=== PATIENT | female | born 1990 | race African-American/Black ===

== ENCOUNTER 2019-12-21 11:58 | Emergency (ER) | payer OTHER, SELFPAY ==
--- NOTE | 2019-12-21 12:14 | ED.GENADULT ---
HPI - General Adult General Chief complaint: Skin/Abscess/Foreign Body Stated complaint: insect bite Time Seen by Provider: 12/21/19 12:25 Source: patient Mode of arrival: ambulatory Limitations: no limitations History of Present Illness HPI narrative: 29-year-old female patient presents the [facility] care with complaints of swelling to the right wrist area for the past 2 days. Patient states that she was outside on december and felt a sting to her left wrist. Patient states that is now warm, swollen and red. Patient does have history of type 1 diabetes. Denies any fevers. Denies any chest pain or shortness of breath. Denies any nausea, vomiting or diarrhea. Related Data Home Medications Medication Instructions Recorded Confirmed furosemide 20 mg PO DAILY 12/21/19 12/21/19 insulin lispro 100 sliding scale dose SUBCUT 12/21/19 12/21/19 DIRECTED losartan 25 mg PO DAILY 12/21/19 12/21/19 potassium chloride 10 meq PO DAILY 12/21/19 12/21/19 pravastatin 80 mg PO DAILY 12/21/19 12/21/19 Allergies Allergy/AdvReac Type Severity Reaction Status Date / Time No Known Allergies Allergy Unverified 05/21/18 12:06 Review of Systems Review of Systems: Narrative: CONSTITUTIONAL: Denies fever, chills, or sweats. EYES: Denies visual changes, redness, or discharge. ENT: Denies rhinorrhea, congestion, sore throat, or otalgia. CARDIOVASCULAR: Denies chest pain, palpitations, or edema. RESPIRATORY: Denies cough or dyspnea. GASTROINTESTINAL: Denies abdominal pain, nausea, vomiting, or diarrhea. GENITOURINARY: Denies dysuria or hematuria. SKIN: Denies rash or itching. Positive swelling, redness to right wrist MUSCULOSKELETAL: Denies back pain, joint pain, or myalgia. NEUROLOGIC: Denies headache, numbness, or weakness. PSYCHIATRIC: Denies anxiety or depression. PMFSH Past Medical History Medical History (Updated 12/21/19 @ 12:37 by YIN Gardner) Hypercholesterolemia Type 1 diabetes Comments At the time of my signature I agree with nursing past medical history, surgical, social, and family history. There is no relevant family history pertinent to the presenting complaint. Exam Narrative: Exam Narrative: GENERAL: Well-appearing, well-nourished, and in no acute distress. HEAD: Normocephalic, atraumatic. EYES: PERRLA and EOMI. ENT: Nares clear, no rhinorrhea or epistaxis. Mucous membranes moist. NECK: Supple. No lymphadenopathy CHEST: Clear to auscultation. No respiratory distress. HEART: Regular rate and rhythm. No murmur heard. Normal peripheral pulses. ABDOMEN: Soft, nontender, nondistended, normal active bowel sounds. EXTREMITIES: Normal range of motion. No edema. SKIN: Warm, dry, no rash. Patient has swelling, redness and warmth noted to the right wrist area that extends about custodial up the forearm and has little bit of the base of the thumb involved. Patient has good range of motion. Pulses intact. There is also a small little sting noted in the middle of the swelling which patient states that that is where most of the pain is at. NEURO: No focal deficits. Alert and oriented x3. Course Vital Signs Vital signs: Vital Signs Temperature 36.1 C L 12/21/19 12:19 Pulse Rate 98 12/21/19 12:19 Respiratory Rate 16 12/21/19 12:19 Blood Pressure 118/73 12/21/19 12:19 Pulse Oximetry 99 12/21/19 12:19 Temperature 36.1 C L 12/21/19 12:19 Pulse Rate 98 12/21/19 12:19 Respiratory Rate 16 12/21/19 12:19 Blood Pressure 118/73 12/21/19 12:19 Pulse Oximetry 99 12/21/19 12:19 Vital signs reviewed. Medical Decision Making Differential Diagnosis Differential Diagnosis: Differential diagnosis: Abscess, cellulitis, hidradenitis, laceration, puncture wound. Cussed with patient it does appear that she most likely has developed a cellulitis from the sting and due to the fact that she is a type I diabetic we will discharge her home with antibiotics. Patient verbalized understanding of this d
[2019-12-21 12:19] VITALS: BP 118/73; PULSE 98; RESP 16; TEMP 36.1; O2SAT 99
== END 2019-12-21 12:45 | disposition home or self-care (01) ==
PROVIDERS: Emergency Provider Nurse Practitioner Family; PCP Internal Medicine
DX: L03.113 Cellulitis of right upper limb (principal); E10.9 Type 1 diabetes mellitus without complications; E78.00 Pure hypercholesterolemia, unspecified
CPT/HCPCS: 99213; G0463

== ENCOUNTER 2020-02-14 14:55 | Emergency (ER) | payer OTHER, SELFPAY ==
[2020-02-14 15:05] VITALS: BP 121/74; PULSE 105; RESP 16; TEMP 35.9; O2SAT 99
--- NOTE | 2020-02-14 15:12 | ED.EAR ---
HPI - Ear Problem General Chief complaint: Ear Stated complaint: ear/facial pain Time Seen by Provider: 02/14/20 15:13 Source: patient and RN notes reviewed Mode of arrival: ambulatory Limitations: no limitations History of Present Illness HPI Narrative: 29-year-old female with history of diabetes presents with concern for bilateral ear pain, nasal congestion, rhinorrhea, postnasal drainage. She denies fever, cough, shortness of breath, body aches. Reports she tried [id number] cold medicine with no relief. MD Complaint: ear pain Related Data Home Medications Medication Instructions Recorded Confirmed furosemide 20 mg PO DAILY 12/21/19 02/14/20 insulin lispro 2 unit CONTINUOUS SUBCUTANEOUS 12/21/19 02/14/20 INFUSION DIRECTED losartan 25 mg PO DAILY 12/21/19 02/14/20 potassium chloride 10 meq PO DAILY 12/21/19 02/14/20 pravastatin 80 mg PO DAILY 12/21/19 02/14/20 Allergies Allergy/AdvReac Type Severity Reaction Status Date / Time No Known Allergies Allergy Verified 02/14/20 15:00 Review of Systems Review of Systems: Narrative: CONSTITUTIONAL: Denies malaise, chills, sweats, or fever. EYES: Denies visual changes, redness, or discharge. ENT: Reports rhinorrhea, congestion, otalgia. Denies sinus pain, and sore throat. CARDIOVASCULAR: Denies chest pain, palpitations, or edema. RESPIRATORY: Reports occasional cough. Denies dyspnea. GASTROINTESTINAL: Denies abdominal pain, nausea, vomiting, diarrhea SKIN: Denies rash or itching. MUSCULOSKELETAL: Denies myalgia. NEUROLOGIC: Denies headache. All systems reviewed & are unremarkable except as noted in HPI and below PMFSH Past Medical History Medical History (Updated 02/14/20 @ 15:21 by Jania Bryan NP) Hypercholesterolemia Type 1 diabetes Social History Social History Gender identity (if verbalized by the patient): Female Comments At time of signature, agree with nursing past medical, surgical, social and family history. There is no relevant family history pertinent to the presenting complaint Exam Narrative: Exam Narrative: GENERAL: Well-appearing, well-nourished, and in no acute distress. HEAD: Normocephalic EYES: PERRLA, conjunctivae clear ENT: Nares clear, turbinates edematous and erythematous, clear discharge. Mucous membranes moist. TM pearly de la rosa with dull light reflex bilaterally; no tragal tenderness. Oropharynx not erythematous without lesions. Tonsils not enlarged and without exudate, no drooling, no hoarseness, no trismus, uvula midline. NECK: Supple. No lymphadenopathy CHEST: Clear to auscultation, breath sounds equal. No wheezing, rhonchi, rales, or stridor. No respiratory distress, speaks in full sentences. HEART: Regular rate and rhythm. No murmur heard. SKIN: Warm, dry, no rash. NEURO: Alert and oriented x3. PSYCH: Normal mood and affect Course Course Emergency Course: Patient is aware of diagnosis, understands and agrees to treatment plan. Anticipatory guidance given. Patient agrees to follow-up as directed and is aware of reasons to seek care at the emergency department. Portions of this record may have been created with voice recognition software Vital Signs Vital signs: Vital Signs Temperature 96.7 F L 02/14/20 15:05 Pulse Rate 105 H 02/14/20 15:05 Respiratory Rate 16 02/14/20 15:05 Blood Pressure 121/74 02/14/20 15:05 Pulse Oximetry 99 02/14/20 15:05 Temperature 96.7 F L 02/14/20 15:05 Pulse Rate 105 H 02/14/20 15:05 Respiratory Rate 16 02/14/20 15:05 Blood Pressure 121/74 02/14/20 15:05 Pulse Oximetry 99 02/14/20 15:05 Reviewed. Medical Decision Making MDM Narrative Medical decision making narrative: Differential diagnosis considered: Olivo virus, strep pharyngitis, allergic rhinitis, upper respiratory tract infection, sinusitis, rhinosinusitis, nasopharyngitis. viral pharyngitis, otitis media, otitis externa, pneumonia, bronch
== END 2020-02-14 15:30 | disposition home or self-care (01) ==
PROVIDERS: Emergency Provider Nurse Practitioner; PCP Internal Medicine
DX: H92.03 Otalgia, bilateral (principal); J06.9 Acute upper respiratory infection, unspecified; Z20.828 Contact with and (suspected) exposure to other viral communicable diseases; E78.00 Pure hypercholesterolemia, unspecified; E10.9 Type 1 diabetes mellitus without complications
CPT/HCPCS: 99213; G0463

== ENCOUNTER 2020-04-04 08:32 | Emergency (ER) | payer OTHER, SELFPAY ==
--- NOTE | ~2020-04-04 | CT_ITS ---
EXAMINATION: CT abdomen pelvis w con DATE: 04/04/2020 12:25 INDICATION: Dysuria. Abdominal pain. TECHNIQUE: Computed tomography (CT) of the abdomen and pelvis was performed with 100 mL Omnipaque 350 intravenous contrast. Automated exposure control and iterative reconstruction technique were employe d. The dose-length product was 683.82 mGy-cm. COMPARISON: None. FINDINGS: The visualized portions of the lung bases are clear without pneumonia or pleural effusion. The heart size is normal. No pericardial effusion. The liver, gallbladder, spleen, pancreas, and adre nal glands are normal. There are bilateral striated nephrograms, consistent with pyelonephritis. Ther e are no dilated loops of bowel. The appendix is normal. There are no pathologically enlarged lymph n odes. There is no free intraperitoneal fluid. The bones are unremarkable. IMPRESSION: 1. Bilateral pyelonephritis. Reviewed, dictated and finalized at location A.
[2020-04-04 08:40] VITALS: BP 133/87; PULSE 100; RESP 20; TEMP 36.2; O2SAT 100
[2020-04-04 08:58] LABS: Add Urine Microscopic? YES; Appearance Urine Clear (Clear); Bilirubin Urine Negative (Negative); Blood Urine Negative (Negative); Color Urine Colorless (Yellow); Glucose Urine UA 3+ mg/dL (Negative); Ketones Urine Negative (Negative); Leukocyte Esterase Ur Negative LEU/UL (Negative); Mucus Urine Rare /lpf; Nitrate Urine Negative (Negative); Protein Urine 1+ mg/dL (Negative); RBC Urine 0-2 /hpf (0-2); Specific Grav Ur 1.028 (1.001-1.035); Squamous Epithelial Cell Urine Occasional /hpf (Few); Urobilinogen Urine Negative mg/dL (<2.0); WBC Urine 0-3 /hpf
--- NOTE | 2020-04-04 09:10 | ED.GENADULT ---
HPI - General Adult General Chief complaint: Urogenital-Female Stated complaint: UTI sx Time Seen by Provider: 04/04/20 08:59 Source: patient History of Present Illness HPI narrative: Patient is a 29 y/o female complaining of lower abdominal pain since yesterday. She describes her pain as burning and knocking and rates it as 7/10. Her pain radiates to her pain. There is no alleviating or exacerbating factor. She has some dysuria and one episode of vomiting. She has no diarrhea. Related Data Home Medications Medication Instructions Recorded Confirmed furosemide 20 mg PO DAILY 12/21/19 02/14/20 insulin lispro 2 unit CONTINUOUS SUBCUTANEOUS 12/21/19 02/14/20 INFUSION DIRECTED losartan 25 mg PO DAILY 12/21/19 02/14/20 potassium chloride 10 meq PO DAILY 12/21/19 02/14/20 pravastatin 80 mg PO DAILY 12/21/19 02/14/20 Allergies Allergy/AdvReac Type Severity Reaction Status Date / Time No Known Allergies Allergy Verified 02/14/20 15:00 Review of Systems Constitutional: Constitutional: Denies chills, Denies fever(s), Denies headache(s) and Denies weakness Eyes: Eyes: Denies blurry vision ENT: Denies headache(s) and Denies neck pain Cardiovascular: Cardiovascular: Denies chest pain and Denies dyspnea Respiratory: Respiratory: Denies cough and Denies dyspnea Gastrointestinal: Gastrointestinal: Reports abdominal pain, Denies diarrhea, Reports nausea and Reports vomiting Genitourinary: Genitourinary: Denies hematuria and Reports dysuria Musculoskeletal: Musculoskeletal: Denies back pain and Denies neck pain Neurologic: Denies headache(s) and Denies weakness [facility] Past Medical History Medical History Hypercholesterolemia Type 1 diabetes Social History Social History Gender identity (if verbalized by the patient): Female Exam Const: General: no acute distress and well developed Orientation/consciousness: oriented to person, oriented to place, oriented to time and patient oriented x3 HENMT: Head: normocephalic Ears: external ears normal General nose exam: Normal external nose present Eyes: General: appearance normal, both eyes and all related structures Conjunctivae: conjunctivae normal Neck: Neck: normal visual inspection and full ROM Chest: Chest palpation & inspection: normal inspection of the chest and no tenderness Resp: Effort & Inspection: normal respiratory effort Auscultation: clear to auscultation bilaterally Cardio: Rate: regular rate Rhythm: regular rhythm GI: GI Palp: No abdominal tenderness and Yes Soft to palpation Skin: General skin exam: normal color and turgor normal Neuro: General: oriented to person, oriented to place, oriented to time and patient oriented x3 Cognition (Neuro): normal cognition Extrem: General: normal to inspection, full ROM and no pedal edema Psych: Appearance: grossly normal Mental Status: mental status grossly normal Affect: normal affect Course Vital Signs Vital signs: Vital Signs Temperature 36.2 C L 04/04/20 08:40 Pulse Rate 100 04/04/20 08:40 Respiratory Rate 20 04/04/20 08:40 Blood Pressure 133/87 04/04/20 08:40 Pulse Oximetry 100 04/04/20 08:40 Temperature 36.2 C L 04/04/20 08:40 Pulse Rate 100 04/04/20 08:40 Respiratory Rate 20 04/04/20 08:40 Blood Pressure 133/87 04/04/20 08:40 Pulse Oximetry 100 04/04/20 08:40 Medical Decision Making Vital Signs Vital Signs: Vital Signs Temperature 36.2 C L 04/04/20 08:40 Pulse Rate 100 04/04/20 08:40 Respiratory Rate 20 04/04/20 08:40 Blood Pressure 133/87 04/04/20 08:40 Pulse Oximetry 100 04/04/20 08:40 Temperature 36.2 C L 04/04/20 08:40 Pulse Rate 100 04/04/20 08:40 Respiratory Rate 20 04/04/20 08:40 Blood Pressure 133/87 04/04/20 08:40 Pulse Oximetry 100 04/04/20 08:40 Lab Data Labs: Lab Results 10
[2020-04-04 09:18] LABS: Basophils Absolute Auto 0.1 K/mm3 (0.0-0.1); Basophils Percent Auto 0.6 % (0.2-1.2); Eosinophils Absolute Auto 0.4 K/mm3 (0-0.3); Hematocrit 40.4 % (37.0-47.0); Hemoglobin 13.5 g/dL (12.0-15.0); Immature Granulocyte Absolute 0.05 K/mm3 (0.00-0.031); Immature Granulocyte Percent A 0.4 % (0-0.5); Lymphocytes Absolute Auto 4.66 K/mm3 (0.9-3.2); Lymphocytes Percent Auto 33.6 % (18.3-44.2); Mean Corpuscular HGB Conc 33.4 g/dl (32-36); Mean Corpuscular Hemoglobin 29.1 pg (26-34); Mean Corpuscular Volume 87.1 fl (80-100); Mean Platelet Volume 11.2 fl (7.4-10.4); Monocytes Absolute Auto 0.7 K/mm3 (0.1-0.6); Monocytes Percent Auto 5.3 % (2.6-8.5); Neutrophils Absolute Auto 7.9 K/mm3 (1.3-6.7); Neutrophils Percent Auto 57.1 % (45.5-73.1); Platelet Count Result 391 k/mm3 (150-375); Red Blood Count 4.64 M/mm3 (4.2-5.4); Red Cell Distribution Width 12.1 % (11.5-14.5); White Blood Count 13.9 K/mm3 (4.5-10.0)
--- NOTE | 2020-04-04 09:29 | ED.GENADULT ---
HPI - General Adult General Chief complaint: Urogenital-Female Stated complaint: UTI sx Time Seen by Provider: 04/04/20 08:59 Source: patient History of Present Illness HPI narrative: Patient is a 29 y/o female complaining of lower abdominal pain since yesterday. She describes her pain as burning and knocking. She rates her pain as 7/10. Her pain radiates to her back. There is no alleviating or exacerbating factor. She had one episode of vomiting. She also has some dysuria. Related Data Home Medications Medication Instructions Recorded Confirmed furosemide 20 mg PO DAILY 12/21/19 02/14/20 insulin lispro 2 unit CONTINUOUS SUBCUTANEOUS 12/21/19 02/14/20 INFUSION DIRECTED losartan 25 mg PO DAILY 12/21/19 02/14/20 potassium chloride 10 meq PO DAILY 12/21/19 02/14/20 pravastatin 80 mg PO DAILY 12/21/19 02/14/20 Allergies Allergy/AdvReac Type Severity Reaction Status Date / Time No Known Allergies Allergy Verified 02/14/20 15:00 Review of Systems Constitutional: Constitutional: Denies chills, Denies fever(s), Denies headache(s) and Denies weakness Eyes: Eyes: Denies blurry vision ENT: Denies headache(s) and Denies neck pain Cardiovascular: Cardiovascular: Denies chest pain and Denies dyspnea Respiratory: Respiratory: Denies cough and Denies dyspnea Gastrointestinal: Gastrointestinal: Reports abdominal pain, Denies diarrhea, Reports nausea and Reports vomiting Genitourinary: Genitourinary: Denies hematuria and Reports dysuria Musculoskeletal: Musculoskeletal: Denies back pain and Denies neck pain Neurologic: Denies headache(s) and Denies weakness [facility] Past Medical History Medical History Hypercholesterolemia Type 1 diabetes Social History Social History Gender identity (if verbalized by the patient): Female Exam Const: General: no acute distress and well developed Orientation/consciousness: oriented to person, oriented to place, oriented to time and patient oriented x3 HENMT: Head: normocephalic Ears: external ears normal General nose exam: Normal external nose present Eyes: General: appearance normal, both eyes and all related structures Conjunctivae: conjunctivae normal Neck: Neck: normal visual inspection and full ROM Chest: Chest palpation & inspection: normal inspection of the chest and no tenderness Resp: Effort & Inspection: normal respiratory effort Auscultation: clear to auscultation bilaterally Cardio: Rate: regular rate Rhythm: regular rhythm GI: GI Palp: No abdominal tenderness and Yes Soft to palpation Skin: General skin exam: normal color and turgor normal Neuro: General: oriented to person, oriented to place, oriented to time and patient oriented x3 Cognition (Neuro): normal cognition Extrem: General: normal to inspection, full ROM and no pedal edema Psych: Appearance: grossly normal Mental Status: mental status grossly normal Affect: normal affect Course Reevaluation(s) Reevaluation #1: Rechecked. Discussed with patient about lab and CT results. Informed patient about high BS. She has insulin pump. She states that she adjust her pump accordingly. Date: 04/04/20 Time: 13:20 Vital Signs Vital signs: Vital Signs Temperature 36.2 C L 04/04/20 08:40 Pulse Rate 100 04/04/20 08:40 Respiratory Rate 20 04/04/20 08:40 Blood Pressure 133/87 04/04/20 08:40 Pulse Oximetry 100 04/04/20 08:40 Temperature 36.2 C L 04/04/20 08:40 Pulse Rate 76 04/04/20 13:41 Respiratory Rate 18 04/04/20 13:41 Blood Pressure 128/97 H 04/04/20 13:41 Pulse Oximetry 94 04/04/20 13:41 Medical Decision Making Vital Signs Vital Signs: Vital Signs Temperature 36.2 C L 04/04/20 08:40 Pulse Rate 100 04/04/20 08:40 Respiratory Rate 20 04/04/20 08:40 Blood Pressure 133/87 04/04/20 08:40 Pulse Oximetry 100 04/04/20 08:40 Temperatu
[2020-04-04 10:26] LABS: Alanine Aminotransferase 21 U/L (4-35); Albumin Level 3.8 g/dL (3.5-5.1); Alkaline Phosphatase 86 U/L (38-126); Anion Gap 6 mmol/L (8-16); Aspartate Amino Transferase 20 U/L (14-36); Bilirubin,Total 0.3 mg/dL (0.2-1.3); Blood Urea Nitrogen 21 mg/dL (7-17); Calcium 10.4 mg/dL (8.4-10.2); Carbon Dioxide 29 mmol/L (22-30); Chloride 99 mmol/L (98-107); Estimated CRCL calculation 74 ml/min; Estimated Glomerular Filt Rate > 60; Glucose 423 mg/dL (65-105); Lipase 36 U/L (23-300); Potassium 4.3 mmol/L (3.4-5.0); Sodium 134 mmol/L (137-145)
--- NOTE | 2020-04-04 11:11 | PC.NURSE ---
rn report from delilah
[2020-04-04 13:41] VITALS: BP 128/97; PULSE 76; RESP 18; O2SAT 94
== END 2020-04-04 13:43 | disposition home or self-care (01) ==
PROVIDERS: Emergency Provider Emergency Medicine; PCP Internal Medicine
DX: E10.65 Type 1 diabetes mellitus with hyperglycemia (principal); E78.00 Pure hypercholesterolemia, unspecified; Z79.4 Long term (current) use of insulin; N12 Tubulo-interstitial nephritis, not specified as acute or chronic
CPT/HCPCS: 36415; 74177; 80053; 81001; 81025; 83690; 85025; 99284; Q9967

== ENCOUNTER 2020-07-27 16:05 | Emergency (ER) | payer OTHER, SELFPAY ==
--- NOTE | 2020-07-27 16:10 | ED.URI ---
HPI - URI/Sore Throat General Chief Complaint: Upper Respiratory Infection Stated Complaint: body chills/cough/sore throat/runny nose Time Seen by Provider: 07/27/20 16:45 Source: patient and RN notes reviewed Mode of arrival: ambulatory Limitations: no limitations History of Present Illness HPI Narrative: 30-year-old female with history of diabetes presents with concern for body aches, chills, cough, runny nose, ears ringing, loss of taste. Reports symptoms started yesterday. She denies fever, dyspnea, nausea, vomiting, diarrhea MD elicited complaint: cough Related Data Home Medications Medication Instructions Recorded Confirmed insulin lispro 2 unit CONTINUOUS SUBCUTANEOUS 12/21/19 02/14/20 INFUSION DIRECTED losartan 25 mg PO DAILY 12/21/19 02/14/20 pravastatin 80 mg PO DAILY 12/21/19 02/14/20 omega-3 fatty acids-fish oil [Fish cap 07/27/20 Oil] Allergies Allergy/AdvReac Type Severity Reaction Status Date / Time No Known Allergies Allergy Verified 02/14/20 15:00 Review of Systems Review of Systems: Narrative: CONSTITUTIONAL: Reports malaise, chills. Denies sweats, or fever. EYES: Denies visual changes, redness, or discharge. ENT: Reports rhinorrhea, congestion, otalgia. Denies sore throat. CARDIOVASCULAR: Denies chest pain, palpitations, or edema. RESPIRATORY: Reports occasional cough. Denies dyspnea. GASTROINTESTINAL: Denies abdominal pain, nausea, vomiting, diarrhea SKIN: Denies rash or itching. MUSCULOSKELETAL: Reports myalgia. NEUROLOGIC: Denies headache. All systems reviewed & are unremarkable except as noted in HPI and below PMFSH Past Medical History Medical History Hypercholesterolemia Type 1 diabetes Social History Social History Gender identity (if verbalized by the patient): Female Comments At time of signature, agree with nursing past medical, surgical, social and family history. There is no relevant family history pertinent to the presenting complaint Exam Narrative: Exam Narrative: GENERAL: Well-appearing, well-nourished, and in no acute distress. HEAD: Normocephalic EYES: PERRLA, conjunctivae clear ENT: Nares clear, turbinates erythematous, clear discharge. Mucous membranes moist. TM pearly de la rosa with dull light reflex bilaterally; no tragal tenderness. Oropharynx not erythematous without lesions. Tonsils not enlarged and without exudate, no drooling, no hoarseness, no trismus, uvula midline. NECK: Supple. No lymphadenopathy CHEST: Clear to auscultation, breath sounds equal. No wheezing, rhonchi, rales, or stridor. No respiratory distress, speaks in full sentences. HEART: Regular rate and rhythm. No murmur heard. SKIN: Warm, dry, no rash. NEURO: Alert and oriented x3. PSYCH: Normal mood and affect Course Course Emergency Course: Patient is aware of diagnosis, understands and agrees to treatment plan. Anticipatory guidance given. Patient agrees to follow-up as directed and is aware of reasons to seek care at the emergency department. Portions of this record may have been created with voice recognition software Vital Signs Vital signs: Vital Signs Temperature 98.5 F 07/27/20 16:22 Pulse Rate 100 07/27/20 16:22 Respiratory Rate 16 07/27/20 16:22 Blood Pressure 114/80 07/27/20 16:22 Pulse Oximetry 98 07/27/20 16:22 Temperature 98.5 F 07/27/20 16:22 Pulse Rate 100 07/27/20 16:22 Respiratory Rate 16 07/27/20 16:22 Blood Pressure 114/80 07/27/20 16:22 Pulse Oximetry 98 07/27/20 16:22 Reviewed. MDM - URI/Sore Throat MDM Narrative Medical decision making narrative: Differential diagnosis considered: Olivo virus, strep pharyngitis, allergic rhinitis, upper respiratory tract infection, sinusitis, rhinosinusitis, nasopharyngitis. viral pharyngitis, otitis media, otitis externa, pneumonia, bronchitis, viral cough syndrome, viral syndrome, and
[2020-07-27 16:22] VITALS: BP 114/80; PULSE 100; RESP 16; TEMP 36.9; O2SAT 98
== END 2020-07-27 16:50 | disposition home or self-care (01) ==
PROVIDERS: Emergency Provider Nurse Practitioner; PCP Internal Medicine
DX: U07.1 COVID-19 (principal); E78.00 Pure hypercholesterolemia, unspecified; E10.9 Type 1 diabetes mellitus without complications
CPT/HCPCS: 87426; 99213; C9803; G0463

== ENCOUNTER 2020-10-29 17:37 | Emergency (ER) | payer OTHER, SELFPAY ==
[2020-10-29 17:45] VITALS: BP 140/94; PULSE 107; RESP 17; TEMP 36.5; O2SAT 99
--- NOTE | 2020-10-29 19:33 | ED.DENTAL ---
HPI - Dental/Oral General Chief complaint: Dental/Oral Stated complaint: bad toothache Time Seen by Provider: 10/29/20 19:01 Source: patient Mode of arrival: ambulatory Limitations: no limitations History of Present Illness HPI Narrative: This is a 30-year-old female that presents the emergency department for toothache since yesterday. Reports she has been taking Tylenol with little relief. Denies fever. Complaint: tooth pain Location: Tooth # (29) Related Data Home Medications Medication Instructions Recorded Confirmed insulin lispro 2 unit CONTINUOUS SUBCUTANEOUS 12/21/19 02/14/20 INFUSION DIRECTED losartan 25 mg PO DAILY 12/21/19 02/14/20 pravastatin 80 mg PO DAILY 12/21/19 02/14/20 omega-3 fatty acids-fish oil [Fish cap 07/27/20 Oil] Allergies Allergy/AdvReac Type Severity Reaction Status Date / Time No Known Allergies Allergy Verified 10/29/20 17:54 Review of Systems Review of Systems: Narrative: CONSTITUTIONAL: Denies fever ENT: Reports dentalgia All systems reviewed & are unremarkable except as noted in HPI and below PMFSH Past Medical History Medical History Hypercholesterolemia Type 1 diabetes Social History Social History Gender identity (if verbalized by the patient): Female Exam Narrative: Exam Narrative: GENERAL: Well-appearing, well-nourished, and in no acute distress. HEAD: Normocephalic, atraumatic. EYES: EOMI. ENT: Tooth #29 tender to palpation, without surrounding erythema or edema to suggest abscess. No trismus. Floor of mouth is soft NECK: Supple. No adenopathy or masses. CHEST: Clear to auscultation. No respiratory distress. No wheezes rales or rhonchi HEART: Regular rate and rhythm. No murmur heard. Normal peripheral pulses. EXTREMITIES: Normal range of motion. No edema. SKIN: Warm, dry, no rash. NEURO: No focal deficits. Alert and oriented x3. PSYCH: Normal mood and affect Course Vital Signs Vital signs: Vital Signs Temperature 97.7 F 10/29/20 17:45 Pulse Rate 107 H 10/29/20 17:45 Respiratory Rate 17 05/15/21 17:45 Blood Pressure 140/94 H 10/29/20 17:45 Pulse Oximetry 99 10/29/20 17:45 Temperature 97.7 F 10/29/20 17:45 Pulse Rate 107 H 10/29/20 17:45 Respiratory Rate 17 10/29/20 17:45 Blood Pressure 140/94 H 10/29/20 17:45 Pulse Oximetry 99 10/29/20 17:45 MDM - Dental/Oral MDM Narrative Medical decision making narrative: Patient presents to the emergency department for toothache. She is afebrile and nontoxic-appearing. No erythema or fluctuance surrounding tooth to suggest abscess. Patient will be started on oral antibiotics. She is to follow-up with a dentist. She was given warnings to return to the ER Critical Care Time Critical Care Time Critical Care Time: No Discharge Plan Discharge Clinical Impression: Toothache Patient Disposition: Home, Self-Care Condition: Stable Instructions: Antibiotic Form, Toothache (ED) Additional Instructions: Return to the Emergency Department if you experience fever >101, increasing swelling and redness of your tooth, or any other symptoms that are concerning to you Take antibiotic as prescribed. Tylenol or Ibuprofen as needed for pain. You can apply a dab of clove oil to a Qtip and apply to the tooth to help numb the area Follow up with your dentist Prescriptions: New amoxicillin-pot clavulanate 875-125 mg tablet 1 tablet PO Q12H 7 Days Qty: 14 RF: 0 No Action cetirizine-pseudoephedrine [Zyrtec-D] 5-120 mg tablet extended release 12 hr 1 tablet PO Q12H PRN (Reason: nasal congestion) Qty: 12 RF: 0 fluticasone propionate [Flonase Allergy Relief] 50 mcg/actuation spray,suspension 2 spray NASAL DAILY 14 Days Qty: 15.8 RF: 0 pravastatin 80 mg tablet 80 mg PO DAILY RF: 0 losartan 25 mg tablet 25 mg PO DAILY RF: 0 insulin l
[2020-10-29] MEDS: KETOROLAC (*BKC) 60 MG/2 ML VIAL IM (19:49)
[2020-10-29 20:07] VITALS: BP 120/76; PULSE 86; RESP 18; O2SAT 100
== END 2020-10-29 20:09 | disposition home or self-care (01) ==
PROVIDERS: Emergency Provider Emergency Medicine; PCP Internal Medicine
DX: K08.89 Other specified disorders of teeth and supporting structures (principal); E78.00 Pure hypercholesterolemia, unspecified; E10.9 Type 1 diabetes mellitus without complications
CPT/HCPCS: 96372; 99283; J1885

== ENCOUNTER 2021-01-26 13:12 | Emergency (ER) | payer OTHER, SELFPAY ==
[2021-01-26 13:20] VITALS: BP 114/75; PULSE 104; RESP 18; TEMP 36.6; O2SAT 99
--- NOTE | 2021-01-26 14:08 | ED.URI ---
HPI - URI/Sore Throat General Chief Complaint: Upper Respiratory Infection Stated Complaint: Sore Throat Time Seen by Provider: 01/26/21 14:08 Source: patient and RN notes reviewed Mode of arrival: ambulatory Limitations: no limitations History of Present Illness HPI Narrative: 30-year-old female presents with concern for sore throat, ear pain. Reports symptoms started several days ago. She denies fever, body aches, chills, sweats. Denies known sick contacts. Reports she has been taking Tylenol and ibuprofen for pain relief. MD elicited complaint: sore throat Related Data Home Medications Medication Instructions Recorded Confirmed insulin lispro 2 unit CONTINUOUS SUBCUTANEOUS 12/21/19 01/26/21 INFUSION DIRECTED pravastatin 80 mg PO DAILY 12/21/19 01/26/21 Allergies Allergy/AdvReac Type Severity Reaction Status Date / Time No Known Allergies Allergy Verified 01/26/21 13:23 Review of Systems Review of Systems: CONSTITUTIONAL: Denies malaise, chills, sweats, or fever. EYES: Denies visual changes, redness, or discharge. ENT: Denies rhinorrhea, congestion, sinus pain. Reports otalgia and sore throat. CARDIOVASCULAR: Denies chest pain, palpitations, or edema. RESPIRATORY: Denies cough or dyspnea. GASTROINTESTINAL: Denies abdominal pain, nausea, vomiting, diarrhea SKIN: Denies rash or itching. MUSCULOSKELETAL: Denies myalgia. NEUROLOGIC: Denies headache. All systems reviewed & are unremarkable except as noted in HPI and below PMFSH Past Medical History Medical History Hypercholesterolemia Type 1 diabetes Social History Social History Gender identity (if verbalized by the patient): Female Comments At time of signature, agree with nursing past medical, surgical, social and family history. There is no relevant family history pertinent to the presenting complaint Exam Narrative: GENERAL: Well-appearing, well-nourished, and in no acute distress. HEAD: Normocephalic EYES: PERRLA, conjunctivae clear ENT: Nares clear, turbinates erythematous, clear discharge. Mucous membranes moist. TM pearly [place] with dull light reflex bilaterally; no tragal tenderness. Oropharynx erythematous without lesions. Tonsils enlarged and without exudate, no drooling, no hoarseness, no trismus, uvula midline. NECK: Supple. No lymphadenopathy CHEST: Clear to auscultation, breath sounds equal. No wheezing, rhonchi, rales, or stridor. No respiratory distress, speaks in full sentences. HEART: Regular rate and rhythm. No murmur heard. SKIN: Warm, dry, no rash. NEURO: Alert and oriented x3. PSYCH: Normal mood and affect Course Course Emergency Course: Patient is aware of diagnosis, understands and agrees to treatment plan. Anticipatory guidance given. Patient agrees to follow-up as directed and is aware of reasons to seek care at the emergency department. Portions of this record may have been created with voice recognition software Vital Signs Vital signs: Vital Signs Temperature 97.8 F 01/26/21 13:20 Pulse Rate 104 H 01/26/21 13:20 Respiratory Rate 18 01/26/21 13:20 Blood Pressure 114/75 01/26/21 13:20 Pulse Oximetry 99 01/26/21 13:20 Temperature 97.8 F 01/26/21 13:20 Pulse Rate 104 H 01/26/21 13:20 Respiratory Rate 18 01/26/21 13:20 Blood Pressure 114/75 01/26/21 13:20 Pulse Oximetry 99 01/26/21 13:20 Reviewed. MDM - URI/Sore Throat MDM Narrative Medical decision making narrative: Differential diagnosis considered: Olivo virus, strep pharyngitis, allergic rhinitis, upper respiratory tract infection, sinusitis, rhinosinusitis, nasopharyngitis. viral pharyngitis, otitis media, otitis externa, pneumonia, bronchitis, viral cough syndrome, viral syndrome, and influenza. Exam findings show no acute concerns or changes; patient is non-toxic appearing and is in no distress. Patient is appropriate for
== END 2021-01-26 14:31 | disposition home or self-care (01) ==
PROVIDERS: Emergency Provider Nurse Practitioner; PCP Internal Medicine
DX: J06.9 Acute upper respiratory infection, unspecified (principal); Z86.19 Personal history of other infectious and parasitic diseases; Z20.822 Contact with and (suspected) exposure to COVID-19; E78.00 Pure hypercholesterolemia, unspecified; E10.9 Type 1 diabetes mellitus without complications
CPT/HCPCS: 87081; 87426; 87880; 99213; C9803; G0463

== ENCOUNTER 2021-01-27 20:45 | Emergency (ER) | payer OTHER, SELFPAY ==
[2021-01-27 21:28] VITALS: BP 113/67; PULSE 100; RESP 18; TEMP 36.3; O2SAT 100
== END 2021-01-27 22:33 | disposition left against medical advice (07) ==
LOC: ANHED 23:43
PROVIDERS: Emergency Provider Emergency Medicine; PCP Internal Medicine
DX: J02.9 Acute pharyngitis, unspecified (principal); Z53.21 Procedure and treatment not carried out due to patient leaving prior to being seen by health care provider
CPT/HCPCS: 87081; 87880; 99199

== ENCOUNTER 2021-01-28 07:10 | Emergency (ER) | payer OTHER, SELFPAY ==
[2021-01-28 07:13] VITALS: BP 125/86; PULSE 110; RESP 20; TEMP 35.9; O2SAT 100
--- NOTE | 2021-01-28 08:05 | ED.GENADULT ---
HPI - General Adult General Chief complaint: Ear Stated complaint: sore throat Time Seen by Provider: 01/28/21 08:02 Source: patient Mode of arrival: ambulatory Limitations: no limitations History of Present Illness HPI narrative: Patient is 30 years old -[place] female presents with sore throat, ear pain started 1 week ago, was seen at urgent care was negative rapid strep and Covid. Patient still hurting. Patient denies any fever, chills, nausea, vomiting, chest pain, shortness of breath, history of diabetes. Patient also complaining of green discharge for the last few days with pain, denies any blisters.. Patient is not vaccinated for COVID-19, denies exposure to anybody known having COVID-19 Related Data Home Medications Medication Instructions Recorded Confirmed insulin lispro 2 unit CONTINUOUS SUBCUTANEOUS 12/21/19 01/28/21 INFUSION DIRECTED pravastatin 80 mg PO DAILY 12/21/19 01/28/21 Allergies Allergy/AdvReac Type Severity Reaction Status Date / Time No Known Allergies Allergy Verified 01/28/21 07:14 Review of Systems Review of Systems: CONSTITUTIONAL: Denies fever, chills, or sweats. EYES: Denies visual changes, redness, or discharge. ENT: Denies rhinorrhea, congestion, sore throat, or otalgia. CARDIOVASCULAR: Denies chest pain, palpitations, or edema. RESPIRATORY: Denies cough or dyspnea. GASTROINTESTINAL: Denies abdominal pain, nausea, vomiting, or diarrhea. GENITOURINARY: Denies dysuria or hematuria. SKIN: Denies rash or itching. MUSCULOSKELETAL: Denies back pain, joint pain, or myalgia. NEUROLOGIC: Denies headache, numbness, or weakness. PSYCHIATRIC: Denies anxiety or depression. PMFSH Past Medical History Medical History Hypercholesterolemia Type 1 diabetes Social History Social History Gender identity (if verbalized by the patient): Female Exam Narrative: General appearance: Well-developed, well-nourished Skin: Normal color Head: Normocephalic, nontraumatic Eyes: Clear conjunctiva ENT: Oropharyngeal erythema Neck: Supple, nontender Chest and respiratory: Airway patent, no respiratory distress, no accessory muscle use Heart: Regular rate/rhythm Abdomen: Soft, nontender, no organomegaly, quiet bowel sounds Vascular: Normal peripheral pulses, normal capillary refill. Musculoskeletal: Normal range of motion, nontender back Neurologic: Alert and oriented ?3, [employer] is normal as tested, no gross motor deficit Course Course Emergency Course: Stable Vital Signs Vital signs: Vital Signs Temperature 35.9 C L 01/28/21 07:13 Pulse Rate 110 H 01/28/21 07:13 Respiratory Rate 20 01/28/21 07:13 Blood Pressure 125/86 01/28/21 07:13 Pulse Oximetry 100 01/28/21 07:13 Temperature 35.9 C L 01/28/21 07:13 Pulse Rate 110 H 01/28/21 07:13 Respiratory Rate 01/28/21 07:13 Blood Pressure 125/86 01/28/21 07:13 Pulse Oximetry 100 01/28/21 07:13 Medical Decision Making MDM Narrative Medical decision making narrative: Upper respiratory infection is my concern. Differential Diagnosis Differential Diagnosis: Strep throat, upper respiratory viral infection Vital Signs Vital Signs: Vital Signs Temperature 35.9 C L 01/28/21 07:13 Pulse Rate 110 H 01/28/21 07:13 Respiratory Rate 01/28/21 07:13 Blood Pressure 125/86 01/28/21 07:13 Pulse Oximetry 100 01/28/21 07:13 Temperature 35.9 C L 01/28/21 07:13 Pulse Rate 110 H 01/28/21 07:13 Respiratory Rate 01/28/21 07:13 Blood Pressure 125/86 01/28/21 07:13 Pulse Oximetry 100 01/28/21 07:13 Lab
[2021-01-28 09:51] VITALS: BP 128/82; PULSE 66; RESP 20; O2SAT 100
[2021-01-28 09:53] LABS: Monoscreen Negative (Negative); Negative Monotest Control Negative (Negative); Positive Monotest Control Positive (Positive)
[2021-01-28 17:52] LABS: SARS-CoV-2 RNA PCR Negative
== END 2021-01-28 09:52 | disposition home or self-care (01) ==
PROVIDERS: Emergency Provider Emergency Medicine; PCP Internal Medicine
DX: J06.9 Acute upper respiratory infection, unspecified (principal); H92.09 Otalgia, unspecified ear; Z20.822 Contact with and (suspected) exposure to COVID-19; E10.9 Type 1 diabetes mellitus without complications; E78.00 Pure hypercholesterolemia, unspecified; Z79.4 Long term (current) use of insulin
CPT/HCPCS: 86308; 87081; 99283; C9803; U0003; U0005

== ENCOUNTER 2021-11-23 20:19 | Emergency (ER) | payer OTHER, SELFPAY ==
[2021-11-23 20:49] VITALS: BP 126/88; PULSE 99; RESP 18; TEMP 36.7; O2SAT 100
[2021-11-23 21:17] LABS: Appearance Urine Clear (Clear); Bilirubin Urine Negative (Negative); Blood Urine 1+ (Negative); Color Urine Yellow (Yellow); Glucose Urine UA 3+ mg/dL (Negative); Ketones Urine Negative (Negative); Leukocyte Esterase Ur Negative LEU/UL (Negative); Nitrate Urine Negative (Negative); Protein Urine 3+ mg/dL (Negative); Urobilinogen Urine 0.2 mg/dL (<2.0)
[2021-11-23 21:21] LABS: Mucus Urine Rare /lpf; RBC Urine 0-2 /hpf (0-2); Squamous Epithelial Cell Urine Moderate /hpf (Few); WBC Urine 0-3 /hpf
[2021-11-23 21:38] LABS: Add Urine Microscopic? YES
--- NOTE | 2021-11-23 22:25 | PC.NURSE ---
Pt aox3 states I will come back in the am .
== END 2021-11-23 22:33 | disposition left against medical advice (07) ==
LOC: ANHED 22:32
PROVIDERS: Emergency Provider Emergency Medicine; PCP Internal Medicine
DX: Z53.21 Procedure and treatment not carried out due to patient leaving prior to being seen by health care provider (principal)
CPT/HCPCS: 81001; 99199

== ENCOUNTER 2021-12-22 23:40 | Emergency (ER) | payer OTHER, SELFPAY ==
[2021-12-22 23:48] VITALS: BP 151/97; PULSE 103; RESP 16; TEMP 36.7; O2SAT 100
[2021-12-23 00:03] LABS: Appearance Urine Clear (Clear); Bilirubin Urine Negative (Negative); Blood Urine 1+ (Negative); Color Urine Yellow (Yellow); Glucose Urine UA 3+ mg/dL (Negative); Ketones Urine Negative (Negative); Leukocyte Esterase Ur 1+ LEU/UL (Negative); Nitrate Urine Negative (Negative); Protein Urine 3+ mg/dL (Negative); Urobilinogen Urine 0.2 mg/dL (<2.0)
[2021-12-23 00:06] LABS: Mucus Urine Rare /lpf; Squamous Epithelial Cell Urine Many /hpf (Few)
[2021-12-23 00:18] LABS: Add Urine Microscopic? YES
[2021-12-23 00:47] LABS: Glucose Point of Care 143 mg/dl (65-105)
--- NOTE | 2021-12-23 00:52 | ED.GENADULT ---
HPI - General Adult General Chief complaint: Urogenital-Female Stated complaint: uti symptoms Time Seen by Provider: 12/22/21 23:43 Source: RN notes reviewed History of Present Illness HPI narrative: Patient presents emergency room from home for possible urinary tract infection. Patient states symptoms began yesterday. States has been having urinary frequency as well as some burning with urination. She denies any fevers or chills abdominal pain nausea vomiting diarrhea back pain or any other symptoms. States she has had previous UTIs and feels similar in the past Related Data Home Medications Medication Instructions Recorded Confirmed insulin lispro 100 unit/mL 2 unit continuous subcutaneous 12/21/19 01/28/21 subcutaneous solution infusion DIRECTED pravastatin 80 mg tablet 80 mg PO DAILY 12/21/19 01/28/21 Allergies Allergy/AdvReac Type Severity Reaction Status Date / Time Penicillins Allergy Itching Verified 12/22/21 23:53 Review of Systems Review of Systems: Gen.: Denies fevers or chills ENT: Denies congestion Respiratory: Denies shortness of breath or cough CV: Denies chest pain GI: Denies abdominal pain nausea, emesis or diarrhea see HPI Musculoskeletal: Denies back pain or muscle pain Neuro: Denies headache or weakness Skin: Denies rash Except as documented, all other systems reviewed and negative [facility] Past Medical History Medical History Hypercholesterolemia Type 1 diabetes Social History Social History (Updated 12/23/21 @ 00:53 by Dung Reynolds DO) Smoking status: Never smoker Gender identity (if verbalized by the patient): Female Exam Narrative: APPEARANCE: No acute distress, nontoxic, resting in bed EYES: EOMI HEENT: Normocephalic, atraumatic, OMM RESPIRATORY: No respiratory distress Clear to auscultation bilaterally with no rhonchi wheezing or rales. CARDIOVASCULAR: Regular rate and rhythm without murmurs rubs or gallops. ABDOMINAL: Soft, nontender, nondistended, no rebound or guarding no flank tenderness MUSCULOSKELETAl: Moves all extremities. No clubbing, cyanosis or edema. NEURO: Awake and alert. Following commands, speech normal, no focal deficits SKIN:: Warm, dry. No rashes lesions or abrasions PSYCHIATRIC: Normal affect/mood, Course Course Emergency Course: Discussed with patient results of workup and diagnosis. Discussed need for follow-up with primary care, proper use of medication, and reasons to return to the emergency department. Patient understands and agrees to current treatment plan Vital Signs Vital signs: Vital Signs Temperature 98.1 F 12/22/21 23:48 Pulse Rate 103 H 12/22/21 23:48 Respiratory Rate 16 12/22/21 23:48 Blood Pressure 151/97 H 12/22/21 23:48 Pulse Oximetry 100 12/22/21 23:48 Oxygen Delivery Room Air 12/22/21 23:48 Temperature 98.1 F 12/22/21 23:48 Pulse Rate 103 H 12/22/21 23:48 Respiratory Rate 16 12/22/21 23:48 Blood Pressure 151/97 H 12/22/21 23:48 Pulse Oximetry 100 12/22/21 23:48 Oxygen Delivery Room Air 12/22/21 23:48 Medical Decision Making Vital Signs Vital Signs: Vital Signs Temperature 98.1 F 12/22/21 23:48 Pulse Rate 103 H 12/22/21 23:48 Respiratory Rate 16 12/22/21 23:48 Blood Pressure 151/97 H 12/22/21 23:48 Pulse Oximetry 100 12/22/21 23:48 Oxygen Delivery Room Air 12/22/21 23:48 Temperature 98.1 F 12/22/21 23:48 Pulse Rate 103 H 12/22/21 23:48 Respiratory Rate 16 12/22/21 23:48 Blood Pressure 151/97 H 12/22/21 23:48 Pulse Oximetry 100 12/22/21 23:48 Oxygen Delivery Room Air 12/22/21 23:48 Lab Data Labs: Lab Results 12/22/21 12/23/21 Range/Units 23:54 00:45 POC Capillary Glucose 143 H (65-105) mg/dl Urine Color Yellow (Yellow) Urine Appearance Clear (Clear) Urine pH 6.0 (5.0-9.0) Ur Specific [place] 1.020 (1.001-1.035) Urine Protein
[2021-12-23] MEDS: NITROFURANTOIN MONOHYD MACROCR 100 MG CAP PO (01:01)
[2021-12-23 01:04] VITALS: BP 124/86; PULSE 95; RESP 18; O2SAT 100
== END 2021-12-23 01:05 | disposition home or self-care (01) ==
PROVIDERS: Emergency Provider Emergency Medicine; PCP Internal Medicine
DX: N39.0 Urinary tract infection, site not specified (principal); E10.9 Type 1 diabetes mellitus without complications; E78.00 Pure hypercholesterolemia, unspecified; Z79.4 Long term (current) use of insulin
CPT/HCPCS: 81001; 81025; 82948; 99283; A9270

== ENCOUNTER 2022-03-31 07:00 | Emergency (ER) | payer OTHER, SELFPAY ==
[2022-03-31 07:07] VITALS: BP 124/83; PULSE 102; RESP 18; TEMP 36.3; O2SAT 100
--- NOTE | 2022-03-31 07:40 | ED.GENADULT ---
HPI - General Adult General Chief complaint: Urogenital-Female Stated complaint: decreased urination Time Seen by Provider: 03/31/22 07:03 History of Present Illness HPI narrative: 31-year-old female with history of insulin-dependent diabetes presented to the emergency department for evaluation of dehydration. Patient states she has been traveling and noticed that she had decreased urine production. Patient stopped at a prompt care while traveling and was told that she was dehydrated and needed to present to the hospital for rehydration. Patient denies any nausea vomiting diarrhea. Patient denies any chest pain or shortness of breath. States states that she has been drinking water but perhaps not as much as she usually does. Patient states her blood sugars have been running about 180. Patient does have a Dexcom and her current blood sugar is 216. Related Data Home Medications Medication Instructions Recorded Confirmed insulin lispro 100 unit/mL 2 unit continuous subcutaneous 12/21/19 01/28/21 subcutaneous solution infusion DIRECTED pravastatin 80 mg tablet 80 mg PO DAILY 12/21/19 01/28/21 Allergies Allergy/AdvReac Type Severity Reaction Status Date / Time Penicillins Allergy Itching Verified 03/31/22 07:20 Review of Systems Review of Systems: CONSTITUTIONAL: Denies fever, chills, or sweats. EYES: Denies visual changes, redness, or discharge. ENT: Denies rhinorrhea, congestion, sore throat, or otalgia. CARDIOVASCULAR: Denies chest pain, palpitations, or edema. RESPIRATORY: Denies cough or dyspnea. GASTROINTESTINAL: Denies abdominal pain, nausea, vomiting, or diarrhea. GENITOURINARY: Denies dysuria or hematuria. Decreased urine production. SKIN: Denies rash or itching. MUSCULOSKELETAL: Denies back pain, joint pain, or myalgia. NEUROLOGIC: Denies headache, numbness, or weakness. PMFSH Past Medical History Medical History Hypercholesterolemia Type 1 diabetes Social History Social History (Updated 12/23/21 @ 00:53 by Dung Reynolds DO) Smoking status: Never smoker Gender identity (if verbalized by the patient): Female Exam Narrative: APPEARANCE: Well appearing, no pain, no distress, well-nourished. HEAD: normocephalic, atraumatic. EYES: PERRLA/EOMI, conjunctivae clear. NOSE: Normal no drainage NECK: Supple. No adenopathy, no masses. RESPIRATORY: Airway patent, respirations nonlabored. Clear to auscultation bilaterally, no rales, rhonchi, wheezing. CARDIOVASCULAR: Regular rate and rhythm without murmurs rubs or gallops. ABDOMINAL: Soft, nontender, nondistended, normal bowel sounds MUSCULOSKELETAL: Moves all extremities. Strength/ROM intact, No edema, No calf tenderness. NEURO: Alert. Cranial nerves II through XII intact. Grossly intact SKIN: Warm, dry. Normal Color Course Course Emergency Course: Patient does have mild VARGAS. She was treated with 2 L of normal saline. Patient denies any symptoms of dysuria. Urine culture was ordered. Patient was encouraged of close follow-up with her primary care physician. All questions concerns were addressed patient was well-appearing at time of discharge. Vital Signs Vital signs: Vital Signs Temperature 97.3 F L 03/31/22 07:07 Pulse Rate 102 H 03/31/22 07:07 Respiratory Rate 18 03/31/22 07:07 Blood Pressure 124/83 03/31/22 07:07 Pulse Oximetry 100 03/31/22 07:07 Oxygen Delivery Room Air 03/31/22 07:07 Temperature 97.3 F L 03/31/22 07:07 Pulse Rate 96 03/31/22 08:46 Respiratory Rate 18 03/31/22 08:46 Blood Pressure 152/95 H 03/31/22 08:46 Pulse Oximetry 100 03/31/22 08:46 Oxygen Delivery Room Air 03/31/22 07:07 Medical Decision Making Vital Signs Vital Signs: Vital Signs Temperature 97.3 F L 03/31/22 07:07 Pulse Rate 102 H 03/31/22 07:07 Respiratory Rate 18 03/31/22 07:07 Blood Pressure 124/83 03/31/22 07:07 Pulse Oximetry 100 10
[2022-03-31 07:59] LABS: Basophils Absolute Auto 0.1 K/mm3 (0.0-0.1); Basophils Percent Auto 0.5 % (0.2-1.2); Eosinophils Absolute Auto 0.2 K/mm3 (0-0.3); Hematocrit 34.7 % (37.0-47.0); Hemoglobin 11.7 g/dL (12.0-15.0); Immature Granulocyte Absolute 0.03 K/mm3 (0.00-0.031); Immature Granulocyte Percent A 0.3 % (0-0.5); Lymphocytes Absolute Auto 5.42 K/mm3 (0.9-3.2); Mean Corpuscular HGB Conc 33.7 g/dl (32-36); Mean Corpuscular Volume 85.9 fl (80-100); Mean Platelet Volume 10.5 fl (7.4-10.4); Monocytes Percent Auto 9.3 % (2.6-8.5); Neutrophils Absolute Auto 4.3 K/mm3 (1.3-6.7); Neutrophils Percent Auto 38.9 % (45.5-73.1); Platelet Count Result 333 k/mm3 (150-375); Red Blood Count 4.04 M/mm3 (4.2-5.4); Red Cell Distribution Width 12.1 % (11.5-14.5); White Blood Count 11.1 K/mm3 (4.5-10.0)
[2022-03-31 08:02] LABS: Add Urine Microscopic? YES; Appearance Urine Cloudy (Clear); Bilirubin Urine Negative (Negative); Blood Urine 1+ (Negative); Color Urine Yellow (Yellow); Glucose Urine UA 2+ mg/dL (Negative); Ketones Urine Negative (Negative); Leukocyte Esterase Ur Trace LEU/UL (Negative); Nitrate Urine Negative (Negative); Protein Urine 3+ mg/dL (Negative); Specific Grav Ur 1.015 (1.001-1.035); Squamous Epithelial Cell Urine Few /hpf (Few); Urobilinogen Urine Negative mg/dL (<2.0)
[2022-03-31 08:16] LABS: Alanine Aminotransferase 14 U/L (6-35); Albumin Level 3.8 g/dL (3.5-5.1); Alkaline Phosphatase 97 U/L (38-126); Anion Gap 12 mmol/L (8-16); Aspartate Amino Transferase 18 U/L (14-36); Bilirubin,Total 0.2 mg/dL (0.2-1.3); Blood Urea Nitrogen 26 mg/dL (7-17); Calcium 8.9 mg/dL (8.4-10.2); Carbon Dioxide 27 mmol/L (22-30); Chloride 103 mmol/L (98-107); Estimated CRCL calculation 54 ml/min; Estimated Glomerular Filt Rate 54; Glucose 216 mg/dL (65-110); Potassium 3.9 mmol/L (3.4-5.0); Sodium 142 mmol/L (137-145)
[2022-03-31] MEDS: SODIUM CHLORIDE 0.9% IV 1,000 ML 999 ML IV CONT ×2 (08:45→08:50)
[2022-03-31 08:46] VITALS: BP 152/95; PULSE 96; RESP 18; O2SAT 100
[2022-03-31 10:59] VITALS: BP 146/76; PULSE 90; RESP 18; O2SAT 100
== END 2022-03-31 11:02 | disposition home or self-care (01) ==
PROVIDERS: Emergency Provider Emergency Medicine; PCP Internal Medicine
DX: E86.0 Dehydration (principal); E10.9 Type 1 diabetes mellitus without complications; E78.00 Pure hypercholesterolemia, unspecified; Z79.4 Long term (current) use of insulin
CPT/HCPCS: 36415; 80053; 81001; 81025; 85025; 96360; 99283; J7030

== ENCOUNTER 2022-07-20 14:15 | Emergency (ER) | payer BC, SELFPAY ==
--- NOTE | 2022-07-20 14:23 | ED.FEMALEGU ---
HPI - Female Genitourinary General Chief complaint: Urogenital-Female Stated complaint: uti Time Seen by Provider: 07/20/22 14:44 Source: patient and RN notes reviewed Mode of arrival: ambulatory Limitations: no limitations History of Present Illness HPI Narrative: 32-year-old female presents with concern for urine frequency, cloudy urine, left flank pain for 2 weeks. Reports slight burning when she urinates but nothing too painful. She denies abdominal pain, nausea, vaginal itching. Reports slightly cloudy vaginal discharge. She denies fever, aches. Reports chills and sweats. Patient reports she usually gets a yeast infection which she takes antibiotic MD elicited complaint: UTI Related Data Home Medications Medication Instructions Recorded Confirmed insulin lispro 100 unit/mL 2 unit continuous subcutaneous 12/21/19 01/28/21 subcutaneous solution infusion DIRECTED dapagliflozin 10 mg tablet 10 mg PO DAILY 07/20/22 07/20/22 ([facility]) metformin 500 mg tablet,extended 500 mg PO DAILY 07/20/22 07/20/22 release 24hr Allergies Allergy/AdvReac Type Severity Reaction Status Date / Time Penicillins Allergy Itching Verified 07/20/22 14:35 Review of Systems Review of Systems: CONSTITUTIONAL: Denies malaise, fever. Reports chills, sweats CARDIOVASCULAR: Denies chest pain, palpitations, or edema. RESPIRATORY: Denies cough or dyspnea. GASTROINTESTINAL: Denies abdominal pain, nausea, vomiting, diarrhea GENITOURINARY: Reports frequency, cloudy urine, mild dysuria. Denies Urgency, suprapubic pressure. Reports left flank pain. Denies hematuria. SKIN: Denies rash or itching. MUSCULOSKELETAL: Denies back pain or myalgia. All systems reviewed & are unremarkable except as noted in HPI and below PMFSH Past Medical History Medical History Hypercholesterolemia Type 1 diabetes Social History Social History (Updated 12/23/21 @ 00:53 by Dung Reynolds DO) Smoking status: Never smoker Gender identity (if verbalized by the patient): Female Comments At time of signature, agree with nursing past medical, surgical, social and family history. There is no relevant family history pertinent to the presenting complaint Exam Narrative: GENERAL: Well-appearing, well-nourished, and in no acute distress. HEAD: Normocephalic. EYES: PERRLA, conjunctivae clear. NECK: Supple. No lymphadenopathy CHEST: Clear to auscultation. No respiratory distress. HEART: Regular rate and rhythm. ABDOMEN: Soft, nontender upon palpation, nondistended, normal active bowel sounds, no palpable or pulsatile masses, no guarding. No CVA tenderness SKIN: Warm, dry, no rash. NEURO: Alert and oriented x3. PSYCH: Normal mood and affect Course Course Emergency Course: Patient is aware of diagnosis, understands and agrees to treatment plan. Anticipatory guidance given. Patient agrees to follow-up as directed and is aware of reasons to seek care at the emergency department. Portions of this record may have been created with voice recognition software Level of Care: Express Care Visit Vital Signs Vital signs: Reviewed. MDM - Female Genitourinary MDM Narrative Medical decision making narrative: Exam findings and UA show no acute concerns or changes; patient is non-toxic appearing and is in no distress. Patient is appropriate for outpatient treatment and follow-up. Differential Diagnosis Differential diagnosis: Likely urinary tract infection and cystitis Critical Care Time Critical Care Time Critical Care Time: No Discharge Plan Discharge Clinical Impression: Symptoms of urinary tract infection Patient Disposition: Home, Self-Care Condition: Stable Instructions: Antibiotic Form, Urinary Tract Infection in Women (ED) Additional Instructions: We will send a urine culture to the lab; if the culture identifies an organism that the prescribed antibiotic will not treat,
[2022-07-20 14:32] VITALS: BP 158/96; PULSE 96; RESP 16; TEMP 34.8; O2SAT 100
[2022-07-20 14:53] VITALS: TEMP 35.7
== END 2022-07-20 14:57 | disposition home or self-care (01) ==
PROVIDERS: Emergency Provider Nurse Practitioner; PCP Internal Medicine
DX: R35.0 Frequency of micturition (principal); R10.9 Unspecified abdominal pain; R30.0 Dysuria; E78.00 Pure hypercholesterolemia, unspecified; E11.9 Type 2 diabetes mellitus without complications
CPT/HCPCS: 81003; 87086; 87088; 99213; G0463

== ENCOUNTER 2023-05-27 07:03 | Emergency (ER) | payer BC, SELFPAY ==
[2023-05-27] VITALS (23 sets, daily range): BP systolic 125–151; BP diastolic 80–94; PULSE 100; RESP 18; O2SAT 100
--- NOTE | 2023-05-27 07:51 | ED.NAVMDI ---
HPI - Nausea/Vomiting/Diarrhea General Chief complaint: Nausea/Vomiting/Diarrhea Stated complaint: N/V/D, chills Time Seen by Provider: 05/27/23 13:01 History of Present Illness HPI Narrative: patient is a 33-year-old female who presents ER with nausea vomiting and diarrhea. It began yesterday afternoon. No known sick contacts. No blood in stool or emesis. No alleviating factors. Associated body aches and shaking chills. Patient is diabetic. She has been taking her insulin. Patient reports the diarrea and vomiting will occur at the same time and approximately 10 times a day. Related Data Home Medications Medication Instructions Recorded Confirmed insulin lispro 100 unit/mL 2 unit continuous subcutaneous 12/21/19 01/28/21 subcutaneous solution infusion DIRECTED dapagliflozin propanediol 10 mg 10 mg PO DAILY 07/20/22 07/20/22 tablet (Farxiga) metformin 500 mg tablet,extended 500 mg PO DAILY 07/20/22 07/20/22 release 24hr (osmotic) Allergies Allergy/AdvReac Type Severity Reaction Status Date / Time Penicillins Allergy Itching Verified 05/27/23 08:00 Review of Systems Review of Systems: All systems reviewed & are unremarkable except as noted in HPI and below Constitutional: Constitutional: Reports chills, Reports fatigue and Denies fever(s) ENT: Reports system reviewed and no additional complaints, except as documented Cardiovascular: Cardiovascular: Reports no additional cardiovascular complaints Respiratory: Respiratory: Reports no additional respiratory complaints Gastrointestinal: Gastrointestinal: Denies abdominal pain, Reports diarrhea, Reports nausea and Reports vomiting Genitourinary: Genitourinary: Reports no additional female genitourinary complaints Musculoskeletal: Musculoskeletal: Reports myalgias, Denies arthralgias and Denies joint swelling PMFSH Past Medical History Medical History (Updated 05/27/23 @ 12:39 by Paulo Guevara MD) Hypercholesterolemia Type 1 diabetes Surgical History Surgical History (Updated 05/27/23 @ 07:53 by Paulo Guevara MD) No pertinent past surgical history Social History Social History (Updated 12/23/21 @ 00:53 by Dung Reynolds DO) Smoking status: Never smoker Gender identity (if verbalized by the patient): Female Exam Narrative: GENERAL: Uncomfortable appearing and shaking, well-nourished, and in no acute distress. HEAD: Normocephalic, atraumatic. EYES: PERRL and EOMI. ENT: Mucous membranes moist. CHEST: Clear to auscultation. No respiratory distress. HEART: Regular rate and rhythm. Normal peripheral pulses. ABDOMEN: Soft, nontender, nondistended. EXTREMITIES: Normal range of motion. No edema. NEURO: Alert and oriented x3. PSYCH: Normal mood and affect. Course Course Emergency Course: Patient resting comfortably. Tolerating oral fluids. Discussed elevated kidney function and desire to repeat labs after 2 L of IV fluid. Patient declines. Her blood sugar has normalized. There is no dka. Urinalysis with many white blood cells but no bacteria. will place on 3 days of antibiotic. Vital Signs Vital signs: Vital Signs Pulse Rate 100 05/27/23 08:14 Respiratory Rate 18 05/27/23 08:14 Blood Pressure 127/86 05/27/23 08:14 Pulse Oximetry 100 05/27/23 08:14 Pulse Rate 100 05/27/23 08:14 Respiratory Rate 18 05/27/23 08:14 Blood Pressure 125/80 05/27/23 12:16 Pulse Oximetry 100 05/27/23 11:16 MDM - Nausea/Vomiting/Diarrhea Lab Data 05/27/23 08:28 05/27/23 08:28 Labs: Lab Results 05/27/23 05/27/23 05/27/23 Range/Units 08:28 09:27 09:33 WBC 9.9 (4.5-10.0) K/mm3 RBC 4.01 L (4.2-5.4) M/mm3 Hgb 11.2 L (12.0-15.0) g/dL Hct 35.3 L (37.0-47.0) % MCV 88.0 (80-100) fl MCH 27.9 (26-34) pg MCHC 31.7 L (32-36) g/dl RDW 12.4 (11.5-14.5) % Plt Count 455 H (150-375) k/mm3 MPV 10.5 H (7.4-
[2023-05-27] MEDS: SODIUM CHLORIDE 0.9% IV 1,000 ML 999 ML IV CONT ×2 (08:03→09:06)
[2023-05-27] MEDS: ONDANSETRON INJ 4 MG/2 ML VIAL IV PUSH (08:04)
[2023-05-27 08:34] LABS: Basophils Absolute Auto 0.1 K/mm3 (0.0-0.1); Basophils Percent Auto 0.5 % (0.2-1.2); Eosinophils Percent Auto 0.1 % (0-4.4); Hematocrit 35.3 % (37.0-47.0); Hemoglobin 11.2 g/dL (12.0-15.0); Immature Granulocyte Absolute 0.02 K/mm3 (0.00-0.031); Immature Granulocyte Percent A 0.2 % (0-0.5); Lymphocytes Absolute Auto 2.01 K/mm3 (0.9-3.2); Lymphocytes Percent Auto 20.3 % (18.3-44.2); Mean Corpuscular HGB Conc 31.7 g/dl (32-36); Mean Corpuscular Hemoglobin 27.9 pg (26-34); Mean Platelet Volume 10.5 fl (7.4-10.4); Monocytes Absolute Auto 0.6 K/mm3 (0.1-0.6); Monocytes Percent Auto 5.8 % (2.6-8.5); Neutrophils Absolute Auto 7.3 K/mm3 (1.3-6.7); Neutrophils Percent Auto 73.1 % (45.5-73.1); Platelet Count Result 455 k/mm3 (150-375); Red Blood Count 4.01 M/mm3 (4.2-5.4); Red Cell Distribution Width 12.4 % (11.5-14.5); White Blood Count 9.9 K/mm3 (4.5-10.0)
[2023-05-27 08:45] LABS: Alanine Aminotransferase 39 U/L (6-35); Albumin Level 4.3 g/dL (3.5-5.1); Alkaline Phosphatase 100 U/L (38-126); Anion Gap 7 mmol/L (8-16); Aspartate Amino Transferase 18 U/L (14-36); Bilirubin,Total 0.5 mg/dL (0.2-1.3); Blood Urea Nitrogen 27 mg/dL (7-17); Calcium 10.3 mg/dL (8.4-10.2); Carbon Dioxide 33 mmol/L (22-30); Chloride 106 mmol/L (98-107); Estimated CRCL calculation 38 ml/min; Estimated Glomerular Filt Rate 40; Glucose 355 mg/dL (65-110); Lipase 46 U/L (23-300); Sodium 146 mmol/L (137-145)
[2023-05-27 09:11] LABS: Influenza A QL RT-PCR Negative (Negative); Influenza B QL RT-PCR Negative (Negative); SARS-CoV-2 RNA PCR Negative (Negative)
[2023-05-27 09:42] LABS: Appearance Urine Clear (Clear); Bacteria Urine None Seen /hpf; Bilirubin Urine Negative (Negative); Blood Urine 1+ (Negative); Color Urine Yellow (Yellow); Glucose Urine UA 3+ mg/dL (Negative); Ketones Urine Negative (Negative); Leukocyte Esterase Ur Negative LEU/UL (Negative); Need Manual Microscopic Reviewed; Nitrate Urine Negative (Negative); Non Pathogenic Casts 0-2; Protein Urine 4+ mg/dL (Negative); Specific Grav Ur 1.028 (1.001-1.035); Squamous Epithelial Cell Urine None seen /hpf (Few); Urobilinogen Urine 0.2 mg/dL (<2.0); WBC Urine 21-50 /hpf; pH Urine 6.5 (5.0-9.0)
[2023-05-27 09:45] LABS: Base Excess ABG 1.6 mEq/l (+/-2.0); Carboxyhemoglobin 0.5 % THb (0-2.0); Fractional Inspired Oxygen 21 %; HCO3 ABG 26.4 mEq/l (22.0-26.0); Methemoglobin ABG 0.2 %THb (0-1.5); Oxygen Content ABG 16.2 %vol (16.0-22.0); Oxygen Saturation ABG 97.1 % (95.0-100.0); Oxyhemoglobin 95.6 % THb (90.0-100.0); PCO2 ABG 42.1 mmHg (35.0-45.0); PO2 ABG 91.3 mmHg (80.0-100.0); PO2 FiO2 Ratio Arterial Blood 4.35 %; Reduced Hemoglobin 3.7 %THb (0-5.0); pH ABG 7.415 (7.350-7.450)
[2023-05-27 09:46] LABS: Modified Allen's Test Pass; Site Drawn RIGHT RADIAL
[2023-05-27 10:03] LABS: Add Urine Microscopic? YES
== END 2023-05-27 13:18 | disposition home or self-care (01) ==
PROVIDERS: Emergency Provider Emergency Medicine; PCP Internal Medicine
DX: E86.0 Dehydration (principal); R11.2 Nausea with vomiting, unspecified; N39.0 Urinary tract infection, site not specified; E10.9 Type 1 diabetes mellitus without complications; Z20.822 Contact with and (suspected) exposure to COVID-19
CPT/HCPCS: 36415; 36600; 80053; 81001; 81025; 82375; 82805; 83050; 83690; 85025; 87086; 87636; 96361; 96374; 99284; J2405; J7030

== ENCOUNTER 2024-05-18 10:29 | Emergency (ER) | payer MEDICAID, SELFPAY ==
[2024-05-18] VITALS (22 sets, daily range): BP systolic 71–133; BP diastolic 52–96; PULSE 99–125; RESP 9–31; TEMP 36.6; O2SAT 98–100
--- NOTE | ~2024-05-18 | XR_ITS ---
EXAMINATION: XR chest 2V DATE: 05/18/2024 13:08 INDICATION: Vomiting, dizziness and weakness TECHNIQUE: AP view of the chest was obtained COMPARISON: None FINDINGS: The lungs are clear with no focal airspace opacities, pulmonary edema, pleural effusion or pneumothor ax. The cardiomediastinal silhouette is normal. Visualized bones and soft tissues are unremarkable. IMPRESSION: 1. Normal chest radiograph. Reviewed, dictated and finalized at location [facility] [employer] IMPRESSION: 1. Normal chest radiograph.
[2024-05-18 10:39] LABS: Glucose Point of Care 190 mg/dl (65-105)
[2024-05-18 11:05] LABS: Basophils Absolute Auto 0.1 K/mm3 (0.0-0.1); Basophils Percent Auto 0.8 % (0.2-1.2); Eosinophils Absolute Auto 0.1 K/mm3 (0-0.3); Eosinophils Percent Auto 1.2 % (0-4.4); Hematocrit 44.1 % (37.0-47.0); Immature Granulocyte Absolute 0.18 K/mm3 (0.00-0.031); Immature Granulocyte Percent A 1.8 % (0-0.5); Lymphocytes Absolute Auto 5.67 K/mm3 (0.9-3.2); Lymphocytes Percent Auto 56.6 % (18.3-44.2); Mean Corpuscular Hemoglobin 29.5 pg (26-34); Mean Corpuscular Volume 86.6 fl (80-100); Mean Platelet Volume 10.6 fl (7.4-10.4); Monocytes Absolute Auto 0.6 K/mm3 (0.1-0.6); Monocytes Percent Auto 5.5 % (2.6-8.5); Neutrophils Absolute Auto 3.4 K/mm3 (1.3-6.7); Neutrophils Percent Auto 34.1 % (45.5-73.1); Platelet Count Result 639 k/mm3 (150-375); Red Blood Count 5.09 M/mm3 (4.2-5.4)
[2024-05-18 11:16] LABS: Alanine Aminotransferase 14 U/L (6-35); Albumin Level 4.8 g/dL (3.5-5.1); Alkaline Phosphatase 71 U/L (38-126); Anion Gap 12 mmol/L (4-12); Aspartate Amino Transferase 22 U/L (14-36); Bilirubin,Total 0.6 mg/dL (0.2-1.3); Blood Urea Nitrogen 27 mg/dL (7-17); Calcium 10.3 mg/dL (8.4-10.2); Carbon Dioxide 32 mmol/L (22-30); Chloride 95 mmol/L (98-107); Estimated CRCL calculation 30 ml/min; Estimated Glomerular Filt Rate 31; Glucose 181 mg/dL (65-110); Magnesium 2.4 mg/dL (1.6-2.3); Phosphorus 4.1 mg/dL (2.5-4.5); Potassium 3.3 mmol/L (3.4-5.0); Sodium 139 mmol/L (137-145)
[2024-05-18 11:17] LABS: Beta-Hydroxybutyrate/Acetoacetate 0.16 mmol/L (0.02-0.27)
[2024-05-18 12:00] LABS: Atypical Lymphocytes Present; Platelet Estimate Increased (Adequate); Schistocytes None Seen
--- NOTE | 2024-05-18 12:25 | ED.GENADULT ---
HPI - General Adult General Chief complaint: Recheck/Abnormal Lab/Rx <Anum Edmonds APRN - Last Filed: 05/18/24 12:28> Stated complaint: I think im having DKA x2 weeks <Anum Edmonds APRN - Last Filed: 05/18/24 12:28> Time Seen by Provider: 05/18/24 12:20 <Anum Edmonds APRN - Last Filed: 05/18/24 12:28> Focused HPI: Patient is a 35-year-old female who presents to the ER with concerns that she is in DKA. She reports she has been a diabetic for the last 22 years. Patient reports her symptoms started approximately 1 week ago. She reports she is dizzy and can't stand. patient reports she checks her blood sugars at home and they have been ranging between 190 and 240. She takes spironolactone, Lantus, Humalog, Fartiga at home. Patient reports she has been vomiting, but is able to keep fluids down. She denies chest pain, shortness of breath, and recent fevers. GENERAL: Well-appearing, well-nourished, and in mild distress d/t agitation. HEAD: Normocephalic, atraumatic. CHEST: Clear to auscultation. ?No respiratory distress. HEART: Tachycardia and regular rhythm.? NEURO: ?Alert and oriented x3. Patient screened in triage and initial orders placed.? ?Additional care and disposition to be based upon?diagnostic testing and treatment. <Anum Edmonds APRN - Last Filed: 05/18/24 12:28> Source: patient and family <Vandana Castro MD - Last Filed: 05/18/24 21:50> Mode of arrival: ambulatory <Vandana Castro MD - Last Filed: 05/18/24 21:50> Limitations: no limitations <Vandana Castro MD - Last Filed: 05/18/24 21:50> History of Present Illness HPI narrative: Concur with the above with the following additions/corrections: EMR lists patient has type 1 diabetes mellitus but she reports she was diagnosed with type 2 diabetes mellitus 22 years ago. Patient was having nausea which is better now and she was having near daily vomiting although this has resolved in the last episode of emesis she had was 3 days ago. Her primary care physician had prescribed her Zofran which she has been using but not particularly working. She does note that after she was vomiting each day she would experience burning sensation with associated throat pain however this has resolved. She does not have any appetite and has as result had decreased p.o. intake. Her father notes that she has lost weight he notes that her blood sugars have been elevated at home ranging in the mid 200s. Patient notes that she has been dizzy particularly position changes such as standing up. She has also been very fatigued with generalized weakness. Her mother had to help her bathe yesterday. Patient states she was seen in March at [facility] in [place] with similar and was diagnosed with DKA but only received IV normal saline (no insulin and no admission) and was discharged (?). She denies any rash or cough. No abdominal pain or headache. LMP 3 days ago and normal (lasted 3 days). Patient takes long-acting Lantus q.h.s. 15 and short-acting Humalog t.i.d. with meals 20 units. Also takes Farxiga/dapagliflozen Primary care physician Dr Rodrgiuez (spelling?) Chet through [facility] outpatient and catering assistant Dr Sue Arevalo. She states that her diabetes medications prescribed by her primary care physician And have been stable with no recent changes. she also endorses being compliant with them. She has an upcoming appointment with her catering assistant June 15. Her last HA1C was between 7 and 8%. Other medication she takes at home not included in above includes ferrous sulfate. <Vandana Castro MD - Last Filed: 05/18/24 21:50> Related Data Home medications: Home Medications Medication Instructions Recorded Confirmed insulin lispro 100 unit/mL 2 unit continuous subcutaneous 12/21/19 01/28/21 subcutaneous solution infusion DIRECTED dapagliflozin propanediol 10 mg 10 mg PO DAILY 07/20/22 07/20/22 tablet (Farxiga) metformin 500 mg tablet,extended 500 mg PO DAILY 07/20/22 07/20/22 release 24hr (osmotic) <Anum Edmonds APRN - Last Filed: 05/18/24 12:28> Allergies/adverse reactions: Allergies Allergy/AdvReac Type Severity Reaction Status Date / Time Penicillins Allergy Itching Verified 05/27/23 08:00 <Anum Edmonds APRN - Last Filed: 05/18/24 12:28> [facility] Past Medical History Medical History: Medical History Hypercholesterolemia Type 1 diabetes Type 2 diabetes mellitus Diagnosed 01/16/2002 <Anum Edmonds APRN - Last Filed: 05/18/24 12:28> Surgical History Surgical History: Surgical History (Updated 05/27/23 @ 07:53 by Paulo Guevara MD) No pertinent past surgical history <Anum Edmonds APRN - Last Filed: 05/18/24 12:28> Social History Social History: Social History Smoking status: Never smoker Substance use type: marijuana Other substance usage details: regular/semi-regular Occupation/Education: occupation 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 HEAD: Normocephalic, atraumatic. EYES: Non injected, non icteric ENT: Nares clear, no rhinorrhea or epistaxis. Tacky mucous membranes. NECK: Supple. CHEST: Speaking in full sentences. No respiratory distress. HEART: Tachycardic rate and rhythm. . ABDOMEN: Soft, nondistended. EXTREMITIES: Normal range of motion. No lower extremity edema. SKIN: Warm, dry, no rash. NEURO: No focal deficits. Alert and oriented x3. PSYCH: Normal mood and affect. <Vandana Castro MD - Last Filed: 05/18/24 21:50> Course Vital Signs Vital signs: Vital Signs Temperature 97.9 F 05/18/24 10:34 Pulse Rate 115 H 05/18/24 10:34 Respiratory Rate 18 05/18/24 10:34 Blood Pressure 92/62 L 05/18/24 10:34 Pulse Oximetry 100 05/18/24 10:34 Oxygen Delivery Room Air 05/18/24 10:34 Temperature 97.9 F 05/18/24 10:34 Pulse Rate 99 05/18/24 20:24 Respiratory Rate 20 05/18/24 20:24 Blood Pressure 121/78 05/18/24 20:24 Pulse Oximetry 100 05/18/24 20:24 Oxygen Delivery Room Air 05/18/24 10:34 <Anum Edmonds APRN - Last Filed: 05/18/24 12:28> Vital Signs Temperature 97.9 F 05/18/24 10:34 Pulse Rate 115 H 05/18/24 10:34 Respiratory Rate 18 05/18/24 10:34 Blood Pressure 92/62 L 05/18/24 10:34 Pulse Oximetry 100 05/18/24 10:34 Oxygen Delivery Room Air 05/18/24 10:34 Temperature 97.9 F 05/18/24 10:34 Pulse Rate 99 05/18/24 20:24 Respiratory Rate 20 05/18/24 20:24 Blood Pressure 121/78 05/18/24 20:24 Pulse Oximetry 100 05/18/24 20:24 Oxygen Delivery Room Air 05/18/24 10:34 <Vandana Castro MD - Last Filed: 05/18/24 21:50> Medical Decision Making MDM Narrative Medical decision making narrative: Patient presents with concerned that she is in DKA. She has history of diabetes mellitus and is insulin-dependent as well as on Farxiga and reports being compliant but still having elevated blood sugars at home. she was having persistent nausea vomiting though this resolved few days ago. Again although she has been complaining dizziness and weakness and increased fatigue as well as anorexic/ without an appetite and subsequent decreased p.o. intake. In the emergency department she is afebrile with vital signs notable for hypotension and tachycardia although the hypotension improved. Point of care glucose in triage 190 mg/dL. test negative. Patient has hyper glycemia without anion gap and without acidosis. She has glucosuria and proteinuria but without ketones. There is also 4+ bacteria and moderate amount of white blood cells. Although patient denies being symptomatic ( no dysuria, hematuria, urgency, frequency, or feeling of incomplete voiding), we did discuss that it would be reasonable to try to treat patient will be given 1st dose of antibiotic in the emergency department. In fact, given that she has been having nausea and vomiting, we will treated this a pyelonephritis with a slightly longer duration of antibiotic. Patient's creatinine is elevated. Per review of EMR it has been up trending thus it is unclear whether this represents VARGAS on CKD though this is the presumption at this time. Mild hypokalemia Which will be repleted orally. patient's hemoglobin A1c is greater than 8 % suggesting poorly controlled diabetes mellitus. Her lactic acid is elevated. Patient remains persistently tachycardic after 2 L of IV fluids. given this, will also add TSH and D-dimer while obtaining repeat lactic acid given initial was elevated. Her orthostatic vital signs continue show a drop in blood pressure although is reported that she is not asymptomatic. When patient was reassessed, she states that she is feeling better. Her father is concerned she has been losing weight and seems to keep having these cycles of being symptomatic. Will patient's nausea and vomiting have been improved over the last 3 days, she does endorse using marijuana quite frequently, nearly daily previously although not in the past week by report. Although will not add this diagnosis to her problem list today, we did discuss the possibility that her symptoms recently might possibly represent cannabinoid hyperemesis syndrome. This is supported by: Age less than 50 years old, reported weight loss, though patient has not had further work up such as endoscopy, etc to rule out other etiologies. Patient is advised and encouraged to attempt cannabis cessation for resolution of symptoms moving forward. I did discuss with patient that a case could be made for an observation admission for further IV hydration and monitoring given that her ortho stats were still concerning and she did have evidence of acute kidney injury and she was still mildly tachycardic. however, patient was prefer to be discharged home and this is reasonable at this time. Lactic acidosis has resolved and D-dimer and TSH are normal. Her heart rate has improved in although she has border tachycardic. advised to follow-up with primary care physician for a repeat to assess her kidney function and advised to keep her upcoming appointment with her catering assistant that is currently scheduled for June 15, 2024 given that her diabetes appears to be poorly controlled despite being compliant with her current regimen. <Vandana Castro MD - Last Filed: 05/18/24 21:50> Differential Diagnosis Differential Diagnosis: DKA, HHS, hyperglycemia; euglucemic ketoacidosis; Infection (PNA, UTI/pyelo), gastroenteritis; dehydration; drug induced nausea and vomiting; ; medication side effect; acute viral syndrome; mono <Vandana Castro MD - Last Filed: 05/18/24 21:50> Vital Signs Vital Signs: Vital Signs Temperature 97.9 F 05/18/24 10:34 Pulse Rate 115 H 05/18/24 10:34 Respiratory Rate 18 05/18/24 10:34 Blood Pressure 92/62 L 05/18/24 10:34 Pulse Oximetry 100 05/18/24 10:34 Oxygen Delivery Room Air 05/18/24 10:34 Temperature 97.9 F 05/18/24 10:34 Pulse Rate 99 05/18/24 20:24 Respiratory Rate 20 05/18/24 20:24 Blood Pressure 121/78 05/18/24 20:24 Pulse Oximetry 100 05/18/24 20:24 Oxygen Delivery Room Air 05/18/24 10:34 <Anum Edmonds APRN - Last Filed: 05/18/24 12:28> Vital Signs Temperature 97.9 F 05/18/24 10:34 Pulse Rate 115 H 05/18/24 10:34 Respiratory Rate 18 05/18/24 10:34 Blood Pressure 92/62 L 05/18/24 10:34 Pulse Oximetry 100 05/18/24 10:34 Oxygen Delivery Room Air 05/18/24 10:34 Temperature 97.9 F 05/18/24 10:34 Pulse Rate 99 05/18/24 20:24 Respiratory Rate 20 05/18/24 20:24 Blood Pressure 121/78 05/18/24 20:24 Pulse Oximetry 100 05/18/24 20:24 Oxygen Delivery Room Air 05/18/24 10:34 <Vandana Castro MD - Last Filed: 05/18/24 21:50> Lab Data Lab results reviewed: Yes I reviewed the patient's lab results. <Vandana Castro MD - Last Filed: 05/18/24 21:50> Lab results narrative: Thrombocytosis. Patient has had this previously not to the same degree. [place] screen negative. <Vandana Castro MD - Last Filed: 05/18/24 21:50> Result diagrams: 05/18/24 10:52 05/18/24 10:52 <Anum Stiven Edmonds, OUTPATIENT PROGRAM COORDINATOR - Last Filed: 05/18/24 12:28> Labs: Lab Results 05/18/24 05/18/24 05/18/24 Range/Units 10:37 10:52 12:39 WBC 10.0 (4.5-10.0) K/mm3 RBC 5.09 (4.2-5.4) M/mm3 Hgb 15.0 D (12.0-15.0) g/dL Hct 44.1 (37.0-47.0) % MCV 86.6 (80-100) fl MCH 29.5 (26-34) pg MCHC 34.0 (32-36) g/dl RDW 12.0 (11.5-14.5) % Plt Count 639 H (150-375) k/mm3 MPV 10.6 H (7.4-10.4) fl Immature Gran % (Auto) 1.8 H (0-0.5) % Neut % (Auto) 34.1 L (45.5-73.1) % Lymph % (Auto) 56.6 H (18.3-44.2) % [place] % (Auto) 5.5 (2.6-8.5) % Eos % (Auto) 1.2 (0-4.4) % Baso % (Auto) 0.8 (0.2-1.2) % Lymph # (Auto) 5.67 H (0.9-3.2) K/mm3 [place] # (Auto) 0.6 (0.1-0.6) K/mm3 Eos # (Auto) 0.1 (0-0.3) K/mm3 Baso # (Auto) 0.1 (0.0-0.1) K/mm3 Abs Immat Gran (auto) 0.18 H (0.00-0.031) K/mm3 Absolute Neuts (auto) 3.4 (1.3-6.7) K/mm3 Absolute Nucleated RBC 0.000 (0.0-0.012) K/mm3 Nucleated RBC % 0.0 (0.0-0.2) % Atypical Lymphocytes Present Platelet Estimate Increased (Adequate) Schistocytes None seen PT 12.8 (11.1-14.7) Seconds INR 0.9 APTT 24.1 (22.3-36.8) Seconds D-Dimer (<0.48) ug/mL Sodium 139 (137-145) mmol/L Potassium 3.3 L (3.4-5.0) mmol/L Chloride 95 L (98-107) mmol/L Carbon Dioxide 32 H (22-30) mmol/L Anion Gap 12 (4-12) mmol/L BUN 27 H (7-17) mg/dL Creatinine 2.20 H (0.7-1.0) mg/dL Estim Creat Clear Calc 30 ml/min Estimated GFR 31 L (59 - ) Glucose 181 H (65-110) mg/dL POC Capillary Glucose 190 H (65-105) mg/dl Hemoglobin A1c 8.3 H (<5.7) % Lactic Acid (0.7-2.0) mmol/L Calcium 10.3 H (8.4-10.2) mg/dL Phosphorus 4.1 (2.5-4.5) mg/dL Magnesium 2.4 H (1.6-2.3) mg/dL Total Bilirubin 0.6 (0.2-1.3) mg/dL AST 22 (14-36) U/L ALT 14 (6-35) U/L Alkaline Phosphatase 71 (38-126) U/L Troponin I 0.019 (0.000-0.034) ng/mL Total Protein 9.0 H (6.3-8.2) g/dL Albumin 4.8 (3.5-5.1) g/dL Lipase 36 (23-300) U/L Beta-Hydroxybutyrate/Acetoacetate 0.16 (0.02-0.27) mmol/L TSH 1.580 (0.465-4.680) uIU/mL Urine Color Yellow (Yellow) Urine Appearance Cloudy H (Clear) Urine pH 5.0 (5.0-9.0) Ur Specific [place] 1.027 (1.001-1.035) Urine Protein 3+ H (Negative) mg/dL Urine Glucose (UA) 3+ H (Negative) mg/dL Urine Ketones Negative (Negative) mg/dL Ur Blood (Man) Trace (Negative) Urine Nitrate Negative (Negative) Urine Bilirubin Negative (Negative) Urine Urobilinogen 0.2 (<2.0) mg/dL Add Ur Microanalysis Reviewed Leukocyte Esterase Rfl Negative (Negative) CHANG/UL Urine RBC 0-2 (0-2) /hpf Urine WBC 21-50 H (0-3) /hpf Ur Squamous Epith Cells Moderate (Few) /hpf Urine Bacteria 4+ H /hpf Urine Casts 11-20 POC Urine HCG, Qual (Negative) Urine Opiates Screen Negative (Negative) Urine Methadone Screen Negative (Negative) Ur Barbiturates Screen Negative (Negative) Ur Phencyclidine Scrn Negative (Negative) Ur Amphetamine Screen Negative (Negative) U Benzodiazepines Scrn Negative (Negative) Urine Cocaine Screen Negative (Negative) U Cannabinoids Screen Positive A (Negative) Monoscreen (Negative) Influenza A (RT-PCR) (Negative) Influenza B (RT-PCR) (Negative) RSV (RT-PCR) (Negative) SARS-CoV-2 RNA (RT-PCR) (Negative) 05/18/24 05/18/24 05/18/24 Range/Units 12:46 15:03 18:59 WBC (4.5-10.0) K/mm3 RBC (4.2-5.4) M/mm3 Hgb (12.0-15.0) g/dL Hct (37.0-47.0) % MCV (80-100) fl MCH (26-34) pg MCHC (32-36) g/dl RDW (11.5-14.5) % Plt Count (150-375) k/mm3 MPV (7.4-10.4) fl Immature Gran % (Auto) (0-0.5) % Neut % (Auto) (45.5-73.1) % Lymph % (Auto) (18.3-44.2) % [place] % (Auto) (2.6-8.5) % Eos % (Auto) (0-4.4) % Baso % (Auto) (0.2-1.2) % Lymph # (Auto) (0.9-3.2) K/mm3 [place] # (Auto) (0.1-0.6) K/mm3 Eos # (Auto) (0-0.3) K/mm3 Baso # (Auto) (0.0-0.1) K/mm3 Abs Immat Gran (auto) (0.00-0.031) K/mm3 Absolute Neuts (auto) (1.3-6.7) K/mm3 Absolute Nucleated RBC (0.0-0.012) K/mm3 Nucleated RBC % (0.0-0.2) % Atypical Lymphocytes Platelet Estimate (Adequate) Schistocytes PT (11.1-14.7) Seconds INR APTT (22.3-36.8) Seconds D-Dimer < 0.27 (<0.48) ug/mL Sodium (137-145) mmol/L Potassium (3.4-5.0) mmol/L Chloride (98-107) mmol/L Carbon Dioxide (22-30) mmol/L Anion Gap (4-12) mmol/L BUN (7-17) mg/dL Creatinine (0.7-1.0) mg/dL Estim Creat Clear Calc ml/min Estimated GFR (59 - ) Glucose (65-110) mg/dL POC Capillary Glucose (65-105) mg/dl Hemoglobin A1c (<5.7) % Lactic Acid 2.9 H 1.6 (0.7-2.0) mmol/L Calcium (8.4-10.2) mg/dL Phosphorus (2.5-4.5) mg/dL Magnesium (1.6-2.3) mg/dL Total Bilirubin (0.2-1.3) mg/dL AST (14-36) U/L ALT (6-35) U/L Alkaline Phosphatase (38-126) U/L Troponin I (0.000-0.034) ng/mL Total Protein (6.3-8.2) g/dL Albumin (3.5-5.1) g/dL Lipase (23-300) U/L Beta-Hydroxybutyrate/Acetoacetate (0.02-0.27) mmol/L TSH (0.465-4.680) uIU/mL Urine Color (Yellow) Urine Appearance (Clear) Urine pH (5.0-9.0) Ur Specific [place] (1.001-1.035) Urine Protein (Negative) mg/dL Urine Glucose (UA) (Negative) mg/dL Urine Ketones (Negative) mg/dL Ur Blood (Man) (Negative) Urine Nitrate (Negative) Urine Bilirubin (Negative) Urine Urobilinogen (<2.0) mg/dL Add Ur Microanalysis Leukocyte Esterase Rfl (Negative) CHANG/UL Urine RBC (0-2) /hpf Urine WBC (0-3) /hpf Ur Squamous Epith Cells (Few) /hpf Urine Bacteria /hpf Urine Casts POC Urine HCG, Qual Negative (Negative) Urine Opiates Screen (Negative) Urine Methadone Screen (Negative) Ur Barbiturates Screen (Negative) Ur Phencyclidine Scrn (Negative) Ur Amphetamine Screen (Negative) U Benzodiazepines Scrn (Negative) Urine Cocaine Screen (Negative) U Cannabinoids Screen (Negative) Monoscreen Negative (Negative) Influenza A (RT-PCR) Negative (Negative) Influenza B (RT-PCR) Negative (Negative) RSV (RT-PCR) Negative (Negative) SARS-CoV-2 RNA (RT-PCR) Negative (Negative) <Anum Edmonds, OUTPATIENT PROGRAM COORDINATOR - Last Filed: 05/18/24 12:28> Lab Results 05/18/24 05/18/24 05/18/24 Range/Units 10:37 10:52 12:39 WBC 10.0 (4.5-10.0) K/mm3 RBC 5.09 (4.2-5.4) M/mm3 Hgb 15.0 D (12.0-15.0) g/dL Hct 44.1 (37.0-47.0) % MCV 86.6 (80-100) fl MCH 29.5 (26-34) pg MCHC 34.0 (32-36) g/dl RDW 12.0 (11.5-14.5) % Plt Count 639 H (150-375) k/mm3 MPV 10.6 H (7.4-10.4) fl Immature Gran % (Auto) 1.8 H (0-0.5) % Neut % (Auto) 34.1 L (45.5-73.1) % Lymph % (Auto) 56.6 H (18.3-44.2) % [place] % (Auto) 5.5 (2.6-8.5) % Eos % (Auto) 1.2 (0-4.4) % Baso % (Auto) 0.8 (0.2-1.2) % Lymph # (Auto) 5.67 H (0.9-3.2) K/mm3 [place] # (Auto) 0.6 (0.1-0.6) K/mm3 Eos # (Auto) 0.1 (0-0.3) K/mm3 Baso # (Auto) 0.1 (0.0-0.1) K/mm3 Abs Immat Gran (auto) 0.18 H (0.00-0.031) K/mm3 Absolute Neuts (auto) 3.4 (1.3-6.7) K/mm3 Absolute Nucleated RBC 0.000 (0.0-0.012) K/mm3 Nucleated RBC % 0.0 (0.0-0.2) % Atypical Lymphocytes Present Platelet Estimate Increased (Adequate) Schistocytes None seen PT 12.8 (11.1-14.7) Seconds INR 0.9 APTT 24.1 (22.3-36.8) Seconds D-Dimer (<0.48) ug/mL Sodium 139 (137-145) mmol/L Potassium 3.3 L (3.4-5.0) mmol/L Chloride 95 L (98-107) mmol/L Carbon Dioxide 32 H (22-30) mmol/L Anion Gap 12 (4-12) mmol/L BUN 27 H (7-17) mg/dL Creatinine 2.20 H (0.7-1.0) mg/dL Estim Creat Clear Calc 30 ml/min Estimated GFR 31 L (59 - ) Glucose 181 H (65-110) mg/dL POC Capillary Glucose 190 H (65-105) mg/dl Hemoglobin A1c 8.3 H (<5.7) % Lactic Acid (0.7-2.0) mmol/L Calcium 10.3 H (8.4-10.2) mg/dL Phosphorus 4.1 (2.5-4.5) mg/dL Magnesium 2.4 H (1.6-2.3) mg/dL Total Bilirubin 0.6 (0.2-1.3) mg/dL AST 22 (14-36) U/L ALT 14 (6-35) U/L Alkaline Phosphatase 71 (38-126) U/L Troponin I 0.019 (0.000-0.034) ng/mL Total Protein 9.0 H (6.3-8.2) g/dL Albumin 4.8 (3.5-5.1) g/dL Lipase 36 (23-300) U/L Beta-Hydroxybutyrate/Acetoacetate 0.16 (0.02-0.27) mmol/L TSH 1.580 (0.465-4.680) uIU/mL Urine Color Yellow (Yellow) Urine Appearance Cloudy H (Clear) Urine pH 5.0 (5.0-9.0) Ur Specific [place] 1.027 (1.001-1.035) Urine Protein 3+ H (Negative) mg/dL Urine Glucose (UA) 3+ H (Negative) mg/dL Urine Ketones Negative (Negative) mg/dL Ur Blood (Man) Trace (Negative) Urine Nitrate Negative (Negative) Urine Bilirubin Negative (Negative) Urine Urobilinogen 0.2 (<2.0) mg/dL Add Ur Microanalysis Reviewed Leukocyte Esterase Rfl Negative (Negative) CHANG/UL Urine RBC 0-2 (0-2) /hpf Urine WBC 21-50 H (0-3) /hpf Ur Squamous Epith Cells Moderate (Few) /hpf Urine Bacteria 4+ H /hpf Urine Casts 11-20 POC Urine HCG, Qual (Negative) Urine Opiates Screen Negative (Negative) Urine Methadone Screen Negative (Negative) Ur Barbiturates Screen Negative (Negative) Ur Phencyclidine Scrn Negative (Negative) Ur Amphetamine Screen Negative (Negative) U Benzodiazepines Scrn Negative (Negative) Urine Cocaine Screen Negative (Negative) U Cannabinoids Screen Positive A (Negative) Monoscreen (Negative) Influenza A (RT-PCR) (Negative) Influenza B (RT-PCR) (Negative) RSV (RT-PCR) (Negative) SARS-CoV-2 RNA (RT-PCR) (Negative) 05/18/24 05/18/24 05/18/24 Range/Units 12:46 15:03 18:59 WBC (4.5-10.0) K/mm3 RBC (4.2-5.4) M/mm3 Hgb (12.0-15.0) g/dL Hct (37.0-47.0) % MCV (80-100) fl MCH (26-34) pg MCHC (32-36) g/dl RDW (11.5-14.5) % Plt Count (150-375) k/mm3 MPV (7.4-10.4) fl Immature Gran % (Auto) (0-0.5) % Neut % (Auto) (45.5-73.1) % Lymph % (Auto) (18.3-44.2) % [place] % (Auto) (2.6-8.5) % Eos % (Auto) (0-4.4) % Baso % (Auto) (0.2-1.2) % Lymph # (Auto) (0.9-3.2) K/mm3 [place] # (Auto) (0.1-0.6) K/mm3 Eos # (Auto) (0-0.3) K/mm3 Baso # (Auto) (0.0-0.1) K/mm3 Abs Immat Gran (auto) (0.00-0.031) K/mm3 Absolute Neuts (auto) (1.3-6.7) K/mm3 Absolute Nucleated RBC (0.0-0.012) K/mm3 Nucleated RBC % (0.0-0.2) % Atypical Lymphocytes Platelet Estimate (Adequate) Schistocytes PT (11.1-14.7) Seconds INR APTT (22.3-36.8) Seconds D-Dimer < 0.27 (<0.48) ug/mL Sodium (137-145) mmol/L Potassium (3.4-5.0) mmol/L Chloride (98-107) mmol/L Carbon Dioxide (22-30) mmol/L Anion Gap (4-12) mmol/L BUN (7-17) mg/dL Creatinine (0.7-1.0) mg/dL Estim Creat Clear Calc ml/min Estimated GFR (59 - ) Glucose (65-110) mg/dL POC Capillary Glucose (65-105) mg/dl Hemoglobin A1c (<5.7) % Lactic Acid 2.9 H 1.6 (0.7-2.0) mmol/L Calcium (8.4-10.2) mg/dL Phosphorus (2.5-4.5) mg/dL Magnesium (1.6-2.3) mg/dL Total Bilirubin (0.2-1.3) mg/dL AST (14-36) U/L ALT (6-35) U/L Alkaline Phosphatase (38-126) U/L Troponin I (0.000-0.034) ng/mL Total Protein (6.3-8.2) g/dL Albumin (3.5-5.1) g/dL Lipase (23-300) U/L Beta-Hydroxybutyrate/Acetoacetate (0.02-0.27) mmol/L TSH (0.465-4.680) uIU/mL Urine Color (Yellow) Urine Appearance (Clear) Urine pH (5.0-9.0) Ur Specific [place] (1.001-1.035) Urine Protein (Negative) mg/dL Urine Glucose (UA) (Negative) mg/dL Urine Ketones (Negative) mg/dL Ur Blood (Man) (Negative) Urine Nitrate (Negative) Urine Bilirubin (Negative) Urine Urobilinogen (<2.0) mg/dL Add Ur Microanalysis Leukocyte Esterase Rfl (Negative) CHANG/UL Urine RBC (0-2) /hpf Urine WBC (0-3) /hpf Ur Squamous Epith Cells (Few) /hpf Urine Bacteria /hpf Urine Casts POC Urine HCG, Qual Negative (Negative) Urine Opiates Screen (Negative) Urine Methadone Screen (Negative) Ur Barbiturates Screen (Negative) Ur Phencyclidine Scrn (Negative) Ur Amphetamine Screen (Negative) U Benzodiazepines Scrn (Negative) Urine Cocaine Screen (Negative) U Cannabinoids Screen (Negative) Monoscreen Negative (Negative) Influenza A (RT-PCR) Negative (Negative) Influenza B (RT-PCR) Negative (Negative) RSV (RT-PCR) Negative (Negative) SARS-CoV-2 RNA (RT-PCR) Negative (Negative) <Vandana Castro MD - Last Filed: 05/18/24 21:50> Imaging Data Radiologist's impression: Impressions Chest X-Ray 05/18/24 13:09 IMPRESSION: 1. Normal chest radiograph. <Vandana Castro MD - Last Filed: 05/18/24 21:50> ECG Data EKG #1: Attestation: I personally reviewed and interpreted this ECG as follows: <Vandana Castro MD - Last Filed: 05/18/24 21:50> ECG completion date: 05/18/24 <Vandana Castro MD - Last Filed: 05/18/24 21:50> ECG completion time: 12:45 <Vandana Castro MD - Last Filed: 05/18/24 21:50> Interpretation: sinus tachycardia rate of 111 beats per minute. NV interval 124. QRS 81. QT/QTC 357/422. There are prominent P waves throughout inferior leads. Good R-wave progression across precordial leads. No T-wave inversions. Normal axis. <Vandana Castro MD - Last Filed: 05/18/24 21:50> Discharge Plan Discharge Clinical Impression: Dizziness, Generalized weakness, Abnormal urinalysis, Thrombocytosis, Hyperglycemia due to diabetes mellitus, Acute kidney injury superimposed on CKD, Marijuana use, Elevated hemoglobin A1c <Anum Edmonds APRN - Last Filed: 05/18/24 12:28> Patient Disposition: Home, Self-Care <Anum Edmonds APRN - Last Filed: 05/18/24 12:28> Condition: Stable <Anum Edmonds APRN - Last Filed: 05/18/24 12:28> Instructions: Antibiotic Form, Acute Kidney Injury (DC), Managing Diabetes During Sick Days (ED), Weakness (ED), Dizziness (ED), Diabetic Hyperglycemia (ED) <Anum Edmonds APRN - Last Filed: 05/18/24 12:28> Additional Instructions: As we discussed, the cause of your symptoms is unclear. 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 However, you have multiple other reasons why may be having the symptoms. you did have a worsening in your kidney function which was likely related to dehydration and I recommend you get a repeat lab (your primary care physician Dr Rosenberg can order this so they can follow up on it). They may have other thoughts on working you up for your symptoms including weight loss. Keep your upcoming appointment with her catering assistant Dr Sue Arevalo on 06/15/24 to see if your diabetic medication regimen needs to be changed based on your compliance but with persistently elevated blood sugars (HA1C was 8.3% today). as we discussed, although UR asymptomatic otherwise, you did have some bacteria and white blood cells in your urine and for this reason we are treating you for urinary tract infection any received 1st dose of the antibiotic in the emergency department with rest the course prescribed. You will be notified if based on the urine culture this antibiotic regimen needs to be changed. return to the emergency department with any new or worsening symptoms. <Anum Edmonds APRN - Last Filed: 05/18/24 12:28> Prescriptions: New cephalexin 500 mg capsule 500 mg PO Q8H 7 Days Qty: 21 0RF famotidine 10 mg tablet 10 mg PO DAILY Qty: 20 0RF No Action metformin 500 mg Tablet Extended Release 24hr 500 mg PO DAILY Farxiga 10 mg Tablet 10 mg PO DAILY sulfamethoxazole-trimethoprim 800-160 mg tablet 1 tablet PO Q12H 5 Days Qty: 10 0RF fluconazole [Diflucan] 150 mg tablet 150 mg PO ONCE Qty: 1 0RF insulin lispro 100 unit/mL solution 2 unit continuous subcutaneous infusion DIRECTED ondansetron 4 mg tablet,disintegrating 4 mg PO Q6H PRN (Reason: nausea and vomiting) Qty: 10 0RF sulfamethoxazole-trimethoprim [Bactrim DS] 800-160 mg tablet 1 tablet PO Q12H Qty: 6 0RF <Anum Edmonds APRN - Last Filed: 05/18/24 12:28> Follow-up/Referrals: Darrell,Dragan Croft MD [Primary Care Provider] - <Anum Edmonds APRN - Last Filed: 05/18/24 12:28> Stand Alone Forms: Work/School Release IP <Anum Edmonds APRN - Last Filed: 05/18/24 12:28> Time of Disposition: 20:09 <Anum Edmonds APRN - Last Filed: 05/18/24 12:28> 20:09 <Vandana Castro MD - Last Filed: 05/18/24 21:50>
--- NOTE | 2024-05-18 12:28 | ECG_ITS ---
Test Date: 2024-05-18 12:45:08 Measurements Intervals [place] Rate: 111 P: 79 HI: 124 QRS: 63 QRSD: 81 T: 54 QT: 357 QTc: 486 Interpretive Statements SINUS TACHYCARDIA LEFT ATRIAL ENLARGEMENT [-0.15mV P WAVE IN V1/V2] NONSPECIFIC T-WAVE ABNORMALITY No previous ECG available for comparison Electronically Signed On 05-18-2024 14:29:40 VERIFICATION SPECIALIST by Blake Liu M.D.
--- NOTE | 2024-05-18 13:04 | PC.NURSE ---
IV attempt x 2 unsuccessful during triage/MSE in progress. Per ED Charge, u/s IV and additional labs to be drawn once pt is in room. Pt to XRAY via w/c then to w/r until pt room is available. Pt family updated and aware.
[2024-05-18 13:12] LABS: Add Urine Microscopic? YES; Appearance Urine Cloudy (Clear); Bacteria Urine 4+ /hpf; Bilirubin Urine Negative (Negative); Blood Urine Trace (Negative); Color Urine Yellow (Yellow); Glucose Urine UA 3+ mg/dL (Negative); Ketones Urine Negative (Negative); Leukocyte Esterase Ur Negative LEU/UL (Negative); Need Manual Microscopic Reviewed; Nitrate Urine Negative (Negative); Protein Urine 3+ mg/dL (Negative); RBC Urine 0-2 /hpf (0-2); Specific Grav Ur 1.027 (1.001-1.035); Squamous Epithelial Cell Urine Moderate /hpf (Few); Urobilinogen Urine 0.2 mg/dL (<2.0); WBC Urine 21-50 /hpf (0-3)
[2024-05-18 13:15] LABS: Lipase 36 U/L (23-300)
[2024-05-18 13:17] LABS: INR 0.9; Prothrombin Time 12.8 Seconds (11.1-14.7)
[2024-05-18 13:18] LABS: Partial Thromboplastin Time 24.1 Seconds (22.3-36.8)
[2024-05-18 13:19] LABS: Hemoglobin A1C 8.3 % (<5.7)
[2024-05-18 13:32] LABS: Troponin I 0.019 ng/mL (0.000-0.034)
[2024-05-18 13:39] LABS: Amphetamine Screen Urine Negative (Negative); Barbiturate Screen Urine Negative (Negative); Benzodiazepines Screen Urine Negative (Negative); Cannabinoid Screen Urine Positive (Negative); Cocaine Screen Urine Negative (Negative); Methadone Screen Urine Negative (Negative); Opiate Screen Urine Negative (Negative); Phencyclidine Screen Urine Negative (Negative)
[2024-05-18 14:01] LABS: Influenza A QL RT-PCR Negative (Negative); Influenza B QL RT-PCR Negative (Negative); RSV RNA, RT-PCR Negative (Negative); SARS-CoV-2 RNA PCR Negative (Negative)
--- NOTE | 2024-05-18 14:27 | PC.NURSE ---
Difficulty obtaining labs per order. Melanie GAFFNEY Tech & shazia RN attempted spoke with Beni in lab x2 green top blood cultures sent to lab. Unable to obtain lactate. Duncan ANDERSON attempting
[2024-05-18] MEDS: SODIUM CHLORIDE 0.9% IV 1,000 ML 999 ML IV CONT ×2 (15:11→16:34)
[2024-05-18 15:27] LABS: Lactic Acid Reflex 2.9 mmol/L (0.7-2.0)
[2024-05-18] MEDS: POTASSIUM BICARBONATE 25 MEQ TABEF PO (16:28)
[2024-05-18 17:03] LABS: BEDSIDEPREGUCG Negative (Negative)
[2024-05-18 18:05] LABS: Reflex Lactic Acid Yes or No Add Lactic
[2024-05-18 19:27] LABS: Lactic Acid 1.6 mmol/L (0.7-2.0)
[2024-05-18 19:35] LABS: D Dimer < 0.27 ug/mL (<0.48)
--- NOTE | 2024-05-18 20:01 | PC.NURSE ---
pt asked to ambulate, stood up too fast after educated to take her time, tried to take a few steps down salguero and stated, this is too much for me, I am going to sit down, we can try again later . MD Castro aware
[2024-05-18 20:25] LABS: Monoscreen Negative (Negative); Negative Monotest Control Negative (Negative); Positive Monotest Control Positive (Positive)
== END 2024-05-18 20:26 | disposition home or self-care (01) ==
PROVIDERS: Registered Nurse; Emergency Provider Student in an Organized Health Care Education/Training Program; PCP Internal Medicine
DX: E10.65 Type 1 diabetes mellitus with hyperglycemia (principal); R42 Dizziness and giddiness; R53.1 Weakness; R82.90 Unspecified abnormal findings in urine; D75.839 Thrombocytosis, unspecified; Z79.4 Long term (current) use of insulin; E78.00 Pure hypercholesterolemia, unspecified; N17.9 Acute kidney failure, unspecified; N18.9 Chronic kidney disease, unspecified; E10.22 Type 1 diabetes mellitus with diabetic chronic kidney disease; F12.90 Cannabis use, unspecified, uncomplicated; Z20.822 Contact with and (suspected) exposure to COVID-19
CPT/HCPCS: 36415; 71046; 80053; 80307; 81001; 81025; 82010; 82948; 83036; 83605; 83690; 83735; 84100; 84443; 84484; 85025; 85380; 85610; 85730; 86308; 87040; 87086; 87637; 93005; 96361; 96365; 99284; A9270; J0696; J7030

== ENCOUNTER 2024-11-03 23:29 | Emergency (ER) | payer BC, SELFPAY ==
--- NOTE | ~2024-11-03 | XR_ITS ---
Portable chest x-ray Comparison: 12-24 Clinical History: Nausea and vomiting Findings: Lungs are clear, without focal consolidation or pleural effusion. Cardiomediastinal silho uette is stable. Bones and soft tissues are unremarkable. Impression: Normal chest. Reviewed, dictated and finalized at location . Impression: Normal chest.
[2024-11-03 23:30] VITALS: BP 128/84; PULSE 113; RESP 18; TEMP 37.2; O2SAT 100
--- OUTSIDE RECORDS SUMMARY | 2024-11-03 23:31 | XMS_ITS | Clinical Summary ---
Author Organization [facility] Address [address] [place] [address] Phone Care Team Providers Care Manager Of Human Resources Name Role Phone Mahamed Rosenberg MD Primary Care Provider Allergies Active Allergy Reactions Criticality Noted Date Comments Penicillins Rash Low 2024 Medications spironolactone (ALDACTONE) 100 mg tablet Take 100 mg by mouth daily. Active ferrous sulfate 134 mg (27 mg iron) Tablet Take 134 mg by mouth daily. Active insulin glargine (LANTUS) 100 unit/mL pen syringe Inject 10 Units by subcutaneous injection daily at bedtime. Active insulin lispro (HumaLOG,ADMELO G) 100 unit/mL vial Inject 15 Units by subcutaneous injection 3 times daily with meals. Active Social History Tobacco Use Types Packs/Day Years Used Date Smoking Tobacco: Never Tobacco Cessation:Counseling Given: Not Answered Feeling Safe Answer Date Recorded Are you in a relationship wi th someone who hurts you emotionally and/or physically? No 2024 Comments Unknown Sex and Gender Information Value Date Recorded Sex Assigned at Not on file Legal Sex Female 12:47 PM CDT Gender Identity Not on file Sexual Orientation Not on file Last Filed Vital Signs Vital Sign Reading Time Taken Comments Blood Pressure 110/80 2024 5:20 PM CDT Pulse 101 2024 5:20 PM CDT Temperature 36.7 C (98 F) 2024 5:20 PM CDT Respiratory Rate 20 2024 5:20 PM CDT Oxygen Saturation 100% 2024 5:20 PM CDT Inhaled Oxygen Concentration - - Weight 52.2 kg (115 lb) 2024 3:10 PM CDT Height 167.6 cm (5' 6 ) 2024 12:56 PM CDT Body Mass Index 18.56 2024 12:56 PM CDT Plan of Treatment Health Maintenance Due Date Last Done Comments HPV VACCINES (3 - 2-dose series) 03/21/2007 12/21/19 07, 09/19/2006 DIABETES ANNUAL RETINAL EXAM 2010 DIABETES MICROALBUMIN ANNUAL SCREEN 2010 LDL CHOLESTEROL ANNUAL 2010 HPV/Cotest (21-29) 2013 HPV/Cotest (30-65) 2022 INFLUENZA VACCINE (#1) 2024 06/06/2022, 2020 DIABETES ANNUAL FOOT EXAM 09/18/2024 09/19/2023 DIABETES HBA1C Q 6 MONTHS 10/06/2024 2024, 09/2023 CERVICAL CANCER SCREENING 07/10/2026 PAP SMEAR 07/10/2026 07/10/2023 DTAP/TDAP/TD VACCINES (7 - T d or Tdap) 12/15/2031 12/14/2021, 11/26/1997, 04/09/1994, Additional history exists HEPATITIS B VACCINES Completed 04/09/1994, 03/19/1993, 1992 Procedures Procedure Name Priority Date/Time Associated Diagnosis Comments HEMOGLOBIN A1C Stat 2024 3:46 PM CDT from Last 3 Months or Most Recently Relevant to Health Maintenance Results * (ABNORMAL) HEMOGLOBIN A1C (2024 3:46 PM CDT) HEMOGLOBIN A1C 9.5(H) <5.7 % 2024 4:33 PM CDT [facility] EST. AVG GLUCOSE, A1C 226 mg/dL 2024 4:33 PM CDT [facility] Blood Venipuncture / Unknown 2024 3:46 PM CDT 2024 3:51 PM CDT Narrative [facility] - 2024 4:33 PM CDT HGB A1C INTERPRETATION NORMAL: <5.7% PRE-DIABETES: 5.7 - 6.4% DIABETES: 6.5% OR GREATER us Kevin Cannon MD CHEMISTRY ORDERABLES Final Re sult [facility] Organization Address City/State/ZIP Co de Phone Number [facility]# [id number] [address] [place] [id number] from Last 3 Months or Most Recently Relevant to Health Maintenance Insurance [facility] BLUE ACCESS CHOICE Care Teams Manager Of Human Resources Relationship Specialty Start Date End Date Mahamed Rosenberg MD [address] [place] [address] PCP - General Family Practice 04/07/24
--- OUTSIDE RECORDS SUMMARY | 2024-11-03 23:31 | XMS_ITS | Data Portability ---
Author Organization [facility] Address [address] [place] [address] Assessment No assessment recorded. Plan of Treatment Reminders Order Date Submit Date Provider Last Modified By Organization Details Last Modified Time Details Appointments None recorded . Lab HbA1c (hemoglo bin A1c), blood 2022 023 [facility] In-Office Order, Internal Use Only DO Not Attach Compendium DO Not Attach Compendium, Do Not Delete/merge, [id number] 3 17:44:17 HbA1c (hemoglo bin A1c), blood 2021 022 [facility] In-Office Order, Internal Use Only DO Not Attach Compendium DO Not Attach Compendium, Do Not Delete/merge, [id number] 2 10:30:57 HbA1c (hemoglo bin A1c), blood 2020 021 [facility] In-Office Order, Internal Use Only DO Not Attach Compendium DO Not Attach Compendium, Do Not Delete/merge, [id number] 1 15:19:54 glucose, fingerst ick, blood 2020 021 [facility] In-Office Order, Internal Use Only DO Not Attach Compendium DO Not Attach Compendium, Do Not Delete/merge, [id number] 1 13:17:22 CMP, serum or plasma 2020 021 [facility], [address] [place] [address], [address], [place], [address], 1 10:12:02 microalb umin/cre atinine, mass ratio, urine 2020 021 [facility], [address] [place] [address], [address], [place], [address], 1 10:12:03 HbA1c (hemoglo bin A1c), blood 2020 021 [facility] In-Office Order, Internal Use Only DO Not Attach Compendium DO Not Attach Compendium, Do Not Delete/merge, [id number] 12:22:56 CMP, serum or plasma 2020 021 [email or web address] [facility], [address] [place] [address], [address], [place], [address], 1 12:25:49 albumin/ creatini ne, mass ratio, urine 2020 021 [facility], [address], [address], [place], [address], 1 12:23:04 Referral diabetic ophthalm ology referral - Please call patient for appopint ment, thanks! 2022 023 [email or web address] Adriel Alicia MD, [address] , [place], [address], 3 10:02:15 [email or web address] referral 2022 023 [email or web address] Not available 3 13:06:14 Procedures None recorded . Surgeries None recorded . Imaging None recorded . Medication Orders Diflucan 100 mg tablet 2022 023 [id number], [address] , [place], [place], [id number], 3 17:44:23 Humalog U-100 Insulin 100 unit/mL subcutan eous solution 2020 021 [facility], [address], [place], [address], 12:23:05 Patient TargetsNo targets recorded. Patient Instructions Encounter Date Encounter Id Patient Instructions Last Modified By Organization Details Last Modified Time 02/02/2021 [id number] learning about type 1 diabetes [facility] Not available 02/02/2021 12:22:57 type 1 diabetes: care instructions [facility] Not available 02/02/2021 12:22:56 12/14/2021 [id number] tetanus and diphtheria booster: care instructions [facility] Not available 12/15/2021 10:30:57 07/26/2022 [id number] A healthy lifestyle: care instructions [facility] Not available 07/26/2022 17:32:50 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 Referring Physician: Dragan Ramírez, Internal Medicine, Encounter Date: 07/26/2022 Results Created Date Observation Date Name Description Value Unit Range Abnormal Flag Note LastModifiedBy Organization Detail LastModifiedTime 02/03/20 21 02/03/2021 COMP. METAB OLIC PANEL (14) glucose 366 mg/dL 65-99 above high normal Not Available [facility] ([facility]) [address] [place], [address], 02/03/2021 10:12:02 02/03/20 21 02/03/2021 COMP. METAB OLIC PANEL (14) BUN 21 mg/dL 6-20 above high normal Not Available [facility] ([facility]) [address] [place], [address], 02/03/2021 10:12:02 02/03/20 21 02/03/2021 COMP. METAB OLIC PANEL (14) creatinine 0.96 mg/dL 0.57-1 .00 normal Not Available [facility] ([facility]) [address] [facility], [place], [address], 02/03/2021 10:12:02 02/03/20 21 02/03/2021 COMP. METAB OLIC PANEL (14) eGFR if nonafricn AM 81 mL/mi n/1.7 3 >59 normal Not Available [facility] ([facility]) [address] [facility], [place], [address], 02/03/2021 10:12:02 02/03/20 21 02/03/2021 COMP. METAB OLIC PANEL (14) eGFR if africn AM 93 mL/mi n/1.7 3 >59 normal Lab [facility] curre ntly repor ts eGFR in compl iance with the curre nt recom menda tions of the Natio n[facility] y [facility] ation . [facility] will updat e repor ting as new guide lines are publi shed from the NKF-A SN Task force . Not Available [facility] ([facility]) [address] [facility], [place], [address], 02/03/2021 10:12:02 02/03/20 21 02/03/2021 COMP. METAB OLIC PANEL (14) BUN/creatini ne ratio 22 9-23 normal Not Available [facility] ([facility]) [address] [place], [address], 02/03/2021 10:12:02 02/03/20 21 02/03/2021 COMP. METAB OLIC PANEL (14) sodium 131 mmol/ L 134-14 4 below low normal Not Available [facility] ([facility]) [address] [place], [address], 02/03/2021 10:12:02 02/03/20 21 02/03/2021 COMP. METAB OLIC PANEL (14) potassium 4.4 mmol/ L 3.5-5. 2 normal Not Available [facility] ([facility]) [address] [place], [address], 02/03/2021 10:12:02 02/03/20 21 02/03/2021 COMP. METAB OLIC PANEL (14) chloride 95 mmol/ L 96-106 below low normal Not Available [facility] ([facility]) [address] [place], [address], 02/03/2021 10:12:02 02/03/20 21 02/03/2021 COMP. METAB OLIC PANEL (14) carbon dioxide, total 23 mmol/ L 20-29 normal Not Available [facility] ([facility]) [address] [place], [address], 02/03/2021 10:12:02 02/03/20 21 02/03/2021 COMP. METAB OLIC PANEL (14) calcium 9.7 mg/dL 8.7-10 .2 normal Not Available [facility] ([facility]) [address] [place], [address], 02/03/2021 10:12:02 02/03/20 21 02/03/2021 COMP. METAB OLIC PANEL (14) protein, total 7.4 g/dL 6.0-8. 5 normal Not Available [facility] ([facility]) [address] [place], [address], 02/03/2021 10:12:02 02/03/20 21 02/03/2021 COMP. METAB OLIC PANEL (14) albumin 3.9 g/dL 3.9-5. 0 normal Not Available [facility] ([facility]) [address] [place], [address], 02/03/2021 10:12:02 02/03/20 21 02/03/2021 COMP. METAB OLIC PANEL (14) globulin, total 3.5 g/dL 1.5-4. 5 normal Not Available [facility] ([facility]) [address] [place], [address], 02/03/2021 10:12:02 02/03/20 21 02/03/2021 COMP. METAB OLIC PANEL (14) A/G ratio 1.1 1.2-2. 2 below low normal Not Available [facility] ([facility]) [address] [facility], [place], [address], 02/03/2021 10:12:02 02/03/20 21 02/03/2021 COMP. METAB OLIC PANEL (14) bilirubin, total <0.2 mg/dL 0.0-1. 2 normal Not Available [facility] ([facility]) [address] [facility] [place], [address], 02/03/2021 10:12:02 02/03/20 21 02/03/2021 COMP. METAB OLIC PANEL (14) alkaline phosphatase 109 IU/L 48-121 normal Not Available [facility] ([facility]) [address] [facility], [place], [address], 02/03/2021 10:12:02 02/03/20 21 02/03/2021 COMP. METAB OLIC PANEL (14) AST (SGOT) 12 IU/L 0-40 normal Not Available [facility] ([facility]) [address] [facility], [place], [address], 02/03/2021 10:12:02 02/03/20 21 02/03/2021 COMP. METAB OLIC PANEL (14) ALT (SGPT) 15 IU/L 0-32 normal Not Available [facility] ([facility]) [address] [facility], [place], [address], 02/03/2021 10:12:02 02/03/20 21 02/03/2021 ALBUM IN/CR EAT RATIO , RANDO M UR creatinine, urine 31.1 mg/dL not estab. normal Not Available [facility] ([facility]) [address] [facility], [place], [address], 02/03/2021 10:12:03 02/03/20 21 02/03/2021 ALBUM IN/CR EAT RATIO , LILI Clancy UR albumin, urine 493.7 ug/mL not estab. normal Resul ts confi rmed on dilut ion. Not Available [facility] ([facility]) [address] [facility], [place], [address], 02/03/2021 10:12:03 02/03/20 21 02/03/2021 ALBUM IN/CR EAT RATIO , RANDO M UR alb/creat ratio 1587 mg/g_ creat 0-29 above high normal Prachi l: 0 - 29 Moder ately incre ased: 30 - 300 Sever aldo incre ased: >300 Not Available [facility] ([facility]) [address] [facility], [place], [address], 02/03/2021 10:12:03 02/03/20 21 02/02/2021 HbA1c (hemo globi n A1c), blood HbA1c 14.6% Not Available In-Office Order Internal Use Only DO Not Attach Compendium DO Not Attach Compendium, Do Not Delete/merge, [id number] 02/02/2021 12:19:00 04/27/20 21 04/27/2021 HbA1c (hemo globi n A1c), blood HbA1c 13.4 Not Available In-Office Order Internal Use Only DO Not Attach Compendium DO Not Attach Compendium, Do Not Delete/merge, [id number] 04/27/2021 12:41:50 04/27/20 21 04/27/2021 HbA1c (hemo globi n A1c), blood HbA1c 13.4% Not Available In-Office Order Internal Use Only DO Not Attach Compendium DO Not Attach Compendium, Do Not Delete/merge, [id number] 04/27/2021 13:02:46 04/27/20 21 04/27/2021 gluco sesheron, blood Blood Glucose: mg/dl 344 Not Available In-Off ice Order Internal Use Only DO Not Attach Compendium DO Not Attach Compendium, Do Not Delete/merge, [id number] 04/27/2021 12:42:36 12/15/19 22 12/14/2021 HbA1c (hemo globi n A1c), blood HbA1c 8.8% Not Available In-Office Order Internal Use Only DO Not Attach Compendium DO Not Attach Compendium, Do Not Delete/merge, [id number] 12/14/2021 16:20:04 07/26/19 23 07/26/2022 HbA1c (hemo globi n A1c), blood HbA1c 9.8% Not Available In-Office Order Internal Use Only DO Not Attach Compendium DO Not Attach Compendium, Do Not Delete/merge, [id number] 07/26/2022 17:20:08 08/02/19 22 08/02/2001 US, thyro id No observ ation record ed. [facility] (Imaging) [address] [place], [address], 08/02/2021 18:07:14 05/18/20 24 05/18/2024 XR, chest , 2 view No observ ation record ed. [address], [address], 05/18/2024 17:36:49 Result Notes None recorded. Problems Name Problem SNOMED Code Status Onset Date Resolution Date Notes Provider Name and Address Organization Details Recorded Time Diabetes mellitus 88459787 Active Not Available [facility] 2 09:17:12 Hyperlipidemi a 61803918 Active Not Available [facility] 2 09:17:12 Microalbuminu rosemarie diabetic nephropathy 574329088 Active Not Available [facility] 2 09:17:12 Problem Notes None recorded. Procedures Surgical History None recorded. Imaging Results Imaging Date Name Status [facility] Details LastModified Time 08/02/2001 US, thyroid completed [facility] (Im[facility]) [address] [place], [address], 08/02/2021 18:07:14 05/18/2024 XR, chest, 2 view completed [address], [address], 05/18/2024 17:36:49 Procedure Notes None recorded. Medical Equipment None Reported. Allergies Allergen ID Allergen Name Allergen Category Reaction Reaction Severity Criticality Documentation Date Start Date Code Code System Note Provider Name and Address Organization Details Recorded Time 698703 Product containin g penicilli n (product) medicatio n hives Not available Not available 02/02/2021 [id number] [id number] SNOMED Corinna Richardson, LISA [place], [place] - [facility] 11:56:52 Medications Name Sig Start Date Stop Date Status Note LastModified by Organization Details LastModified Time advocate insulin syringe 31g x 5/16 advocate insulin syringe 31g x 5/16 1 ml misc active Not Available Not Available Not Available alcohol swabs 70 % pads active Not Available Not Available Not Available Prescript ion - Prior Authoriza tion Request 08/25 completed Not Available Not Available Not Available cyclobenz aprine 10 mg tablet 12/14 completed Not Available Not Available Not Available amoxicill in 500 mg capsule 08/25 completed Not Available Not Available Not Available fluconazo le 100 mg tablet Take 1 tablet every day by oral route after meals for 2 days. active Not Available Not Available No t Available atorvasta tin 40 mg tablet TAKE 1 TABLET BY MOUTH ONCE DAILY active Not Available Not Available No t Available metformin 500 mg tablet Take 1 tablet twice a day by oral route for 30 days. 03/25 completed Not Available Not Available Not Available potassium chloride ER 10 mEq capsule,e xtended release Take 1 capsule every day by oral route as needed for 30 days. active Not Available Not Available No t Available clindamyc in HCl 300 mg capsule TAKE 1 CAPSULE BY MOUTH TWICE DAILY FOR 7 DAYS 08/12 completed Not Available Not Available Not Available cetirizin e 10 mg tablet 08/25 completed Not Available Not Available Not Available pravastat in 40 mg tablet Take 1 tablet every day by oral route at dinner for 30 days. 03/25 completed Not Available Not Available Not Available ibuprofen 800 mg tablet TAKE 1 TABLET BY MOUTH EVERY 8 HOURS NEEDED FOR PAIN active Not Available Not Available No t Available Lidocaine Viscous 2 % mucosal solution GARGLE AND SPIT 5 MLS BY MOUTH FOUR TIMES A DAY NEEDED FOR PAIN 12/14 completed Not Available Not Available Not Available nystatin 100,000 unit/gram topical ointment MIX EQUAL AMOUNTS OF NYSTATIN AND TRIAMCIN OLONE OINTMENT S AND APPLY TO VAGINAL AREA TWICE DAILY 08/12 completed Not Available Not Available Not Available fluconazo le 150 mg tablet TAKE 1 TABLET BY MOUTH A ONE TIME DOSE active Not Available Not Available No t Available hydrocodo ne 5 mg-acetam inophen 325 mg tablet TAKE 1 TO 2 TABLETS BY MOUTH EVERY 4 TO 6 HOURS NEEDED MAX 8 PER DAY active Not Available Not Available No t Available Q-Dryl 25 mg capsule 03/25 completed Not Available Not Available Not Available metronida zole 0.75 % (37.5 mg/5 gram) vaginal gel 08/25 completed Not Available Not Available Not Available Tubersol 5 tub. unit/0.1 mL intraderm al injection solution Inject 0.1 mL by intrader mal route. 12/14 completed Patient received P.P.D. on 09/06/19, due to be read 09/08/19. Not Available Not Available Not Available Lantus U-100 Insulin 100 unit/mL subcutane ous solution ADMINIST ER 15 UNITS UNDER THE SKIN EVERY DAY AT BEDTIME 03/25 completed lantus changed to Basaglar Not Available Not Available Not Available penicilli n V potassium 500 mg tablet 02/02 completed Not Available Not Available Not Available metronida zole 500 mg tablet 08/25 completed Not Available Not Available Not Available insulin syringe U-100 with needle 0.3 mL 30 gauge x 1/2 Use as directed to injectio n insulin once daily 2020 active Not Available Not Available Not Avai lable ciproflox acin 500 mg tablet TAKE 1 TABLET BY MOUTH EVERY 12 HOURS 08/12 completed Not Available Not Available Not Available sulfameth oxazole 800 mg-trimet hoprim 160 mg tablet TAKE 1 TABLET BY MOUTH EVERY 12 HOURS active Not Available Not Available No t Available triamcino lone acetonide 0.1 % topical cream 03/25 completed Not Available Not Available Not Available glimepiri de 2 mg tablet Take 1 tablet every day by oral route for 30 days. 03/25 completed Not Available Not Available Not Available lancets use to test bs daily 2015 active Not Available Not Available Not Avai lable pravastat in 80 mg tablet TAKE 1 TABLET BY MOUTH EVERY DAY AFTER DINNER active Not Available Not Available No t Available metoclopr amide 5 mg tablet TAKE 1 TABLET BY MOUTH EVERY 6 HOURS NEEDED FOR NAUSEA AND VOMITING FOR UP TO 8 DOSES active Not Available Not Available No t Available dicyclomi ne 20 mg tablet 08/25 completed Not Available Not Available Not Available OneTouch Ultra Test strips active Not Available Not Available Not Available cephalexi n 500 mg capsule 08/12 completed Not Available Not Available Not Available metformin 1,000 mg tablet Take 1 tablet twice a day by oral route for 30 days. 03/25 completed Not Available Not Available Not Available triamcino lone acetonide 0.1 % topical ointment MIX EQUAL AMOUNTS OF TRIAMCIN OLONE WITH NYSTATIN AND APPLY TO VAGINAL AREA TWICE DAILY 08/12 completed Not Available Not Available Not Available nystatin 100,000 unit/gram topical cream 03/25 completed Not Available Not Available Not Available losartan 25 mg tablet TAKE 1/2 TABLET BY MOUTH EVERY DAY DIRECTED active Not Available Not Available No t Available hydroxyzi ne HCl 25 mg tablet 03/25 completed Not Available Not Available Not Available alcohol swabs APPLY 1 PAD EVERY DAY BY TOPICAL ROUTE DIRECTED 2022 active Not Available Not Available Not Avai lable lisinopri l 5 mg tablet TAKE 1 TABLET BY MOUTH EVERY DAY 08/25 completed Not Available Not Available Not Available furosemid e 20 mg tablet Take 1 tablet every day by oral route as needed for 30 days. 12/14 completed Not Available Not Available Not Available Novolog U-100 Insulin aspart 100 unit/mL subcutane ous solution INJECT 65 UNITS UNDER THE SKIN EVERY DAY DIRECTED 08/25 completed Not Available Not Available Not Available insulin lispro (U-100) 100 unit/mL subcutane ous solution INJECT 70 UNITS SUBCUTAN EOUSLY EVERY DAY DIRECTED active Not Available Not Available No t Available levofloxa beau 500 mg tablet 09/19 completed Not Available Not Available Not Available ketoconaz ole 2 % topical cream 03/25 completed Not Available Not Available Not Available ondansetr on 4 mg disintegr ating tablet DISSOLVE 1 TABLET IN MOUTH EVERY 6 HOURS NEEDED FOR NAUSEA AND VOMITING active Not Available Not Available No t Available fluticaso ne propionat e 50 mcg/actua tion nasal spray,taniya pension [place] 1 spray every day by intranas al route as needed for 30 days. 12/14 completed Not Available Not Available Not Available metformin ER 500 mg tablet,ex tended release 24 hr TAKE 1 TABLET BY MOUTH EVERY DAY active Not Available Not Available No t Available naproxen 500 mg tablet 12/14 completed Not Available Not Available Not Available amoxicill in 875 mg-potass ium clavulana te 125 mg tablet TAKE 1 TABLET BY MOUTH EVERY 12 HOURS 02/02 completed Not Available Not Available Not Available Fish Oil Concentra te 1,000 mg capsule Take 1 capsule twice a day by oral route with meals for 30 days. 08/12 completed Not Available Not Available Not Available azithromy beau 500 mg tablet 03/25 completed Not Available Not Available Not Available Novolog Mix 70-30 FlexPen U-100 Insulin 100 unit/mL subcutane ous pen INJECT 20 UNITS UNDER THE SKIN TWICE DAILY DIRECTED FOR 30 DAYS 01/23 completed Not Available Not Available Not Available Novolog Mix 70-30 U-100 Insulin 100 unit/mL subcutane ous solution INJECT 20 UNITS SUBCUTAE NOUSLY TWICE DAILY BEFORE MEAL(S) 08/25 completed Not Available Not Available Not Available nitrofura ntoin monohydra te/macroc rystals 100 mg capsule TAKE 1 CAPSULE BY MOUTH EVERY 12 HOURS WITH MEALS FOR 5 DAYS active Not Available Not Available No t Available Fish Oil 340 mg-1,000 mg capsule Take 1 capsule twice a day by oral route after meals for 30 days. 12/14 completed Not Available Not Available Not Available FeroSul 325 mg (65 mg iron) tablet TAKE 1 TABLET BY MOUTH EVERY OTHER DAY active Not Available Not Available No t Available Lantus Solostar U-100 Insulin 100 unit/mL (3 mL) subcutane ous pen INJECT 10 UNITS SUBCUTAN EOUSLY NIGHTLY active Not Available Not Available No t Available Humalog KwikPen (U-100) Insulin 100 unit/mL subcutane ous INJECT 3 UNITS SUBCUTAN EOUSLY THREE TIMES DAILY WITH MEALS active Not Available Not Available No t Available Trueresul t Blood Glucose System kit 08/25 completed Not Available Not Available Not Available pen needle, diabetic 32 gauge x 5/32 USE DIRECTED THREE TIMES DAILY active Not Available Not Available No t Available Tradjenta 5 mg tablet Take 1 tablet every day by oral route for 30 days. 03/25 completed Not Available Not Available Not Available Ultra-Thi n II (Short) Insulin syringe 0.3 mL 31 gauge x 5/16 use to inject insulin once a day 12/14 completed Not Available Not Available Not Available TRUEplus Insulin 0.3 mL 30 gauge x 5/16 syringe 12/14 completed Not Available Not Available Not Available TRUEplus Insulin 1 mL 31 gauge x 5/16 syringe INJECT 65 UNITS UNDER THE SKIN DAILY 12/14 completed Not Available Not Available Not Available TRUEplus Lancets 33 gauge 08/25 completed Not Available Not Available Not Available TRUEplus Lancets 30 gauge 08/25 completed Not Available Not Available Not Available TRUEplus Lancets 28 gauge 08/25 completed Not Available Not Available Not Available Farxiga 10 mg tablet active Not Available Not Available Not Available True Metrix Glucose Meter 08/25 completed Not Available Not Available Not Available Dexcom G6 Sensor device active Not Available Not Available Not Available Dexcom G6 Roof Fitter active Not Available Not Available Not Available Dexcom G6 Transmitt er device active Not Available Not Available No t Available Vitals Date Recorded Body height Body mass index (BMI) Body weight Heart rate Body temperature Oxygen saturation Oxygen saturation in Arterial blood by Pulse oximetry Systolic blood pressure Diastolic blood pressure Provider Name and Address Organization Details Last Updated DateTime 1 168.91 cm 25.5 kg/m2 73136.2 1 g 96 /min 98.5 [degF] 98 % 98 % 110 mm[Hg] 80 mm[Hg] Corinna Richardson [place] - [facility] 1 12:01:41 Date Recorded Body height Body mass index (BMI) Body weight Heart rate Oxygen saturation Oxygen saturation in Arterial blood by Pulse oximetry Respiratory rate Systolic blood pressure Diastolic blood pressure Provider Name and Address Organization Details Last Updated DateTime 1 168.91 cm 25.3 kg/m2 91985.1 9 g 95 /min 100 % 100 % 14 /min 124 mm[Hg] 80 mm[Hg] Angela FabbyLISA marie [facility] 1 12:48:53 Date Recorded Body height Body mass index (BMI) Body weight Body temperature Oxygen saturation Oxygen saturation in Arterial blood by Pulse oximetry Heart rate Systolic blood pressure Diastolic blood pressure Provider Name and Address Organization Details Last Updated DateTime 1 168.91 cm 25.9 kg/m2 98788.9 9 g 98.1 [degF] 99 % 99 % 102 /min 106 mm[Hg] 76 mm[Hg] Alexander Henry MA [facility] 1 16:21:01 Date Recorded Body height Body mass index (BMI) Body weight Body temperature Oxygen saturation Oxygen saturation in Arterial blood by Pulse oximetry Heart rate Systolic blood pressure Diastolic blood pressure Provider Name and Address Organization Details Last Updated DateTime 2 168.91 cm 26.4 kg/m2 82839.3 3 g 98.4 [degF] 98 % 98 % 101 /min 106 mm[Hg] 70 mm[Hg] Alexander Henry MA [facility] 2 16:07:26 Date Recorded Body height Provider Name an d Address Organization Details Last Updated DateTime 07/26/2022 168.91 cm Julieth De Linda holloway MA [facility] 07/26/2022 17:02:30 Date Recorded Body mass index (BMI) Body weight Heart rate Oxygen saturation Oxygen saturation in Arterial blood by Pulse oximetry Systolic blood pressure Diastolic blood pressure Provider Name and Address Organization Details Last Updated DateTime 3 26.1 kg/m2 55884.1 5 g 105 /min 100 % 100 % 108 mm[Hg] 70 mm[Hg] Gifty Villarreal MA [facility] 3 17:10:29 Social History Question Answer Notes LastModified by Organizat ion Details LastModified Time Tobacco Smoking Status Never Smoker Alexander Henry MA null, [facility] 10/12/2014 15:30:07 What Was The Date Of Your Most Recent Tobacco Screening? 07/26/2022 [email or web address] Information not available 07/26/2022 Sex: Unknown Functional Status Question Answer Note LastModified by Organization D etails LastModified Time What is your level of alcohol consumption? None [email or web address] Information not available 10/12/2014 Mental Status None recorded. Family History Nothing Reported. Medical History Condition Response Diabetes Y Gynecological History Statement/Question Response Date of LMP 12/09/2021 Obstetrics History GPAL:G 0 P 0 0 0 0 Immunizations Vaccine Type Date Status Note Provider Nam e and Address Organization Details Recorded Time influenza, unspecified formulation 2 completed Not Available [facility] 04/09/2023 00:35:44 Influenza, split virus, quadrivalent, preservative 1 completed Dragan Ramírez MD Attn: Accounting[address] [facility], [place], [address], [facility], [place] - [facility] 09/01/2020 13:10:35 Tdap 2 completed Alexander Henry MA [facility], [place] - [place] 12/14/2021 17:57:06 Past Encounters Encounter ID Performer Location Encounter Start Date Encounter Closed Date Diagnosis/Indication Diagnosis SNOMED-CT Code Diagnosis ICD10 Code Diagnosis Note [id number] Dragan Ram[facility] [address] [place] [address] [id number] 10/12/2014 13:41:36 10/12/2014 16:10:21 Diabetes mellitus [id number] Dragan Ramírez MD [facility] (Adult Med) [address] [place] [address] [id number] 11/26/2014 14:42:29 11/26/2014 15:56:57 Diabetes mellitus [id number] Hyperlipidemia 08649465 Microalbum inuric diabetic nephropathy [id number] Dragan Ramírez MD [facility] (Adult Med) [address] [place] [address] [id number] 0 03/25/2015 16:05:52 03/28/2015 12:04:19 Diabetes mellitus 42317742 E13.21 E11.39 E13.65 Hyperlipidemia 52765191 E78.5 Microalbum inuric diabetic nephropathy 383558891 E11.21 [id number] Dragan Ramírez MD [facility] (Adult Med) [address] [place] [address] [id number] 0 06/14/2015 14:40:33 06/14/2015 15:39:32 Diabetes mellitus 53740060 E13.21 E11.65 Hyperlipidemia 69114615 E78.5 Microalbum inuric diabetic nephropathy 891028435 E11.21 [id number] MD [facility] (Adult Med) [address] [place] [address] [id number] 0 11/23/2015 09:41:29 11/28/2015 13:38:52 Diabetes mellitus 64236256 E13.21 E11.65 Hyperlipidemia 94004129 E78.5 Microalbum inuric diabetic nephropathy 549967165 E11.21 [id number] MD [facility] (Adult Med) [address] [place] [address] [phone] 0 09/19/2016 09:42:52 09/20/2016 10:43:29 Diabetes mellitus 91062973 E13.21 Her creatinine was normal at ER yesterday, she does not want insulin pump, she has compliance issue to keep the timely office appointmen t , she has not been in this office since November 2015 and her last HgA1c was May 2015. She was told by eye doctor that she dose not have diabetic retinopath y. Will adjust her insulin dose to achieve the better controll of her type 2 DM. Diabetic diet, excercise. Microalbum inuric diabetic nephropathy 211943180 E11.21 Hyperlipidemia 11399264 E78.5 [id number] Dragan Ramírez MD [facility] (Adult Med) [address] [place] [address] [id number] 03/25/2017 14:23:23 03/25/2017 15:58:03 Uncontrolled type 1 diabetes mellitus 727232266 E10.65 Diet, exercise and her HgA1C is 11.6% today, poorly controlled DM. will consider insulin pump. She ran out the insulin. She had annual flu shot. Administra tion of influenza vaccine 24732003 Z23 She refuses. Candidiasis of vagina 72 888186 B37.3 Got yeast infection from time to time. [id number] [facility] [address] [place] [address] [id number] 0 07/09/2017 16:18:06 07/09/2017 18:07:56 Type 1 diabetes mellitus 29013628 E10.9 Blood sugar is not well controll, will consider insulin pump if feasible. Candidiasis of vagina 72 940407 B37.3 Got yeast infection from time to time. [id number] [facility] [address] [place] [address] [phone] 0 10/15/2017 12:02:56 10/15/2017 12:44:34 Type 2 diabetes mellitus 43630337 E11.9 She start to take pill at age of 11 for her sugar diabetes, then change to insulin shot later. She also saw eye doctor annually. Awaiting insulin pump to call back. Dyslipidem ia due to type 2 diabetes mellitus 4649575313 02 E78.5 [id number] MD [facility] (Adult Med) [address] [place] [address] [id number] 0 01/23/2018 12:03:54 01/23/2018 13:12:52 Type 2 diabetes mellitus without complication 678836771 E11.9 On insulin pump. to continue diabetic diet, exercise and lose weight, she agreed. Candidiasis of vagina 72 968850 B37.3 Got yeast infection from time to time. [id number] [facility] [address] [place] [address] [id number] 0 05/27/2018 15:38:29 05/27/2018 16:57:47 Type 2 diabetes mellitus 89715489 E11.9 She start to take pill at age of 11 for her sugar diabetes, then change to insulin shot later. She also saw eye doctor annually. Awaiting insulin pump to call back. On insulin pump. [id number] MD [facility] (Adult Med) [address] [place] [address] [id number] 08/26/2019 10:16:30 08/27/2019 12:41:02 Diabetes mellitus 91272318 E13.21 Type 1 DM. on insulin pump. Hyperlipidemia 62323429 E78.5 Microalbum inuric diabetic nephropathy 872098495 E11.21 Discussed with patient, lisinopril made her having swollen lip. Dyslipidem ia due to type 2 diabetes mellitus 6189399751 02 E78.5 Candidiasis of vagina 72 292634 B37.3 Got yeast infection from time to time. [id number] MD [facility] (Adult Med) [address] [place] [address] 0 11/25/2019 08:13:30 11/26/2019 08:34:41 Diabetes mellitus 42648738 E13.21 Type 1 DM. on insulin pump. Hyperlipidemia 49400184 E78.5 Microalbum inuric diabetic nephropathy 842267205 E11.21 Discussed with patient, lisinopril made her having swollen lip. [id number] MD [facility] (Adult Med) [address] [place] [address] 0 12/11/2019 07:57:42 12/14/2019 06:56:52 Swelling of bilateral lower limbs 204618362 M79.89 Discussed with patient, she agreed to try diuretic first, and let this office informed. [id number] MD [facility] (Adult Med) [address] [place] [address] 0 02/01/2020 15:53:39 02/02/2020 18:36:23 Swelling of bilateral lower limbs 711181135 M79.89 Discussed with patient, she agreed to try diuretic first, and let this office informed. Avoid walking around for 2 weeks. [id number] MD [facility] (Adult Med) [address] [place] [address] 0 08/12/2020 07:57:41 08/12/2020 20:44:12 Diabetes mellitus 49053886 E13.21 Type 1 DM. on insulin pump. Hyperlipidemia 99414499 E78.5 LOw animal fat diet, low saturated fat diet. Microalbum inuric diabetic nephropathy 932958358 E11.21 Discussed with patient, lisinopril made her having swollen lip. Swelling o f bilateral lower limbs 171869821 M79.89 Discussed with patient, she agreed to try diuretic first, and let this office informed. Avoid walking around for 2 weeks. Candidiasis of vagina 72 113667 B37.3 Got yeast infection from time to time. Allergic rhinitis 458701 04 J30.9 Stable. [id number] MD [facility] (Adult Med) [address] [place] [address] [phone] 0 08/29/2020 14:59:05 08/30/2020 10:24:07 Administration of influenza vaccine 41623348 Z23 She refuses. Tuberculos is screening 274058848 Z11.1 [id number] MD [facility] (Adult Med) [address] [place] [address] [phone] 0 09/05/2020 14:53:05 09/08/2020 09:58:45 Tuberculosis screening 352775821 Z11.1 Done at office 08-29-2020 .and been read on 09-01-2020 was negative, this is first step. [id number] MD [facility] (Adult Med) [address] [place] [address] [phone] 0 02/02/2021 11:45:16 02/09/2021 09:37:17 Type 1 diabetes mellitus 31358186 E10.9 Blood sugar is not well controll, will consider insulin pump if feasible. Diabetes mellitus 540769 09 E13.21 Type 1 DM. on insulin pump. frequent monitor blood sugar for the adjustment of her insulin, dose blood sugar 3-4 times/day. [id number] MD [facility] (Adult Med) [address] [place] [address] [phone] 0 04/27/2021 12:39:10 04/28/2021 12:55:21 Diabetes mellitus 01418999 E13.21 Type 1 DM. on insulin pump. frequent monitor blood sugar for the adjustment of her insulin, dose blood sugar 3-4 times/day. Dyslipidem ia due to type 2 diabetes mellitus 8508897708 02 E78.5 on pravastati n. Microalbum inuric diabetic nephropathy 819364337 E11.21 Discussed with patient, lisinopril made her having swollen lip. [id number] MD Jos eAlfred[facility] (Adult Med) [address] [place] [address] [phone] 0 05/23/2021 16:02:04 05/24/2021 08:42:58 Uncontrolled type 1 diabetes mellitus 706373965 E10.65 Diet, exercise and her HgA1C is 11.6% today, poorly controlled DM. will consider insulin pump. She ran out the insulin. She had annual flu shot. She prefers to work 40 hours /week . She has enough insulin. will increase dose of insulin, she agreed. Awaiting her company to give this office the official letter stating exactly what wording they wants, then we will be on the same page . Copies of previous notes from this office provided to patient to bring back to her company. [id number] MD [facility] (Adult Med) [address] [place] [address] [phone] 0 12/14/2021 15:37:46 12/15/2021 14:50:46 Diabetes mellitus 63340869 E13.21 Type 1 DM. on insulin pump. frequent monitor blood sugar for the adjustment of her insulin, dose blood sugar 3-4 times/day. Administra tion of diphtheria, pertussis, and tetanus vaccine 597362631 Z23 She tolerated shot well. [id number] [facility] [address] [place] [address] [phone] 0 07/26/2022 16:54:59 07/31/2022 13:33:59 Overweight 063188795 E66.3 Her BMI is 26.1, 07-26-2022 . Diabetes mellitus 262965 09 E13.21 Type 1 DM. on insulin pump. frequent monitor blood sugar for the adjustment of her insulin, dose blood sugar 3-4 times/day. Screening for malignant neoplasm of cervix 962415453 Z12.4 And mammogram. Health Concerns Section Related Observation LastModified by Organization Detai ls LastModified Time None Recorded Concern Status LastModified by Organization Details LastModified Time None Recorded Advance Directives Directive None Recorded Payers Encounter Date Sequence Insurance Name Policy Number Policy Mcfarlane Covered Member ID Mcfarlane Member ID Guarantor Name 02/02/2021 1 [facility] (MEDICAID HM) [id number] Moshe Sy [id number] Moshe Sy 04/27/2021 1 [facility] (MEDICAID HMO) [id number] Moshe Sy [id number] Moshe Sy 05/23/2021 1 [facility] (MEDICAID HMO) [id number] Moshe Sy [id number] Moshe Sy 12/14/2021 1 [facility] (MEDICAID HMO) [id number] Moshe Sy [id number] Moshe Sy 07/26/2022 1 [facility] (MEDICAID REPLACEMENT - HMO) [id number] Moshe Sy [id number] Moshe Sy Notes Date Note Type Note Provider Name and Address Organization Details Recorded Time 02/02/2021 text/html Office visit, ty pe 1 DM, on insulin pump, has to check her blood sugar 3-4 times /day, just got over the acute upper respiratory tract infection, finished amoxicillin. got pill for the fungus infection, needs refill insulin, and asking for dexcom monitor. Allergic to penicillins. Dragan Ramírez MD Attn: Accounting[address] [place], [address], [facility] 02/02/2021 12:26:48 04/27/2021 text/html Office visit, on insulin pump , she took out to clean it, has dexcom for blood sugar monitor, has enough insulin, pravastatin and furosemide , allergic to penicillins. no legs pain , no change of eye sight. Dragan Ramírez MD Attn: Accounting[address] [facility], [place], [address], [facility] 04/27/2021 13:14:31 05/23/2021 text/html Office visit, ty pe 1 DM on insulin, her company wants new note for her work, 40 hours/week, 8 hours /day. accordingly she said the company dose not like the word prefer or prefers . Previously this office had issued 2 letters for the same issue. Then the question is that what the company really wants , this office wants to know exact the wording they wants, Dr. Ramírez wants official letter from company to state such requirement. Wish both sides are in the same page. Dragan Ramírez MD Attn: Accounting[address] [place], [address], [facility] 05/23/2021 16:46:08 12/14/2021 text/html Office visit, alfonso crewsgic to penicillins. , type 1 DM on insulin pump. dyslipidemia, and microalbuminuric diabetic nephropathy, annual evaluation. Dragan Ramírez MD Attn: Accounting[address] [facility], [place], [address], [facility] [place] 12/14/2021 18:34:45 07/26/2022 text/html Office visit, alfonso crewsgic to penicillins. and lisinopril. history of type 1 DM on insulin pump. wants refill needle, strip, dexcon GS, and some thing for yeast infection. Dragan Ramírez MD Attn: Accounting[address] [facility], [place], [address], [facility] [place] 07/26/2022 17:52:27 OBGyn Episode No OBEpisode recorded.
--- OUTSIDE RECORDS SUMMARY | 2024-11-03 23:32 | XMS_ITS | Data Portability ---
Author Organization [facility] [place] Address [address] [place] [address] Care Team Providers Care Lens Maker Name Role Phone DAPHNE SOLARES Primary Care Provider NOHEMI NICKERSON Primary Care Provider [phone] Assessment Encounter Date Assessment Date Assessment LastModified by Organization Details LastModified Time 02/03/2020 02/03/2020 Annual gynecological exam performed. Patient will come back in a year unless there are new symptoms. check pcos labs, pt to work on decreasing hga1c and then can talk about fertility Not available 02/03/2020 11:20:04 03/14/2021 03/14/2021 STD testing done per patient preference Rx: diflucan x2 discussed uncontrolled DM will cause mroe yeast infections discussed need to get DM under excellent control before tTC. discussed risks of miscarriage and defects. encouraged contraception until then, pt declines Will notify with any abnormal results Call office if symptoms worsening or not improving with treatment PCOS labs, TSH, A1C for irregular menses Follow up for WWE billy Not available 03/14/2021 13:19:30 07/09/2023 07/09/2023 Annual gynecological exam performed. Patient will come back in a year unless there are new symptoms. Not available 07/09/2023 18:19:38 Plan of Treatment Reminders Order Date Submit Date Provider Last Modified By Organization Details Last Modified Time Details Appointments None recorded. Lab HbA1c (hemoglobin A1c), blood 2020 021 [facility] (Lab), [address], [place], [address], 15:28:41 dhea-sulfat e, serum 2020 [facility] (Lab), [address], [place], [address], 15:28:39 estradiol, serum 2020 [facility] (Lab), [address], [place], [address], 15:28:39 FSH (follicle-s timulating hormone), serum 2020 [facility] (Lab), [address], [place], [address], 15:28:40 prolactin, serum 2020 [facility] (Lab), [address] [place], [address], 15:28:40 TSH, serum or plasma 2020 [facility] (Lab), [address], [place], [address], 15:28:41 testosteron e free/testos terone total, ratio, serum 2020 [facility] (Lab), [address], [place], [address], 15:28:42 Referral None recorded. Procedures None recorded. Surgeries None recorded. Imaging None recorded. Medication Orders spironolact one 100 mg tablet [address], [address], [place], [address], 4 18:40:09 spironolact one 50 mg tablet 2023 024 [facility] [address], [address], [place], [address], 4 18:20:07 Diflucan 150 mg tablet 2020 021 tabmaulik [facility] [address]25, [address], [place], [address], 4 18:23:53 Diflucan 150 mg tablet 2019 020 tabmaulik [facility] [address], [address], [place], [address], 4 18:23:53 nystatin-tr iamcinolone 100,000 unit/gram-0 .1 % topical ointment 2019 020 [facility], [address], [place], [address], 1 12:03:23 Patient TargetsNo targets recorded. Patient Instructions Encounter Date Encounter Id Patient Instructions Last Modified By Organization Details Last Modified Time 02/03/2020 [id number] Suggest Calcium with Vitamin D if not eating in diet. Patient advised to get annual flu shot. Recommend yearly physicals and preform monthly breast exams. Genetic testing is available for patients with family history of cancer. Engage in safe sexual practices, use condoms. Encouraged to have daily exercise. Avoid tobacco and illicit drugs, moderation of alcohol. If BMI greater than 25 dietary consult advised. If you have any questions please call or email. [email or web address] Not available 02/03/2020 11:20:10 03/08/2020 culture sent, good vulvar care [email or web address] Not available 03/08/2020 09:52:06 Reason for Referral None Reported. Results Created Date Observation Date Name Description Value Unit Range Abnormal Flag Note LastModifiedBy Organization Detail LastModifiedTime 02/03/20 20 02/05/2020 pap, LB Pap test thin prep Negati ve for Intrae pithel ial Lesion or Malign matt normal ACCES SEAN #: [id number] Sourc e: Cervi mino/E ndoce rvica l LMP: 2019 Date Taken : 02/02 Speci men Type: ThinP rep Vial Date Repor melita: 2019 Clini mino Data: Cytot ech: John Palmao x, CT( CP) Date Repor meilta: 2019 Speci men Adequ acy: Satis facto ry for evalu ation Endoc ervic al/tr ansfo rmati on zone compo nent prese nt Gener al Categ oriza tion: NEGAT MARCOS FOR INTRA EPITH ELIAL LESIO N OR MALIG FELIPA The follo wing tests have been order ed as reque sted and a separ ate repor t will be issue d: Chlam ydia, Gonor rhoea e, and Trich omona s This speci men has been roxanne zed by the ThinP rep Imagi ng Syste m, an inter activ e compu ter syste m which shakeel ts the lab in the [facility] of ThinP rep Pap Test slide s. Follo wing imagi ng, the slide was revie wed by a Cytot echno logis t and/o r Patho logis t. End of t Techn ical servi mg provi ded by [facility] [employer] Patho logis En[employer], d/b/a [facility], [address] [place] [address] John Echeverria MD, Labor ator Dire tor. Case revie wed and diagn osis rende red at [facility] [employer]at[employer]ator Med[employer]s Patho logis [email or web address], [employer], d/b/a [facility], [address] [place] [address] John Echeverria MD, Labor atory Dire tor. CONFI DENTI AL Not Available [facility] ([facility]) [address], [place], [address], 02/05/2020 10:49:42 02/03/20 20 02/05/2020 CT + NG DNA, PCR, unspe cifie d speci men trichomonas vaginalis, aptima (panther) NOT DETECT ED normal DNA testi ng perfo rmed by Trans c[employer] melita Ampli ficat ion (TMA) These resul ts shoul d be inter prete d in light of all clini mino and labor atory findi ngs. This assay is highl y accur ate, but rare false posit marcos and negat marcos resul ts may occur . Posit marcos resul ts in low preva lence popul ation s may requi re re-ev aluat ion. A negat marcos resul t does not precl ude a possi ble infec tion due to a speci men inade quacy or sampl ing error . Test perfo rmed by [employer] Patho [employer] Search, d/b/a [employer] rou, [address], [place] [address] , Claudio Urrutia ra, DO, Labor atory Direc tor. Not Available [facility] ([facility]) [address] [place] [address], [place], [address], 02/05/2020 10:49:43 02/03/20 20 02/05/2020 CT + NG DNA, PCR, unspe cifie d speci men neisseria gonorrhoeae, aptima NOT DETECT ED normal DNA testi ng perfo rmed by [employer] melita Ampli ficat ion (TMA) These resul ts shoul d be inter prete d in light of all clini mino and labor atory findi ngs. This assay is highl y accur ate, but rare false posit marcos and negat marcos resul ts may occur . Posit marcos resul ts in low preva lence popul ation s may requi re re-ev aluat ion. A negat marcos resul t does not precl ude a possi ble infec tion due to a speci men inade quacy or sampl ing error . Test perfo rmed by AssGrabhouseo [employer], d/b/a Path[facility] rou, [address], [place] [address] , Claudio Urrutia ra, , Labor atory Direc tor. Not Available [facility] ([facility]) [address] [place] [address], [place], [address], 02/05/2020 10:49:43 02/03/20 20 02/05/2020 CT + NG DNA, PCR, unspe cifie d speci men chlamydia trachomatis, aptima NOT DETECT ED normal DNA testi ng perfo rmed by Trans c[employer] ion Media melita Ampli ficat ion (TMA) These resul ts shoul d be inter prete d in light of all clini mino and labor atory findi ngs. This assay is highl y accur ate, but rare false posit marcos and negat marcos resul ts may occur . Posit marcos resul ts in low preva lence popul ation s may requi re re-ev aluat ion. A negat marcos resul t does not precl ude a possi ble infec tion due to a speci men inade quacy or sampl ing error . Test perfo rmed by [facility]oc iated Patho logis ts, [employer], d/b/a [facility], [facility] [address], [place] [address] , Claudio Urrutia ra, DO, Labor atory Direc tor. Not Available [facility] [facility] ([facility]) [address] [place] [address] [address], [place], [address], 02/05/2020 10:49:43 02/05/20 20 02/06/2020 polyc ystic ovari an syndr ome panel sex hormone binding globulin (shbg) 12.8 nmol/ L 24.6-1 22.0 low STAGE MALE FEMAL E Tanne r Stage I: 26-18 6 nmol/ L 30-17 3 nmol/ L Tanne r Stage II: 22-16 9 nmol/ L 16-12 7 nmol/ L Tanne r Stage III: 13-10 4 nmol/ L 12-98 nmol/ L Tanne r Stage IV: 11-60 nmol/ L 14-15 1 nmol/ L Tanne r Stage V: 11-71 nmol/ L 23-16 5 nmol/ L Not Available [facility] ([facility]) [address] [facility] [address], [place], [address], 02/10/2020 20:28:33 02/05/20 20 02/06/2020 polyc ystic ovari an syndr ome panel prolactin 11.80 NG/mL 4.79-2 3.30 Not Available [facility] ([facility] [employer]) [facility]0 [facility] [address], [place], [address], 02/10/2020 20:28:33 02/05/20 20 02/06/2020 polyc ystic ovari an syndr ome panel progesterone 5.73 NG/mL Proge stero ne Refer ence Range Healt hy women Folli cular phase 0.057 - 0.893 Ovula tion phase 0.121 - 12.0 Lutea l phase 1.83 - 23.9 Postm enopa use <0.05 - 0.126 Healt hy pregn ant women 1st trime ster 11.0 - 44.3 2nd trime ster 25.4 - 83.3 3rd trime ster 58.7 - 214 Not Available [facility] ([facility] [employer]) [facility]0 [facility] [address], [place], [address], 02/10/2020 20:28:33 02/05/20 20 02/06/2020 polyc ystic ovari an syndr ome panel luteinizing hormone 18.50 mIU/m L LH Refer ence Range Men: 1.7 - 8.6 Women : Folli cular phase 2.4 - 12.6 Ovula tion phase 14.0 - 95.6 Lutea l phase 1.0 - 11.4 Postm enopa use 7.7 - 58.5 Not Available [facility] [employer] [facility] ([facility] [employer]) [facility]0 [facility] [address], [place], [address], 02/10/2020 20:28:33 02/05/20 20 02/06/2020 polyc ystic ovari an syndr ome panel FSH 4.76 mIU/m L FSH Refer ence Range Men: 1.5 - 12.4 Women : Folli cular phase 3.5 - 12.5 Ovula tion phase 4.7 - 21.5 Lutea l phase 1.7 - 7.7 Postm enopa use 25.8 - 134.8 Not Available [facility] ([facility]) [address] [place] [address] [address], [place], [address], 02/10/2020 20:28:33 02/05/20 20 02/06/2020 polyc ystic ovari an syndr ome panel estradiol 45 pg/mL Estra diol Refer ence Range Healt hy women Folli cular phase 12.4 - 233 Ovula tion phase 41.0 - 398 Lutea l phase 22.3 - 341 Postm enopa use <5 - 138 Healt hy pregn ant women 1st trime ster 154 - 3243 2nd trime ster 1561 - 24738 3rd trime ster 8525 - >3000 0 Not Available [facility] ([facility]) [address] [place] [address] [address], [place], [address], 02/10/2020 20:28:33 02/05/20 20 02/06/2020 polyc ystic ovari an syndr ome panel hemoglobin A1C 12.3 % <5.7 high The follo wing HbA1c range s recom deana d by the Ameri can Diabe booker Assoc iatio n (ADA) may be used as an aid in the diagn osis of diabe booker melli tus. HA1c Sugge sted Diagn osis >=6.5 % Diabe tic 5.7% - 6.4% Pre-D iabet ic <5.7% Non-D iabet ic Not Available [facility] ([facility]) [address] [place] [address] [address], [place], [address], 02/10/2020 20:28:33 02/05/20 20 02/06/2020 polyc ystic ovari an syndr ome panel TSH reflex to FT4 1.22 mU/L 0.27-4 .20 Not Available [facility] ([facility]) [address] [place] [address] [address], [place], [address], 02/10/2020 20:28:33 02/05/20 20 02/06/2020 polyc ystic ovari an syndr ome panel DHEA-sulfate 165 ug/dL 99-340 Not Available [facility] ([facility]) [address] [facility] [address], [place], [address], 02/10/2020 20:28:33 02/05/20 20 02/09/2020 polyc ystic ovari an syndr ome panel testosterone , total (female and children) 12.5 NG/dL 10.0-5 2.0 Preme nopau hal 10-52 ng/dL (Grea ter than 18 years ) Postm enopa usal 6-30 ng/dL This test was devel oped and its perfo rmanc e carole cteri stics were deter mined by [facility] clini mino labor atori es. It has not been clear ed or appro bess by the FDA. The labor atory is regul ated under CLIA as quali fied to perfo rm high- compl exity testi ng. This test is used for clini mino purpo ses and shoul d not be regar ded as inves tigat ional or for resea rc. Not Available [facility] ([facility]) [address] [facility] [address], [place], [address], 02/10/2020 20:28:33 02/05/20 20 02/09/2020 polyc ystic ovari an syndr ome panel testosterone free, females or children 3.5 pg/mL 0.9-9. 1 Postm enopa usal 0.6-4 .6 pg/mL The emily ntrat ions of free and bioav ailab le testo stero ne are deriv ed from oleg cruz al expre ssion s based on const ants for the natasha ng of testo stero ne to album in and/o r sex hormo ne natasha ng globu selena. These calcu lated value s may be less accur ate in patie nts with very low album in emily ntrat ions. Not Available [facility] ([facility]) [address] [facility] [address], [place], [address], 02/10/2020 20:28:33 02/05/20 20 02/10/2020 polyc ystic ovari an syndr ome panel 17-hydroxypr ogesterone, hplc-MS/MS 138.46 NG/dL <=206. 00 INTER PRETI VE INFOR MATIO N for 17-Hy droxy proge stero ne in femal es: Folli cular 15 to 70 ng/dL Lutea l 35 to 290 ng/dL Acces s compl ete set of age- and/o r gende r-spe cific refer ence inter vals for this test in the [employer] Test Direc tory ([employer] lab.c om). Test devel oped and carole cteri stics deter mined by [employer] atori es. See Compl iance State ment B: [email or web address] m/CS Perfo rmed By: [employer] [address] [place] [address] Labor atory Direc tor: Lawrence Balbuena do, MD, MS Not Available [facility] ([facility] [employer]) [address], [place], [address], 02/10/2020 20:28:33 02/05/20 20 02/06/2020 estim ated avera ge gluco se estimated average glucose 306 mg/dL [place] ge Gluco se is calcu lated using the equat ion AG = (28.7 x HgbA1 c) - 46.7 based on the guide lines estab maye d by the ADA. Not Available [facility] ([facility] [employer]) [address], [place], [address], 02/10/2020 20:28:33 02/05/20 20 02/06/2020 HIV (1+2) Ab scree n, serum HIV 1/2 Ab screen w/p24ag Nonrea ctive nonrea ctive Not Available [facility] ([facility] [employer]) [address], [place], [address], 02/10/2020 20:28:34 02/05/20 20 02/06/2020 hbcab (hepa titis B core Ab) igm, serum hepatitis B core antibody (hbcab) IgM Nonrea ctive nonrea ctive Not Available [facility] ([facility]) [address] [place] [address] [address], [place], [address], 02/10/2020 20:28:34 02/05/20 20 02/06/2020 HBsAg (hepa titis B surfa ce Ag), serum hepatitis B surface antigen (HBsAg) Nonrea ctive nonrea ctive Not Available [facility] ([facility]) [address] [place] [address] [address], [place], [address], 02/10/2020 20:28:34 02/05/20 20 02/06/2020 hepat itis C virus Ab, serum hepatitis C antibody (HCV) IgG Nonrea ctive nonrea ctive Not Available [facility] ([facility]) [address] [place] [address] [address], [place], [address], 02/10/2020 20:28:35 02/05/20 20 02/08/2020 RPR (rapi d plasm a reagi n), serum RPR (non-trepone mal) reflex to confirmation Nonrea ctive nonrea ctive Not Available [facility] ([facility]) [address] [place] [address] [address], [place], [address], 02/10/2020 20:28:35 02/05/20 20 02/09/2020 hsv-2 igg Ab, serum herpes simplex virus (hsv) antibody type 2, IgG 1.23 index 0.00-0 .89 high Not Available [facility] ([facility]) [address] [place] [address] [address], [place], [address], 02/10/2020 20:28:35 02/05/20 20 02/10/2020 hbeab (hepa titis B envel ope Ab), serum hepatitis BE antibody Nonrea ctive Refer ence range : Nonre activ e Test Perfo rmed By [facility] [phone], CLIA [id number] [facility] [address] [facility] ,[place], [place], aDvida Lipscomb M.D., Ph.D. , [facility] of Labor atori es Not Available [facility] ([facility]) [address] [place] [address] [address], [place], [address], 02/10/2020 20:28:36 02/05/20 20 02/06/2020 hsv (1+2) igg Ab, serum herpes simplex virus (hsv) IgG result note SEE COMMEN T HSV IgG Refer ence Range < 0.9 Index Negat marcos 0.91 - 1.09 Index Equiv ocal > or = 1.10 Index Posit marcos Not Available [facility] ([facility]) [address] [place] [address] [address], [place], [address], 02/10/2020 20:28:36 03/08/20 20 03/10/2020 bacte rial vagin osis panel , vagin al top line result Abnorm al abnormal Not Available [facility] ([facility]) [address] [place] [address] [address], [place], [address], 03/10/2020 17:29:57 03/08/20 20 03/10/2020 bacte rial vagin osis panel , vagin al interpretati on SEE COMMEN T The organ isms detec melita in this speci men are indic ative of abnor mal micro barbara . Detec tion of organ isms that are assoc iated with bacte rial vagin osis (BV) sugge sts the prese nce of disea se. BV assoc iated organ isms inclu de Gardn erell a vagin barrera, Atopo bium vagin ae, Mycop lasma homin is, Ureap lasma ureal yticu m, Megas phaer a 1 & 2, BVAB2 and Mobil uncus speci es. Becau se these organ isms can be const ituen ts of the prachi l vagin al micro barbara , their prese nce is not defin itive proof of BV. These resul ts are meant to aid in the diagn osis and manag ement of BV and shoul d be inter prete d in the bj xt of other test resul ts and clini mino findi ngs. Not Available [facility] ([facility]) [address] [place] [address] [address], [place], [address], 03/10/2020 17:29:57 03/08/20 20 03/10/2020 bacte rial vagin osis panel , vagin al atopobium vaginae Normal normal Not Available [facility] ([facility]) [address] [place] [address] [address], [place], [address], 03/10/2020 17:29:57 03/08/20 20 03/10/2020 bacte rial vagin osis panel , vagin al gardnerella vaginalis Elevat ed abnormal Not Available [facility] ([facility]) [address] [place] [address] [address], [place], [address], 03/10/2020 17:29:57 03/08/20 20 03/10/2020 bacte rial vagin osis panel , vagin al bvab2 Normal normal Not Available [facility] ([facility]) [address] [place] [address] [address], [place], [address], 03/10/2020 17:29:57 03/08/20 20 03/10/2020 bacte rial vagin osis panel , vagin al megasphaera 1 Elevat ed abnormal Not Available [facility] ([facility]) [address] [place] [address] [address], [place], [address], 03/10/2020 17:29:57 03/08/20 20 03/10/2020 bacte rial vagin osis panel , vagin al megaspherea 2 Not Detect ed normal Not Available [facility] ([facility]) [address] [place] [address] [address], [place], [address], 03/10/2020 17:29:57 03/08/20 20 03/10/2020 bacte rial vagin osis panel , vagin al lactobacillu s crispatus Not Detect ed normal Not Available [facility] ([facility]) [address] [place] [address] [address], [place], [address], 03/10/2020 17:29:57 03/08/20 20 03/10/2020 bacte rial vagin osis panel , vagin al lactobacillu s gasseri Normal normal Not Available [facility] ([facility]) [address] [place] [address] [address], [place], [address], 03/10/2020 17:29:57 03/08/20 20 03/10/2020 bacte rial vagin osis panel , vagin al lactobacillu s iners ql Normal normal Not Available [facility] ([facility]) [address] [place] [address] [address], [place], [address], 03/10/2020 17:29:57 03/08/20 20 03/10/2020 bacte rial vagin osis panel , vagin al lactobacillu s jensenii ql Not Detect ed normal Not Available [facility] ([facility]) [address] [place] [address] [address], [place], [address], 03/10/2020 17:29:57 03/08/20 20 03/10/2020 bacte rial vagin osis panel , vagin al mobiluncus mulieris Not Detect ed normal Not Available [facility] ([facility]) [address] [place] [address] [address], [place], [address], 03/10/2020 17:29:57 03/08/20 20 03/10/2020 bacte rial vagin osis panel , vagin al mobiluncus curtisii Detect ed abnormal Not Available [facility] ([facility]) [address] [place] [address] [address], [place], [address], 03/10/2020 17:29:57 03/08/20 20 03/10/2020 bacte rial vagin osis panel , vagin al mycoplasma hominis Detect ed abnormal Not Available [facility] ([facility]) [address] [place] [address] [address], [place], [address], 03/10/2020 17:29:57 03/08/20 20 03/10/2020 bacte rial vagin osis panel , vagin al ureaplasma urealyticum Not Detect ed normal Not Available [facility] ([facility]) [address] [place] [address] [address], [place], [address], 03/10/2020 17:29:57 03/14/20 21 03/14/2021 CT/GC AND TRICH OMONA S VAGIN BARRERA (RRNA ), SWAB chlamydia trachomatis, PCR NEGATI VE negati ve Not Available [facility] (Lab) [address], [place], [address], 03/15/2021 16:35:27 03/14/20 21 03/14/2021 CT/GC AND TRICH OMONA S VAGIN BARRERA (RRNA ), SWAB neisseria gonorrhoeae, PCR NEGATI VE negati ve Not Available [facility] (Lab) [address], [place], [address], 03/15/2021 16:35:27 03/14/20 21 03/14/2021 CT/GC AND TRICH OMONA S VAGIN BARRERA (RRNA ), SWAB trichomonas vaginalis ribosomal RNA (rrna) NEGATI VE negati ve Not Available [facility] (Lab) [address], [place], [address], 03/15/2021 16:35:27 03/14/20 21 03/14/2021 DHEA SULFA TE DHEA-sulfate 131 ug/dL Femal e Range s Age(y ) Range (ug/d L) 10-15 34-28 0 15-20 65-36 8 20-25 148-4 07 25-35 99-34 0 35-45 61-33 7 45-55 35-25 6 55-65 19-20 5 65-75 9-246 > 75 12-15 4 Not Available [facility] (Lab) [address], [place], [address], 03/20/2021 15:28:39 03/14/20 21 03/14/2021 ESTRA DIOL estradiol 21.9 pg/mL This assay was perfo rmed using [employer] ratio n reage nts and test kits. Value s obtai willow with other assay metho ds or kits canno t be used inter vera eably . Femal e Estra diol Range s: Folli cular phase 12.4- 233 pg/mL Ovula tion phase 41.0- 398 pg/mL Lutea l phase 22.3- 341 pg/mL Postm enopa usal< 5-138 pg/mL Healt hy Pregn ant Women 1st Trime ster1 54-32 43 pg/mL 2nd Trime ster1 561-2 1280 pg/mL 3rd Trime ster8 525-> 26313 pg/mL Not Available [facility] (Lab) [address], [place], [address], 03/20/2021 15:28:39 03/14/20 21 03/14/2021 FSH FSH 5.5 mIU/m L This assay was perfo rmed using [employer] reage nts and test kits. Value s obtai willow with other assay metho ds or kits canno t be used inter vera eably . Femal es Folli cular : 3.5-1 2.5 mIU/m L Ovula tion: 4.7-2 1.5 mIU/m L Lutea l: 1.7-7 .7 mIU/m L Postm enopa use: 25.8- 134.8 mIU/m L Not Available [facility] (Lab) [address] , [place], [address], 03/20/2021 15:28:40 03/14/20 21 03/14/2021 PROLA CTIN prolactin, total 12.40 NG/mL 4.79-2 3.30 This assay was perfo rmed using [employer] reage nts and test kits. Value s obtai willow with other assay metho ds or kits canno t be used inter vera eably . Not Available [facility] (Lab) [address], [place], [address], 03/20/2021 15:28:40 03/14/20 21 03/14/2021 TSH, REFLE X FREE T4 TSH 0.99 uIU/m L 0.30-5 .33 Not Available [facility] (Lab) [address], [place], [address], 03/20/2021 15:28:41 03/14/20 21 03/14/2021 HEMOG LOBIN A1C hemoglobin A1C 14.3 % 0-5.6 high The Ameri can [employer]abe book[employer] iatio n recom mends that a prima ry goal of thera py josie d be a HBA1C of < 7% and that physi cians shoul d reeva luate the treat ment regim en in patie nts with HBA1C value s consi stent ly > 8%. <5.7% Prachi l 5.7 - 6.4% Incre ased risk for diabe booker >=6.5 % Diagn ostic of diabe booker <7.0% Goal of thera py >8.0% Actio n sugge sted Not Available [facility] (Lab) [address] , [place], [address], 03/20/2021 15:28:41 09/28/03/14/2021 TESTO STERO NE, FREE( DIALY SIS) AND TOTAL (LC/M S/MS) testosterone , total 15 NG/dL 2-45 For addit ional minar taryn davis refer to http: //fauzia murray stdia gnost ics.c om/fa q/Tot al Testo stero neLCM SMS (This link is being provi ded for infor matalisa nal/e ducat ional purpo ses only. ) This test was devel oped and its roxanne tical perfo rmanc e carole cteri stics have been deter mined by [facility]. It has not been clear ed or appro bess by the FDA. This assay has been valid ated pursu ant to the CLIA regul ation s and is used for clini mino purpo ses. Not Available [facility] (Lab) [address], [place], [address], 03/20/2021 15:28:42 03/14/2003/14/2021 TESTO STERO NE, FREE( DIALY SIS) AND TOTAL (LC/M S/MS) testosterone , free 3.7 pg/mL 0.1-6. 4 This test was devel oped and its roxanne tical perfo rmanc e carole cteri stics have been deter mined by [facility]. It has not been clear ed or appro bess by the FDA. This assay has been valid ated pursu ant to the CLIA regul ation s and is used for clini mino purpo ses. Perfo rming Organ izati on Marilu brambila n: Site ID: [id number] Name: [employer] [facility]-Aurelio kalpesh [address] Addre ss: [id number] [place] [address] Direc tor: Yelitza sood M.D. Not Available [facility] (Lab) [address], [place], [address], 03/20/2021 15:28:42 07/10/19 24 07/10/2023 IMAGE GUIDE D PAP AND HPV REGAR DLESS image guided Pap, HPV regardless of Pap result SEE RESULT S BELOW CASE REPOR T: Cytol ogy Gynec ologi mino Repor t Case: [id number] Autho catejennie mann Provi carmel: Lokesh laird , Dinora Us cted: 07/10 1600 AUTO CLUB SAFETY PROGRAM COORDINATOR Order ing Locat ion: [place] [facility] Recei bess: 07/11 0905 First Scree n: Laura vásquez, Issa sumner, CT Speci men: Sena borjas Pap - Image d, Cervi x STATE MENT OF ADEQU ACY: Satis facto ry for evalu ation Trans forma tion zone compo nent prese nt FINAL DIAGN OSIS: Negat marcos for Intra epith elial Lesio n or Kain stanley (NIL) . Elect wil fisher jennie d by Laura vásquez, Issa sumner, CT on 2023 at 7:58 PM ----- ----- ----- ----- ----- ----- ----- ----- ----- ----- ----- ----- ----- ----- ----- ----- ----- ---- HPV RESUL TS: HPV mRNA E6/E7 : No HPV mRNA Detec melita NOTE: This high risk HPV mRNA assay detec ts fourt een high- risk HPV types (16, 18, 31, 33, 35, 39, 45, 51, 52, 56, 58, 59, 66, 68) witho ut diffe renti ation . COMME NT: This speci men was revie wed by a Cytot echno logis t and/o r Patho logis t (as indic ated in this repor t) after evalu ation using the Thinp rep Imagi ng Syste m. CLINI MINO INFOR MATIO N: Menst rual Statu s: LMP (if appli cable ): Clini mino Histo ry/Pr eviou s Pap: Type of Neopl elisabet (if appli cable ): Signi fican t Clini mino Findi ngs: Other Histo ry: Hormo emperatriz (if appli cable ): PAP EDUCA SANDRA L NOTE: The Pap Test is a scree suad test with an inher ent false negat marcos rate. Liqui d-bas ed sampl ing may decre ase, but will not elimi mariano, false negat marcos resul ts. A negat amrcos resul t does not precl ude the prese nce and/o r devel opmen t of disea se, since the prese nce of abnor mal cells in the sampl e depen ds on the locat ion of the lesio n and sampl ing techn ique. [place] nued regul ar scree suad is the best metho d of cance r preve ntion . If repor melita cytol ogic findi ng do not corre late with physi mino and/o r histo rical findi ngs, furth er inves tigat ion is recom deana d, as clini yolis mendez nted. Not Available [facility] (Lab) [address], [place], [address], 07/12/2023 21:01:20 07/10/19 24 07/10/2023 CT/GC (BILLIE) , THINP REP VIAL chlamydia trachomatis, PCR Negati ve negati ve Not Available [facility] (Lab) [address], [place], [address], 07/12/2023 21:01:21 07/10/19 24 07/10/2023 CT/GC (BILLIE) , THINP REP VIAL neisseria gonorrhoeae, PCR Negati ve negati ve Not Available [facility] (Lab) [address], [place], [address], 07/12/2023 21:01:21 07/10/19 24 07/10/2023 TRICH OMONA S VAGIN BARRERA (RRNA ) trichomonas vaginalis ribosomal RNA (rrna) Negati ve negati ve Not Available [facility] (Lab) [address] [place], [address], 07/12/2023 21:01:21 Result Notes None recorded. Procedures Surgical History Date Name Laterality Status Provider Name and Address Organization Details Recorded Time 07/10/2023 Date of Last Pap Smear completed Adelina Lara [facility] 08/06/2023 17:54:38 Imaging Results None recorded. Procedure Notes None recorded. Medical Equipment None Reported. Allergies No known drug allergies Medications Name Sig Start Date Stop Date Status Note LastModified by Organization Details LastModified Time cyclobenzap rine 10 mg tablet 03/14 completed Not Available Not Available Not Available amoxicillin 500 mg capsule 02/02 completed Not Available Not Available Not Available fluconazole 100 mg tablet 07/09 completed Not Available Not Available Not Available atorvastati n 40 mg tablet TAKE 1 TABLET BY MOUTH ONCE DAILY active Not Available Not Available No t Available potassium chloride ER 10 mEq capsule,ext ended release 07/09 completed Not Available Not Available Not Available clindamycin HCl 300 mg capsule TAKE 1 CAPSULE BY MOUTH TWICE DAILY FOR 7 DAYS 03/14 completed Not Available Not Available Not Available cetirizine 10 mg tablet 03/14 completed Not Available Not Available Not Available ibuprofen 800 mg tablet TAKE 1 TABLET BY MOUTH EVERY 8 HOURS NEEDED FOR PAIN 07/09 completed Not Available Not Available Not Available Lidocaine Viscous 2 % mucosal solution GARGLE AND SPIT 5 MLS BY MOUTH FOUR TIMES A DAY NEEDED FOR PAIN 03/14 completed Not Available Not Available Not Available nystatin 100,000 unit/gram topical ointment MIX EQUAL AMOUNTS OF NYSTATIN AND TRIAMCINO LONE OINTMENTS AND APPLY TO VAGINAL AREA TWICE DAILY 03/14 completed Not Available Not Available Not Available fluconazole 150 mg tablet TAKE 1 TABLET BY MOUTH A ONE TIME DOSE 07/09 completed Not Available Not Available Not Available hydrocodone 5 mg-acetamin ophen 325 mg tablet TAKE 1 TO 2 TABLETS BY MOUTH EVERY 4 TO 6 HOURS NEEDED MAX 8 PER DAY 07/09 completed Not Available Not Available Not Available spironolact one 100 mg tablet TAKE 1 TABLET BY MOUTH ONCE DAILY WITH MEALS 2023 active Not Available Not Available Not Avai lable penicillin V potassium 500 mg tablet 03/14 completed Not Available Not Available Not Available metronidazo le 500 mg tablet 02/02 completed Not Available Not Available Not Available ciprofloxac in 500 mg tablet TAKE 1 TABLET BY MOUTH EVERY 12 HOURS 03/14 completed Not Available Not Available Not Available sulfamethox azole 800 mg-trimetho prim 160 mg tablet TAKE 1 TABLET BY MOUTH EVERY 12 HOURS 07/09 completed Not Available Not Available Not Available nystatin-tr iamcinolone 100,000 unit/gram-0 .1 % topical ointment APPLY TO THE AFFECTED AREA(S) BY TOPICAL ROUTE 2 TIMES PER DAY 03/14 completed Not Available Not Available Not Available pravastatin 80 mg tablet active Not Available Not Available Not Available metoclopram duane 5 mg tablet TAKE 1 TABLET BY MOUTH EVERY 6 HOURS NEEDED FOR NAUSEA AND VOMITING FOR UP TO 8 DOSES active Not Available Not Available No t Available LiftagoToExploredge Ultra Test strips active Not Available Not Available Not Available cephalexin 500 mg capsule 02/02 completed Not Available Not Available Not Available triamcinolo ne acetonide 0.1 % topical ointment MIX EQUAL AMOUNTS OF TRIAMCINO LONE WITH NYSTATIN AND APPLY TO VAGINAL AREA TWICE DAILY 03/14 completed Not Available Not Available Not Available losartan 25 mg tablet 07/09 completed Not Available Not Available Not Available alcohol swabs 07/09 completed Not Available Not Available Not Available furosemide 20 mg tablet 03/14 completed Not Available Not Available Not Available insulin lispro (U-100) 100 unit/mL subcutaneou s solution INJECT 70 UNITS DAILY DIRECTED active Not Available Not Available No t Available ondansetron 4 mg disintegrat ing tablet DISSOLVE 1 TABLET IN MOUTH EVERY 6 HOURS NEEDED FOR NAUSEA AND VOMITING 07/09 completed Not Available Not Available Not Available fluticasone propionate 50 mcg/actuati on nasal spray,suspe nsion 03/14 completed Not Available Not Available Not Available naproxen 500 mg tablet 03/14 completed Not Available Not Available Not Available spironolact one 50 mg tablet Take 1 tablet every day by oral route as directed for 30 days. 08/06 completed Not Available Not Available Not Available amoxicillin 875 mg-potassiu m clavulanate 125 mg tablet TAKE 1 TABLET BY MOUTH EVERY 12 HOURS 03/14 completed Not Available Not Available Not Available nitrofurant oin monohydrate /macrocryst als 100 mg capsule 07/09 completed Not Available Not Available Not Available Fish Oil 340 mg-1,000 mg capsule 07/09 completed Not Available Not Available Not Available FeroSul 325 mg (65 mg iron) tablet TAKE 1 TABLET BY MOUTH ONCE DAILY WITH BREAKFAST active Not Available Not Available No t Available Lantus Solostar U-100 Insulin 100 unit/mL (3 mL) subcutaneou s pen INJECT 10 UNITS SUBCUTANE OUSLY NIGHTLY. DISCARD EACH PEN 28 DAYS AFTER OPENING active Not Available Not Available No t Available Humalog KwikPen (U-100) Insulin 100 unit/mL subcutaneou s INJECT 3 UNITS SUBCUTANE OUSLY THREE TIMES DAILY WITH MEALS. DISCARD AFTER 28 DAYS active Not Available Not Available No t Available Advocate Syringes 1 mL 31 gauge x 5/16 07/09 completed Not Available Not Available Not Available TRUEplus Insulin 0.3 mL 30 gauge x 5/16 syringe USE SYRINGE ONCE DAILY active Not Available Not Available No t Available Jencycla 0.35 mg tablet Take 1 tablet every day by oral route. 07/09 completed Not Available Not Available Not Available Dexcom G6 Sensor device active Not Available Not Available Not Available BD Akiko 2nd Gen Pen Needle 32 gauge x 5/32 USE 1 NEW PEN NEEDLE 4 TIMES DAILY active Not Available Not Available No t Available FreeStyle Sonia 2 Sensor kit USE 1 SENSOR EVERY 14 DAYS FOR [facility] B[facility] GLUCOSE MONITOR active Not Available Not Available No t Available Vitals Date Recorded Body weight Systolic blood pressure Diastolic blood pressure Provider Name and Address Organization Details Last Updated DateTime 03/14/2021 54059.19 g 127 mm[Hg] 82 mm[Hg] Lalita Robbins [facility] 03/14/2021 12:01:23 Date Recorded Body height Body mass index (BMI) Body weight Systolic blood pressure Diastolic blood pressure Provider Name and Address Organization Details Last Updated DateTime 02/03/2020 166.37 cm 27 kg/m2 73700.74 g 114 mm[Hg] 76 mm[Hg] Itzel Brooks [facility] 10:32:54 Date Recorded Body height Body mass index (BMI) Body weight Systolic blood pressure Diastolic blood pressure Provider Name and Address Organization Details Last Updated DateTime 07/09/2023 166.37 cm 24.4 kg/m2 84533.26 g 120 mm[Hg] 79 mm[Hg] [facility]ina [facility] 4 18:21:15 Date Recorded Body height Body mass index (BMI) Body weight Systolic blood pressure Diastolic blood pressure Provider Name and Address Organization Details Last Updated DateTime 03/08/2020 166.37 cm 26.7 kg/m2 72625.56 g 117 mm[Hg] 75 mm[Hg] Itzel Middletontz [facility] 0 09:43:29 Date Recorded Body height Body mass index (BMI) Body weight Systolic blood pressure Diastolic blood pressure Provider Name and Address Organization Details Last Updated DateTime 08/06/2023 166.37 cm 24.7 kg/m2 68204.45 g 109 mm[Hg] 75 mm[Hg] Adelina [facility] 4 17:53:40 Social History Question Answer Notes LastModified by Chroma Details LastModified Time Tobacco Smoking Status Never Smoker Not Available [facility] 04/19/2020 03:28:11 In The 14 Days Before Symptom Onset, Have You Had Close Contact With A Laboratory-confirm ed COVID-19 While That Case Was Ill? No Information n ot available 07/09/2023 In The 14 Days Before Symptom Onset, Have You Had Close Contact With A Person Who Is Under Investigation For COVID-19 While That Person Was Ill? No Information not available 07/09/2023 Have You Been To An Area Known To Be High Risk For COVID-19? No Information not available 07/09/2023 What Was The Date Of Your Most Recent Tobacco Screening? 03/08/2020 [id number] Information not available 04/19/2020 How Much Tobacco Do You Smoke? No [id number] Information not available 04/19/2020 Sex: Unknown Functional Status Question Answer Note LastModified by Chroma Details LastModified Time What is your level of alcohol consumption? Occasional [id number] Information not available 04/19/2020 Do you or have you ever used smokeless tobacco? Never used smokeless tobacco [id number] Information not available 04/19/2020 Do you or have you ever used e-cigarettes or vape? Never used electronic cigarettes [id number] Information not available 04/19/2020 What is your exercise level? Occasional [id number] Information not available 04/19/2020 Mental Status None recorded. Family History Relationship Description Onset Age of this Age Resolved Age Notes LastModified by Organization Details LastModified Time Father Diabetes mellitus [email or web address] Not available 02/02 10:34:33 Mother Diabetes mellitus Not available 02/02 10:34:33 Mother Hypertensive disorder [email or web address] Not available 02/02 10:34:48 Maternal Grandmother Malignant tumor of breast [email or web address] Not available 02/02 10:34:56 Medical History Condition Response Diabetes Y History of STI Y High Cholesterol Y Gynecological History Statement/Question Response Date of LMP 08/02/2023 STIs/STDs Yes Was last menstrual period normal Y HPV Vaccine Y Duration of Flow (days) 5 Current Control Method None Are cycles usually normal N Sexually Active? Y Menses Monthly Y Date of Last Pap Smear 07/10/2023 Sexual Problems? N LMP Definite Obstetrics History GPAL:G 0 P 0 0 0 0 Past Encounters Encounter ID Performer Location Encounter Start Date Encounter Closed Date Diagnosis/Indication Diagnosis SNOMED-CT Code Diagnosis ICD10 Code [id number] [address] [place] [address] 02/03/2020 10:09:31 02/03/2020 12:37:[facility] [address] [place] [address] 03/08/2020 09:30:26 03/08/2020 10:00:39 Candidiasis of vagina 08563312 B37.3 [id number] Indigo Rosado MD [facility] [address] [address] 03/14/2021 11:44:47 03/14/2021 13:23:52 Candidal vulvovaginitis 86472193 B37.3 Type 2 erica betes mellitus 08895491 E11.9 Venereal d isease screening 231104638 Z11.3 Irregular periods 536574 07 N92.6 Female hirsutism 1016466 9 L68.0 [id number] Yamilka Sharif , [facility] [address] [address] 07/09/2023 18:18:58 07/11/2023 12:09:48 Gynecologic examination 08401173 Z01.419 Take Calcium with Vitamin D 1200mg daily if not receiving in daily diet. It is strongly advised to have an annual flu shot and up can obtain at most pharmacies . If you have not had a TDap shot in the last 10 years you should obtain one as well. Discussed with patient & provided with informatio n regarding Gardisil vaccine to prevent the 4 strains for HPV that cause cervical cancer if under age 26. Encourage safe sexual practices, to use condoms and limit partners if not already in a monogamous relationsh ip. Do monthly self breast exams. Have mammogram yearly or every other year depending on family history. BRCA testing is now available for patients with strong genetic history of female cancer. If interested contact the office. Engage in daily exercise of low impact aerobic exercise 45-60 minutes 4-5 times weekly. Avoid tobacco and illicit drugs as well as using moderation with alcohol intake less than 1-2 8 oz beverages daily. This lifestyle behavior pattern will lead to less health conditions and longer life span. If BMI greater than 25 weight watchers or dietary consult advised. Patient received above instructio ns, and questions have been answered. If you have any questions please call or respond to this email. Patient was made aware of the patient portal and may obtain a paper copy of today's plan if desired. Pap/hpv sentSTD Screen declinedGe netic Screen discussedC olon Screen naDexa Screen naRoutine Labs UTD Female hirsutism 4509563 9 L68.0 Today we discussed trial of low dose spironolac tone for blocking androgen levels and decreasing the amount of hairs that become active coarse dark hairs in areas more known in male characteri stics than female. We did discuss that any active follicles now would likely respond well to laser hair removal. She voices understand ing and agreeable to this trial with a med f/u x 4-6wks The other option we could trial moving forward would be a control containing drospireno ne progestin which can also achieve the same goals and may actually work better. Counseled on medication R/B's, Most common side effects, & use. All questions were answered to patient satisfacti on. [id number] Yamilka Sharif , [facility] [address] [address] 08/06/2023 17:41:15 08/06/2023 18:43:58 Female hirsutism 21449167 L68.0 L70.0 Today we discussed increase of this medication to full 100mg for both hirsutism and trial of low dose spironolac tone for blocking androgen levels and decreasing the amount of hairs that become active coarse dark hairs in areas more known in male characteri stics than female. We did discuss that any active follicles now would likely respond well to laser hair removal. She voices understand ing and agreeable to this trial with a med f/u x 4-6wks The other option we could trial moving forward would be a control containing drospireno ne progestin which can also achieve the same goals and may actually work better. Counseled on medication R/B's, Most common side effects, & use. All questions were answered to patient satisfacti on. RTO x 3-4mos med checkKeep us updated on Endocrinol ogist in case any medication s we are prescribin g need to be changed. Time spent in visit is a total of 22 mins with at least 50% of visit consisting of counseling and review of plan of care. Health Concerns Section Related Observation LastModified by Organization Detai ls LastModified Time None Recorded Concern Status LastModified by Organization Details LastModified Time None Recorded Advance Directives Directive None Recorded Payers Encounter Date Sequence Insurance Name Policy Number Policy Mcfarlane Covered Member ID Mcfarlane Member ID Guarantor Name 02/03/2020 1 [facility] (MEDICAID HMO) [id number] Corbya Grand Rivers [id number] Moshe Grand [place] 03/08/2020 1 [facility] (MEDICAID HMO) [id number] Corbya Grand [place] [id number] Corbya Grand [place] 03/14/2021 1 [facility] (MEDICAID HMO) [id number] Corbya Grand [place] [id number] Moshe Sy 07/09/2023 1 [facility] (MEDICAID HMO) [id number] Moshe Sy [id number] Moshe Sy 08/06/2023 1 [place] [id number] Moshe Sy [id number] Moshe Delarosan 08/06/2023 2 [place] [facility] [employer] Moshe Sy [id number] Moshe Sy Notes Date Note Type Note Provider Name and Address Organization Details Recorded Time 02/03/2020 text/html Annual GYNReport ed bypatient.Notes:woul d like std test, hx of infertility x 8 years, type 1 diabetes hga1c over 10, hx abnl hair growth on face on chest, regular cycles, no bcm, moderate exercise, does sbe Zofia Munguia CNM [address], [place], [address], [facility] 02/03/2020 11:20:24 03/08/2020 text/html Vaginal/Vulvar ProblemReported bypatient.Notes:itch ing and increase in d/c no odor Zofia Munguia CNM [address], [place], [address], [facility] 03/08/2020 09:52:22 03/14/2021 text/html Pt is a 30yo G0 here complaining of symptoms of a vaginal infection. Symptoms include vaginal discharge, thick white, for a week, and itching. tried monistat. DM2- uncontrolled per pt.. Denies fever, abdominal pain. would like std testing. Also complains of periods being irregular, skips months, and has facial hair. Kind of wants to TTC. Additional concerns: sexually active:y contraception:none Indigo Rosado MD [address], [place], [address], [facility] 03/14/2021 13:19:42 07/09/2023 text/html Annual GYNReport ed bypatient.Menstrual cycle:Normal menses Urinary symptoms:No hematuria; No incontinence Vulva:No genital lesion Vagina:Normal vaginal discharge Breast:No breast pain; No breast lump; No nipple discharge Current Contraception: control not practiced Sexual complaints:No sexual complaints; No pain during intercourse; Normal libido Menopausal Symptoms:No menopausal symptoms; Normal vaginal lubrication Psychological symptoms:No depression; No anxiety; No PMDD Preventive measures:Encourage self breast examination; Encourage regular exercise; Encourage no tobacco use; Encourage regular mammograms starting age 40; Followed with yearly pap smears Would like to discuss PCOS and hirsutism Yamilka Sharif [facility] [address], [place], [id number], [facility] 07/11/2023 09:11:27 08/06/2023 text/html Here today for medication check of Spironolactone. Yamilka Sharif [facility] [address], [place], [address], [facility] 08/06/2023 18:43:35 OBGyn Episode No OBEpisode recorded.
[2024-11-04] VITALS (19 sets, daily range): BP systolic 171–182; BP diastolic 95–156; PULSE 98–104; RESP 10–22; TEMP 37.2; O2SAT 96–100
--- NOTE | 2024-11-04 00:24 | ED_ITS ---
HPI - Dizziness General Chief Complaint: Dizziness <ANITA Longo Last Filed: 11/04/24 02:38> Stated Complaint: dizziness, n/v <ANITA Longo Last Filed: 11/04/24 02:38> Time Seen by Provider: 11/04/24 00:19 <Nga Ledezma PA-C - Last Filed: 11/04/24 02:38> History of Present Illness HPI Narrative: 34-year-old female with history of type 2 diabetes presents to the emergency department for nausea, vomiting and lightheadedness for the past 2 days. Patient states she believe she ate bad [place] food which is a cause of her symptoms. She states she has been having difficulty keeping down food and fluids. States she has had 3 episodes of diarrhea since the onset of symptoms. She feels lightheaded like she is about to pass out when she was receiving a lying to sitting position. She denies focal abdominal pain. States she does get chest tightness and shortness of breath when she is about to vomit. She denies fever, dysuria or hematuria. She started her menstrual cycle today. No prior abdominal surgeries. <ANITA Longo Last Filed: 11/04/24 02:38> Related Data Home Medications: Home Medications ?Medication ?Instructions ?Recorded ?Confirmed ?Last Taken ?Type insulin lispro 100 unit/mL 2 unit continuous subcutaneous 12/21/19 01/28/21 Unknown History subcutaneous solution infusion DIRECTED dapagliflozin propanediol 10 mg 10 mg PO DAILY 07/20/22 07/20/22 Unknown History tablet (Farxiga) metformin 500 mg tablet,extended 500 mg PO DAILY 07/20/22 07/20/22 Unknown History release 24hr (osmotic) <ANITA Longo Last Filed: 11/04/24 02:38> Allergies/Adverse Reactions: Allergies Allergy/AdvReac Type Severity Reaction Status Date / Time Penicillins Allergy Itching Verified 05/27/23 08:00 <ANITA Longo Last Filed: 11/04/24 02:38> Review of Systems 2 Review of Systems: All systems reviewed & are unremarkable except as noted in HPI and below <Nga Ledezma PA-C - Last Filed: 11/04/24 02:38> [facility] Past Medical History Medical History: Medical History Type 2 diabetes mellitus Diagnosed 01/16/2002 Type 1 diabetes Hypercholesterolemia <Nga Ledezma PA-C - Last Filed: 11/04/24 02:38> Surgical History Surgical History: Surgical History No pertinent past surgical history <Nga Ledezma PA-C - Last Filed: 11/04/24 02:38> Social History Social History: Social History Smoking status: Never smoker Substance use type: marijuana Other substance usage details: regular/semi-regular Occupation/Education: occupation 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 EYES: PERRLA and EOMI. ENT: Nares clear, no rhinorrhea or epistaxis. Mucous membranes dry NECK: Supple. CHEST: Clear to auscultation. No respiratory distress. HEART: Regular rate and rhythm. No murmur heard. Normal peripheral pulses. ABDOMEN: Soft, nontender, nondistended, normal active bowel sounds. No rebound, guarding or rigidity. No CVA tenderness EXTREMITIES: Normal range of motion. No edema. SKIN: Warm, dry, no rash. NEURO: No focal deficits. Alert and oriented x3 <Nga Ledezma PA-C - Last Filed: 11/04/24 02:38> Course Reevaluation(s) Reevaluation #1: Patient feeling much better. Tolerating p.o. without issues. Repeat blood sugar under 400. Counseled to follow-up with her doctor to make sure she can get her blood sugar under better control, given prescriptions for nausea medicine, and return precautions. <Maryam Coyle MD - Last Filed: 11/04/24 03:38> Vital Signs Vital signs: Vital Signs Temperature 99 F 11/03/24 23:30 Pulse Rate 113 H 11/03/24 23:30 Respiratory Rate 18 11/03/24 23:30 Blood Pressure 128/84 11/03/24 23:30 Pulse Oximetry 100 11/03/24 23:30 Oxygen Delivery Room Air 11/03/24 23:30 Temperature 99 F 11/03/24 23:30 Pulse Rate 99 11/04/24 02:15 Respiratory Rate 18 11/03/24 23:30 Blood Pressure 128/84 11/03/24 23:30 Pulse Oximetry 100 11/03/24 23:30 Oxygen Delivery Room Air 11/03/24 23:30 <Nga Ledezma PA-C - Last Filed: 11/04/24 02:38> Vital Signs Temperature 99 F 11/03/24 23:30 Pulse Rate 113 H 11/03/24 23:30 Respiratory Rate 18 11/03/24 23:30 Blood Pressure 128/84 11/03/24 23:30 Pulse Oximetry 100 11/03/24 23:30 Oxygen Delivery Room Air 11/03/24 23:30 Temperature 99 F 11/03/24 23:30 Pulse Rate 99 11/04/24 02:15 Respiratory Rate 18 11/03/24 23:30 Blood Pressure 128/84 11/03/24 23:30 Pulse Oximetry 100 11/03/24 23:30 Oxygen Delivery Room Air 11/03/24 23:30 <Maryam Coyle MD - Last Filed: 11/04/24 03:38> Procedures EJ/Peripheral Line Arm L: EJ/Peripheral Line Date: 11/04/24 <Maryam Coyle MD - Last Filed: 11/04/24 03:38> Skin Cleansed in Sterile Fashion: Yes <Maryam Coyle MD - Last Filed: 11/04/24 03:38> Ultrasound Guided: Yes <Maryam Coyle MD - Last Filed: 11/04/24 03:38> Size (gauge): 18 <Maryam Coyle MD - Last Filed: 11/04/24 03:38> IV Secured and Dressing Applied: Yes <Maryam Coyle MD - Last Filed: 11/04/24 03:38> Patient Tolerated Procedure: well and no complications <Maryam Coyle MD - Last Filed: 11/04/24 03:38> MDM - Dizziness MDM Narrative Medical decision making narrative: 34-year-old female with history of type 2 diabetes presents emergency department for nausea, vomiting and lightheadedness for the past 2 days. Patient states she believe she had a bad [place] food which caused her symptoms. On arrival to the ED patient's vital signs remarkable for tachycardia of 113. She has dry appearing on exam. Abdomen is soft and nontender. CBC with leukocytosis of 16.3, likely reactive, no bandemia. Chemistries with CKD, unchanged from baseline. Chemistry shows hyperglycemia of 520, normal bicarb and anion gap. Lipase within normal limits. Pending remainder of workup at time of sign-out to Dr. Coyle. Patient was given 2 L of fluids, Zofran, Pepcid and 10 units of insulin. Plan to p.o. challenge patient recheck glucose after 2 L of fluids completed. <Nga Ledezma PA-C - Last Filed: 11/04/24 02:38> Lab Data Result diagrams: 11/04/24 01:13 11/04/24 02:05 <Nga Ledezma PA-C - Last Filed: 11/04/24 02:38> Labs: Lab Results 11/04/24 11/04/24 11/04/24 Range/Units 01:13 02:05 02:14 WBC 16.3 H (4.5-10.0) K/mm3 RBC 4.75 (4.2-5.4) M/mm3 Hgb 13.4 (12.0-15.0) g/dL Hct 41.1 (37.0-47.0) % MCV 86.5 (80-100) fl MCH 28.2 (26-34) pg MCHC 32.6 (32-36) g/dl RDW 12.0 (11.5-14.5) % Plt Count 470 H (150-375) k/mm3 MPV 10.7 H (7.4-10.4) fl Immature Gran % (Auto) 0.3 (0-0.5) % Neut % (Auto) 88.3 H (45.5-73.1) % Lymph % (Auto) 5.5 L (18.3-44.2) % Mathews % (Auto) 5.8 (2.6-8.5) % Eos % (Auto) 0.0 (0-4.4) % Baso % (Auto) 0.1 L (0.2-1.2) % Lymph # (Auto) 0.90 (0.9-3.2) K/mm3 Mathews # (Auto) 0.9 H (0.1-0.6) K/mm3 Eos # (Auto) 0.0 (0-0.3) K/mm3 Baso # (Auto) 0.0 (0.0-0.1) K/mm3 Abs Immat Gran (auto) 0.05 H (0.00-0.031) K/mm3 Absolute Neuts (auto) 14.4 H (1.3-6.7) K/mm3 Absolute Nucleated RBC 0.000 (0.0-0.012) K/mm3 Nucleated RBC % 0.0 (0.0-0.2) % Sodium 137 (137-145) mmol/L Potassium 3.8 (3.4-5.0) mmol/L Chloride 98 (98-107) mmol/L Carbon Dioxide 30 (22-30) mmol/L Anion Gap 9 (4-12) mmol/L BUN 37 H D (7-17) mg/dL Creatinine 1.89 H (0.7-1.0) mg/dL Estim Creat Clear Calc 36 ml/min Estimated GFR 31 L (59 - ) Glucose 520 H* (65-110) mg/dL Calcium 9.0 (8.4-10.2) mg/dL Total Bilirubin 0.5 (0.2-1.3) mg/dL AST 30 (14-36) U/L ALT 23 (6-35) U/L Alkaline Phosphatase 112 (38-126) U/L Total Protein 7.0 (6.3-8.2) g/dL Albumin 3.8 (3.5-5.1) g/dL Lipase 138 (23-300) U/L Urine Color Yellow (Yellow) Urine Appearance Clear (Clear) Urine pH 7.5 (5.0-9.0) Ur Specific [place] 1.025 (1.001-1.035) Urine Protein 4+ H (Negative) mg/dL Urine Glucose (UA) 3+ H (Negative) mg/dL Urine Ketones 1+ H (Negative) mg/dL Ur Blood (Man) 3+ H (Negative) Urine Nitrate Negative (Negative) Urine Bilirubin Negative (Negative) Urine Urobilinogen 0.2 (<2.0) mg/dL Add Ur Microanalysis Reviewed Leukocyte Esterase Rfl Negative (Negative) CHANG/UL Urine RBC 21-50 H (0-2) /hpf Urine WBC 0-5 (0-3) /hpf Ur Squamous Epith Cells Occasional (Few) /hpf Urine Bacteria None seen /hpf Urine Casts 0-2 POC Urine HCG, Qual Negative (Negative) Influenza A (RT-PCR) Negative (Negative) Influenza B (RT-PCR) Negative (Negative) RSV (RT-PCR) Negative (Negative) SARS-CoV-2 RNA (RT-PCR) Negative (Negative) <Nga Ledezma PA-C - Last Filed: 11/04/24 02:38> Lab Results 11/04/24 11/04/24 11/04/24 Range/Units 01:13 02:05 02:14 WBC 16.3 H (4.5-10.0) K/mm3 RBC 4.75 (4.2-5.4) M/mm3 Hgb 13.4 (12.0-15.0) g/dL Hct 41.1 (37.0-47.0) % MCV 86.5 (80-100) fl MCH 28.2 (26-34) pg MCHC 32.6 (32-36) g/dl RDW 12.0 (11.5-14.5) % Plt Count 470 H (150-375) k/mm3 MPV 10.7 H (7.4-10.4) fl Immature Gran % (Auto) 0.3 (0-0.5) % Neut % (Auto) 88.3 H (45.5-73.1) % Lymph % (Auto) 5.5 L (18.3-44.2) % Mathews % (Auto) 5.8 (2.6-8.5) % Eos % (Auto) 0.0 (0-4.4) % Baso % (Auto) 0.1 L (0.2-1.2) % Lymph # (Auto) 0.90 (0.9-3.2) K/mm3 Mathews # (Auto) 0.9 H (0.1-0.6) K/mm3 Eos # (Auto) 0.0 (0-0.3) K/mm3 Baso # (Auto) 0.0 (0.0-0.1) K/mm3 Abs Immat Gran (auto) 0.05 H (0.00-0.031) K/mm3 Absolute Neuts (auto) 14.4 H (1.3-6.7) K/mm3 Absolute Nucleated RBC 0.000 (0.0-0.012) K/mm3 Nucleated RBC % 0.0 (0.0-0.2) % Sodium 137 (137-145) mmol/L Potassium 3.8 (3.4-5.0) mmol/L Chloride 98 (98-107) mmol/L Carbon Dioxide 30 (22-30) mmol/L Anion Gap 9 (4-12) mmol/L BUN 37 H D (7-17) mg/dL Creatinine 1.89 H (0.7-1.0) mg/dL Estim Creat Clear Calc 36 ml/min Estimated GFR 31 L (59 - ) Glucose 520 H* (65-110) mg/dL Calcium 9.0 (8.4-10.2) mg/dL Total Bilirubin 0.5 (0.2-1.3) mg/dL AST 30 (14-36) U/L ALT 23 (6-35) U/L Alkaline Phosphatase 112 (38-126) U/L Total Protein 7.0 (6.3-8.2) g/dL Albumin 3.8 (3.5-5.1) g/dL Lipase 138 (23-300) U/L Urine Color Yellow (Yellow) Urine Appearance Clear (Clear) Urine pH 7.5 (5.0-9.0) Ur Specific [place] 1.025 (1.001-1.035) Urine Protein 4+ H (Negative) mg/dL Urine Glucose (UA) 3+ H (Negative) mg/dL Urine Ketones 1+ H (Negative) mg/dL Ur Blood (Man) 3+ H (Negative) Urine Nitrate Negative (Negative) Urine Bilirubin Negative (Negative) Urine Urobilinogen 0.2 (<2.0) mg/dL Add Ur Microanalysis Reviewed Leukocyte Esterase Rfl Negative (Negative) CHANG/UL Urine RBC 21-50 H (0-2) /hpf Urine WBC 0-5 (0-3) /hpf Ur Squamous Epith Cells Occasional (Few) /hpf Urine Bacteria None seen /hpf Urine Casts 0-2 POC Urine HCG, Qual Negative (Negative) Influenza A (RT-PCR) Negative (Negative) Influenza B (RT-PCR) Negative (Negative) RSV (RT-PCR) Negative (Negative) SARS-CoV-2 RNA (RT-PCR) Negative (Negative) <Maryam Coyle MD - Last Filed: 11/04/24 03:38> Discharge Plan Discharge Clinical Impression: Hyperglycemia due to diabetes mellitus, Nausea, vomiting, and diarrhea <Nga Ledezma PA-C - Last Filed: 11/04/24 02:38> Patient Disposition: Home <Nga Ledezma PA-C - Last Filed: 11/04/24 02:38> Condition: Stable <Nga Ledezma PA-C - Last Filed: 11/04/24 02:38> Instructions: Acute Nausea and Vomiting (ED), Diabetic Hyperglycemia (ED) <Nga Ledezma PA-C - Last Filed: 11/04/24 02:38> Additional Instructions: Please follow up with your doctor; your blood sugar was pretty high here today, please make sure that you are able to keep it under control to help prevent future complications such as blindness, neuropathy, kidney disease leading to dialysis, etc. You can always return for any further issues. You can take the medications as prescribed <Nga Ledezma PA-C - Last Filed: 11/04/24 02:38> Patient Language: Citizen Of [place] <ANITA Longo Last Filed: 11/04/24 02:38> Prescriptions: New ondansetron 4 mg tablet,disintegrating 4 mg PO Q8H PRN (Reason: nausea and vomiting) Qty: 10 0RF No Action metformin 500 mg Tablet Extended Release 24hr 500 mg PO DAILY Farxiga 10 mg Tablet 10 mg PO DAILY sulfamethoxazole-trimethoprim 800-160 mg tablet 1 tablet PO Q12H 5 Days Qty: 10 0RF fluconazole [Diflucan] 150 mg tablet 150 mg PO ONCE Qty: 1 0RF insulin lispro 100 unit/mL solution 2 unit continuous subcutaneous infusion DIRECTED ondansetron 4 mg tablet,disintegrating 4 mg PO Q6H PRN (Reason: nausea and vomiting) Qty: 10 0RF sulfamethoxazole-trimethoprim [Bactrim DS] 800-160 mg tablet 1 tablet PO Q12H Qty: 6 0RF cephalexin 500 mg capsule 500 mg PO Q8H 7 Days Qty: 21 0RF famotidine 10 mg tablet 10 mg PO DAILY Qty: 20 0RF <Nga Ledezma PA-C - Last Filed: 11/04/24 02:38> Follow-up/Referrals: Darrell,Dragan Croft MD [Primary Care Provider] - <Nga Ledezma PA-C - Last Filed: 11/04/24 02:38>
[2024-11-04] MEDS: ONDANSETRON INJ 4 MG/2 ML VIAL IV PUSH (01:13)
[2024-11-04] MEDS: FAMOTIDINE 20 MG/2 ML VIAL IV PUSH (01:13)
[2024-11-04] MEDS: SODIUM CHLORIDE 0.9% IV 1,000 ML 999 ML IV CONT ×2 (01:15→02:43)
[2024-11-04 01:23] LABS: Basophils Percent Auto 0.1 % (0.2-1.2); Hematocrit 41.1 % (37.0-47.0); Hemoglobin 13.4 g/dL (12.0-15.0); Immature Granulocyte Absolute 0.05 K/mm3 (0.00-0.031); Immature Granulocyte Percent A 0.3 % (0-0.5); Lymphocytes Percent Auto 5.5 % (18.3-44.2); Mean Corpuscular HGB Conc 32.6 g/dl (32-36); Mean Corpuscular Hemoglobin 28.2 pg (26-34); Mean Corpuscular Volume 86.5 fl (80-100); Mean Platelet Volume 10.7 fl (7.4-10.4); Monocytes Absolute Auto 0.9 K/mm3 (0.1-0.6); Monocytes Percent Auto 5.8 % (2.6-8.5); Neutrophils Absolute Auto 14.4 K/mm3 (1.3-6.7); Neutrophils Percent Auto 88.3 % (45.5-73.1); Platelet Count Result 470 k/mm3 (150-375); Red Blood Count 4.75 M/mm3 (4.2-5.4); White Blood Count 16.3 K/mm3 (4.5-10.0)
--- OUTSIDE RECORDS SUMMARY | 2024-11-04 01:23 | XMS_ITS | Clinical Summary ---
Author Organization [facility] Address [address] [place] [address] Care Team Providers Care Laser Operator Name Role Phone Mahamed Rosenberg MD Primary Care Provider Anna Gavin MD Unavailable Portia Doss OD Unavailable [phone] Allergies Active Allergy Reactions Criticality Noted Date Comments Metformin Nausea & Vomiting High 07/15/2023 Penicillins Rash,Vomiting Medium 05/28/2023 Medications alcohol swabs pads, medicated APPLY 1 PAD EVERY DAY BY TOPICAL ROUTE DIRECTED 3 Active spironolactone (ALDACTONE) 100 mg tablet TAKE 1 TABLET BY MOUTH ONCE DAILY WITH MEALS 4 Active atorvastatin (LIPITOR) 40 mg tabletIndication s:Type 2 diabetes mellitus with hyperglycemia, with long-term current use of insulin (HCC) Take 1 tablet (40 mg total) by mouth daily 90 tablet 3 4 Active insulin lispro (ADMELOG) 100 unit/mL pen for injectionIndicat ions:Type 2 diabetes mellitus with hyperglycemia, with long-term current use of insulin (HCC) Inject 3 Units under the skin 3 (three) times a day with meals 15 mL 4 Active ondansetron (Zofran) 4 mg tablet Take 1 tablet (4 mg total) by mouth every 8 (eight) hours as needed for nausea or vomiting 20 tablet 1 4 Active Additional Information Patient not taking.Reported on 05/27/2024 dapagliflozin propanediol (Farxiga) 10 mg tabletIndication s:Chronic Kidney Disease,type 2 diabetes mellitus Take 1 tablet (10 mg total) by mouth daily 30 tablet 2 4 Active blood-glucose meter kitIndications:H yperlipidemia associated with type 2 diabetes mellitus (HCC) For home blood glucose monitoring; 3 times daily 1 kit 4 Active Additional Information Patient not taking.Reported on 05/27/2024 insulin glargine (LANTUS) 100 unit/mL (3 mL) pen for injectionIndicat ions:Hyperlipide barbie associated with type 2 diabetes mellitus (HCC) Inject 15 Units under the skin nightly 4 Active famotidine (PEPCID) 10 mg tablet TAKE 1 TABLET BY MOUTH ONCE DAILY 4 Active cephalexin (KEFLEX) 500 mg capsule TAKE 1 CAPSULE BY MOUTH EVERY 8 HOURS FOR 7 DAYS 4 Active insulin syringe-needle U-100 (TRUEplus Insulin) 0.3 mL 30 gauge x 5/16 syringe USE SYRINGE ONCE DAILY Active insulin syringe-needle U-100 1 mL 31 gauge x 5/16 syringe Active OneTouch Ultra Test strip Active lancets [facility] [place] bs daily 6 Active isopropyl alcohol-benzocai ne (Alcohol-Benzoca ine) 70-6 % pads, medicated Acti ve pen needle, diabetic (BD Akiko 2nd Gen Pen Needle) 32 gauge x 5/32 needle USE 1 NEW PEN NEEDLE 4 TIMES DAILY Active blood-glucose meter,continuous (Dexcom G6 Health Inspector) [facility] [place] Activ e flash glucose sensor (FreeStyle Sonia 2 Sensor) kit USE 1 SENSOR EVERY 14 DAYS FOR CONTINUOUS BLOOD GLUCOSE MONITOR Active blood-glucose transmitter (Dexcom G6 Transmitter) device Active blood-glucose sensor (Dexcom G6 Sensor) device Active pantoprazole DR (PROTONIX) 40 mg EC tabletIndication s:Gastroesophage al reflux disease with esophagitis without hemorrhage Take 1 tablet (40 mg total) by mouth daily 30 tablet 11 4 05/27/20 25 Active Active Problems Problem Noted Date Diagnosed Date Gastroesophageal reflux dise ase with esophagitis without hemorrhage 05/28/2024 Assessment & Plan (05/28/2024 12:23 PM JAVA J2EE SOFTWARE ENGINEER): Leaning towards reflux as the etiology, she was not in diabetic ketoacidosis at last ER visit. Protonix daily Pepcid PRN if breakthrough burning pain Will need to get an EGD set up (through GI) Stay hydrated, continue to monitor blood sugars. Getting records from [facility] Encounter for medical examination to establish c are 07/16/2023 Assessment & Plan (07/16/2023 1:39 PM JAVA J2EE SOFTWARE ENGINEER): A(n) initial visit to establish care has been performed today. Moshe Sy is not up to date on screening tests. She is in need of Diabetic eye exam, Diabetic foot exam, Diabetic kidney disease screening, and Cholesterol screening. She is not up to date on needed preventative vaccinations; She is in need of Covid-19 (booster). We discussed healthy lifestyle habits, educational material has been given. Medications reviewed, changes documented as per the medical record and discussed with patient along with risks vs benefits. Return in 3 months Iron deficiency anemia 07/16/2023 Diabetes mellitus 07/15/2023 Assessment & Plan (09/24/2023 9:49 PM CDT): Chronic, uncontrolled, improving but still above 8.6% Counseled on healthy diet and exercise Prescribe DEXCOM G 7 CGM Continue current insulin regimen Continue oral Farxiga Rule out type 1 DM Recommend annual dilated eye exam Educated hypoglycemia Daily foot care Follow-up in 3 months Hyperlipidemia associated with type 2 diabetes m lazaroitus 07/15/2023 Assessment & Plan (09/24/2023 9:47 PM CDT): Continue statin therapy Microalbuminuric diabetic nephropathy 07/15/2023 Type 2 diabetes mellitus with hyperglycemia 06/18 Type 2 diabetes mellitus with chronic kidney dis ease 07/15/2023 Elevated serum creatinine 05/28/2023 Assessment & Plan (05/29/2023 2:50 PM JAVA J2EE SOFTWARE ENGINEER): SCr 1.39 on admission, no priors for comparison. Suspect VARGAS iso DKA, N/V. S/p 2L IVF and additional fluids with SQUID protocol. Most recent labs available for review are from 2020 at which time Cr was 0.96 - UPC 7515, likely VARGAS on CKD - continue to monitor Nausea and vomiting 05/28/2023 Assessment & Plan (05/30/2023 12:07 PM JAVA J2EE SOFTWARE ENGINEER): Patient presenting with N/V and a few episodes of loose stools. DDx includes DKA, gastroenteritis - continue to monitor - antiemetics prn - resolved Normocytic anemia 05/28/2023 Assessment & Plan (05/30/2023 12:07 PM JAVA J2EE SOFTWARE ENGINEER): Hgb 11.2 on admission, no priors for comparison. Iron panel: iron 24, ferritin 110, TIBC 231, Tsat 10. - b12 pending - continue to monitor - dc on iron supplementation Resolved Problems Problem Noted Date Diagnosed Date Resolved Date Diabetic ketoacidosis associ ated with type 2 diabetes mellitus 05/30/2023 03/26/2024 DKA (diabetic ketoacidosis) 05/28/2023 10/14/2023 Assessment & Plan (05/30/2023 12:07 PM JAVA J2EE SOFTWARE ENGINEER): Patient presenting with abdominal pain, N/V, and a few episodes of loose stools. She was found to have BG in 400's with positive serum ketones and anion gap of 18. VBG 7.30/57 (unclear etiology of respiratory acidosis as patient denies history of lung disease). Unclear based on history provided if GI symptoms triggered hyperglycemia or were the result. Patient denies missing any doses of her insulin. Interestingly, states she was diagnosed at age of 12 and is type 2. States she only takes long acting insulin, but is unsure how many units. - A1C 11.7 - LDL 263, start statin - type 1 diabetes Ab panel pending - initially managed on SQUID protocol, transitioned to weight based basal/bolus once AG closed - continue Lantus 10 units qhs, Lispro 3 units TIDAC Immunizations Immunization Administration Dates Next Due DTP 04/09/1994, 3,1992,07/06 DTaP 11/26/1997 HPV, Quadrivalent 12/20/2006,09/19/2006 Hep A, Pediatric 09/19/2006,01/08/2003 Hep B, Adolescent or Pediatric 04/09/1994,1992,1992 HiB 09/11/1993, 3,1992,07/06 Influenza, Quadrivalent, Spl it, Intramuscular 08/29/2020 Influenza, Quadrivalent, Spl it, Preservative Free, Intramuscular 06/06/2022 Influenza, Trivalent, Preser vative Free, Intramuscular 04/21/2024 Influenza, Unspecified 07/15/2023(Deferr ed: Patient Refused),06/18/2022(Deferred: Patient Refused),06/06/2022,05/06/2003 MMR 11/26/1997,09/11/1993 Meningococcal Polysaccharide (Menomune) 09/19/2006 OPV 11/26/1997, 3,1992,07/06 Td, adsorbed 05/06/2003 Tdap 12/14/2021 Medical History Medical History Date Comments Diabetes mellitus (HCC) Hypercholesterolemia PCOS (polycystic ovarian syndrome) Diabetic ketoacidosis associ ated with type 2 diabetes mellitus (HCC) 05/30/2023 Family History Medical History Relation Name Comments Diabetes Father Gera Throat cancer Maternal Grandfather COPD Maternal Grandmother Daria Heart failure Maternal Grandmother Daria Prediabetes Mother No Known Problems Paternal Grandfather Stroke Paternal Grandmother Macrina prediabetes Paternal Grandmother Macrina No Known Problems Paternal Half-Sister Relation Name Status Comments Father Gera Alive Maternal Grandfather Maternal Grandmother Daria Alive Mother Alive Paternal Grandfather Paternal Grandmother Macrina Alive Paternal Half-Sister Alive Social History Tobacco Use Types Packs/Day Years Used Date Smoking Tobacco: Never Cigarettes Smokeless Tobacco: Never Tobacco Cessation:Counseling Given: Not Answered Alcohol Use Standard Drinks/Week Comments Never 0 (1 standard drink = 0.6 oz pur e alcohol) AUDIT-C Answer Date Recorded Q1: How often do you have a drink containing alcohol? Never 07/15/2023 Q2: How many drinks containi ng alcohol do you have on a typical day when you are drinking? Patient does not drink Q3: How often do you have si x or more drinks on one occasion? Never 07/15/2023 PHQ-2 Answer Date Recorded PHQ-2 Total Score (If total score is 3 or more points, staff should administer the PHQ-9) 4 04/21/2024 PHQ-9 Answer Date Recorded PHQ-9 Total Score 6 04/21/2024 Personal Safety Answer Date Recorded Have you ever been in or are you currently in a harmful physical or emotional relationship or is someone making you feel afraid or unsafe? Denies 05/28/2023 Comments No Sex and Gender Information Value Date Recorded Sex Assigned at Not on file Legal Sex Female 7:07 PM JAVA J2EE SOFTWARE ENGINEER Gender Identity Female 03/17/2024 11:38 AM CDT Sexual Orientation Straight 03/17/2024 11 :38 AM CDT Obstetrics History Last Filed Vital Signs Vital Sign Reading Time Taken Comments Blood Pressure 120/80 05/27/2024 9:57 AM JAVA J2EE SOFTWARE ENGINEER Pulse 57 05/27/2024 9:57 AM JAVA J2EE SOFTWARE ENGINEER Temperature 36 C (96.8 F) 05/27/2024 9:57 AM JAVA J2EE SOFTWARE ENGINEER Respiratory Rate 16 05/27/2024 9:57 AM JAVA J2EE SOFTWARE ENGINEER Oxygen Saturation 98% 05/27/2024 9:57 AM JAVA J2EE SOFTWARE ENGINEER Inhaled Oxygen Concentration - - Weight 58.5 kg (129 lb) 05/27/2024 9:57 AM JAVA J2EE SOFTWARE ENGINEER Height 167.6 cm (5' 6 ) 05/27/2024 9:57 AM JAVA J2EE SOFTWARE ENGINEER Body Mass Index 20.82 05/27/2024 9:57 AM JAVA J2EE SOFTWARE ENGINEER Plan of Treatment Health Maintenance Due Date Last Done Comments Hepatitis C Screening 1992 Dilated Eye Exam 1992 HPV Vaccines (3 - 2-dose series) 03/21/2007 12/21/19 07, 09/19/2006 Regular Well Visit/Exam 18-64 2010 Pneumococcal vaccine <65 (1 of 2 - PCV) 2011 Covid-19 Vaccine ( - 2023-2 5 season) 2024 06/28/2022, 06/06/2022 Cervical Cancer Screening 07/10/2024 07/10/2023 Lipid Panel 07/15/2024 07/15/2023, 05/17, 05/28/2023 Foot Exam 09/18/2024 09/19/2023, 07/15/2023 Hemoglobin A1C 11/03/2024 05/06/2024, 03/18, 09/19/2023, Additional history exists Depression Screening 04/21/2025 04/21/2024, 04/21/2024, 10/14/2023, Additional history exists eGFR 04/21/2025 04/21/2024, 06/18, 05/29/2023, Additional history exists Albumin Creatinine Ratio, Urine 05/06/2025 , 07/15/2023 DTaP/Tdap/Td Vaccine (7 - Td or Tdap) 12/15/2031 12/14/2021, 05/06/2003, 11/26/1997, Additional history exists Hepatitis B Screening Completed 04/09/1994 , 03/19/1993, 1992 Influenza Vaccine Completed 04/21/2024, , 06/06/2022, Additional history exists Varicella Vaccines Discontinued Procedures Procedure Name Priority Date/Time Associated Diagnosis Comments HEMOGLOBIN A1C Routine 05/06/2024 10:00 AM JAVA J2EE SOFTWARE ENGINEER Hyperlipidemia associated with type 2 diabetes mellitus (HCC) ALBUMIN CREATININE RATIO, URINE Routine 05/06/2024 10:00 AM JAVA J2EE SOFTWARE ENGINEER Hyperlipidemia associated with type 2 diabetes mellitus (HCC) EGFR Routine 04/21/2024 10:51 AM JAVA J2EE SOFTWARE ENGINEER Diabetic ketoacidosis without coma associated with type 2 diabetes mellitus (HCC) LIPID PANEL Routine 07/15/2023 11:20 AM JAVA J2EE SOFTWARE ENGINEER Hypercholesterolemia HM PAP SMEAR WITH HPV Routine 07/10/2023 from Last 3 Months or Most Recently Relevant to Health Maintenance Results * (ABNORMAL) Albumin Creatinine Ratio, Urine (05/06/2024 10:00 AM JAVA J2EE SOFTWARE ENGINEER) Albumin Ur 1,240.2 mg/L Comment: Interpretive Data No reference range established. Current interpretive data was last revised 2018. Creatinine Ur 132.9 mg/dL [facility] MOSS Comment: Interpretive Data No reference range established. Current interpretive data was last revised 2018. Albumin Creatinine Ratio, Ur 933(H) 1 - 29 mg/g [facility] Urine 05/06/2024 10:0 0 AM JAVA J2EE SOFTWARE ENGINEER 05/06/2024 4:20 PM JAVA J2EE SOFTWARE ENGINEER Mahamed Rosenberg MD LAB URINE ORDERABLES Final Result Performing Organization Address City/[facility] Co de Phone Number [facility] [address] [place] [address] * (ABNORMAL) Hemoglobin A1c (05/06/2024 10:00 AM JAVA J2EE SOFTWARE ENGINEER) Hgb A1C 8.3(H) 4.0 - 5.6 % Estimated Average Glucose 192 mg/dL [facility] Comment: The ADA recommends reporting an estimated Average Glucose (eAG) with all Hemoglobin A1c results using the equation derived from a study of 507 normal and diabetic adults. Minority populations were underrepresented and children were not included. (Diabetes Care 31:0291-5099, 2008). The eAG is not equivalent to a fasting glucose. Blood 05/06/2024 10:0 0 AM JAVA J2EE SOFTWARE ENGINEER 05/06/2024 4:20 PM JAVA J2EE SOFTWARE ENGINEER Mahamed Rosenberg MD LAB BLOOD ORDERABLES Final Result Performing Organization Address [facility] Co de Phone Number [facility] [address] Department [facility] [place] [address] * (ABNORMAL) eGFR (04/21/2024 10:51 AM JAVA J2EE SOFTWARE ENGINEER) eGFR 34(L) >=60 mL/min/1. 73 m2 Comment: Interpretive Data Reference Interval Normal >/= 90 mL/min/1.73m2 Mildly decreased* 60 - 89 mL/min/1.73m2 Mildly to moderately decreased 45 - 59 mL/min/1.73m2 Moderately to severely decreased 30 - 44 mL/min/1.73m2 Severely decreased 15 - 29 mL/min/1.73m2 Kidney Failure < 15 mL/min/1.73m2 *Relative to young adult level Estimated glomerular filtration rate is determined by the 2020 CKD-EPI equation recommended by the National Kidney Foundation (A Unifying Approach to GFR Estimation: Recommendations of the NKF-ASK Task Force on Reassessing the Inclusion of Race in Diagnosing Kidney Disease, JASN 2020). The CKD-EPI equation should not be used for patients with unstable renal function and has not been validated in children and those over 70. Current interpretive data was last reviewed 2021. Blood 04/21/2024 10:5 1 AM JAVA J2EE SOFTWARE ENGINEER 04/21/2024 7:05 PM JAVA J2EE SOFTWARE ENGINEER us Mahamed Rosenberg MD LAB BLOOD ORDERABLES Final Result [facility] [address] Department [place] [address] * (ABNORMAL) Lipid panel (07/15/2023 11:20 AM JAVA J2EE SOFTWARE ENGINEER) Cholesterol 232(H) 30 - 199 mg/dL [facility] MOSS Comment: Interpretive Data Ages < or = 19 years Acceptable: <170 mg/dL Borderline high: 170-199 mg/dL High: >or= 200 mg/dL Ages > or = 20 years Desirable: <200 mg/dL Borderline high: 200-239 mg/dL High: >or= 240 mg/dL Literature References: 1. Expert Panel on Integrated Guidelines for Cardiovascular Health and Risk Reduction in Children and Adolescents. Pediatrics 2011;128:S213 2. NCEP Expert Panel. Circulation 2004;110:227 Current Interpretive Data was last revised on 2018. Triglycerides 139 <=149 mg/dL [facility] MOSS Comment: Interpretive Data Ages < or = 9 years Acceptable: <75 mg/dL Borderline high: 75-99 mg/dL High: >or= 100 mg/dL Ages 10 to 20 years Acceptable: <90 mg/dL Borderline high: 90-129 mg/dL High: >or= 130 mg/dL Ages > or = 20 years Desirable: <150 mg/dL Borderline high: 150-199 mg/dL High: 200-499 mg/dL Very high: >or= 499 mg/dL Literature References: 1. Expert Panel on Integrated Guidelines for Cardiovascular Health and Risk Reduction in Children and Adolescents. Pediatrics 2011;128:S213 2. NCEP Expert Panel. Circulation 2004;110:227 Current Interpretive Data was last revised on 2018. HDL 52 >=40 mg/dL ANAN[facility] MOSS Comment: Interpretive Data Ages < or = 19 years Acceptable: >45 mg/dL Borderline low: 40-45 mg/dL Low: <40 mg/dL Ages > or = 20 years Desirable: >or= 60 mg/dL Low: <40 mg/dL Literature References: 1. Expert Panel on Integrated Guidelines for Cardiovascular Health and Risk Reduction in Children and Adolescents. Pediatrics 2011;128:S213 2. NCEP Expert Panel. Circulation 2004;110:227 Current Interpretive Data was last revised on 2018. LDL, calculated 152(H) <=129 mg/dL [facility] MOSS Comment: Interpretive Data Ages < or = 19 years Acceptable: <110 mg/dL Borderline high: 110-129 mg/dL High: >or= 130 mg/dL Ages > or = 20 years Optimal: <100 mg/dL Near optimal: 100-129 mg/dL Borderline high: 130-159 mg/dL High: >160 mg/dL Literature References: 1. Expert Panel on Integrated Guidelines for Cardiovascular Health and Risk Reduction in Children and Adolescents. Pediatrics 2011;128:S213 2. NCEP Expert Panel. Circulation 2004;110:227 Current Interpretive Data was last revised on 2018. Non-HDL Cholesterol 180 mg/dL ANANTH MOSS Comment: Interpretive Data Ages < or = 19 years Acceptable: <120 mg/dL Borderline high: 120-144 mg/dL High: >145 mg/dL Ages > or = 20 years When triglycerides are >200 mg/dL, Non-HDL cholesterol is a secondary target of therapy with treatment goals that are 30 mg/dL greater than the LDL cholesterol target. Literature References: 1. Expert Panel on Integrated Guidelines for Cardiovascular Health and Risk Reduction in Children and Adolescents. Pediatrics 2011;128:S213 2. NCEP Expert Panel. Circulation 2004;110:227 Current Interpretive Data was last revised on 2018. Chol/HDL ratio 4 [facility] Blood 07/15/2023 11:2 0 AM JAVA J2EE SOFTWARE ENGINEER 07/15/2023 4:13 PM JAVA J2EE SOFTWARE ENGINEER Mahamed Rosenberg MD LAB BLOOD ORDERABLES Final Result Performing Organization Address City/[place] Number [place] [address] [address] [place] [address] * HM PAP SMEAR WITH HPV (07/10/2023) us Historical Provider HEALTH MAINTENANCE Final Result from Last 3 Months or Most Recently Relevant to Health Maintenance Insurance [facility] [employer] [place] [address] [place] [address] Advance Directives For more information, please contact: [phone] * Full Code (Latest Code Status on File) Date Activated Date Inactivated Comments 05/28/2023 9:01 PM 05/30/2023 3:53 PM Care Teams Laser Operator Relationship Specialty Start Date End Date Mahamed Rosenberg MD [address] [facility] [address] [place] [address] PCP - General Family Medicine 07/15/23 Anna Gavin MD [address] [facility] [address] [place] [address] Internal Medicine 07/15/23 Portia Doss OD [address] [facility] [address] [place] [address] Optometry 07/15/23
--- OUTSIDE RECORDS SUMMARY | 2024-11-04 01:23 | XMS_ITS | Clinical Summary ---
Author Organization [facility] Address [address] [place] [address] Phone Care Team Providers Care Manager Of Supply Chain Name Role Phone Mahamed Rosenberg MD Primary [...] 9.5(H) <5.7 % 2024 4:33 PM CDT [facility] EST. AVG GLUCOSE, A1C 226 mg/dL 2024 4:33 PM CDT [facility] Blood Venipuncture / Unknown 2024 3:46 PM CDT 2024 3:51 PM CDT Narrative [facility] - 2024 4:33 PM CDT HGB A1C INTERPRETATION NORMAL: <5.7% PRE-DIABETES: 5.7 - 6.4% DIABETES: 6.5% OR GREATER us Kevin Cannon MD CHEMISTRY ORDERABLES Final Re sult [facility] Organization Address City/State/ZIP Co de Phone Number [facility]# [id number] [address] [place] [id number] from Last 3 Months or Most Recently Relevant to Health Maintenance Insurance [facility] BLUE ACCESS CHOICE Care Teams Manager Of Supply Chain Relationship Specialty Start Date End Date Mahamed Rosenberg MD [address] [place] [address] PCP - General Family Practice 04/07/24
--- OUTSIDE RECORDS SUMMARY | 2024-11-04 01:23 | XMS_ITS | Referral Summary ---
Author Organization [facility], formerly [facility] Address [address] [place] [address] Care Team Providers Care Pre K Lead Teacher Name Role Phone Mahamed Rosenberg MD Primary Care Provider Anna Gavin MD Unavailable Portia Doss OD Unavailable [phone] Allergies Active Allergy Reactions Criticality Noted [...] Active OneTouch Ultra Test strip Active lancets [facility] use to test bs daily 6 Active isopropyl alcohol-benzocai ne (Alcohol-Benzoca ine) 70-6 % pads, medicated Acti ve pen needle, diabetic (BD Akiko 2nd Gen Pen Needle) 32 gauge x 5/32 needle USE 1 NEW PEN NEEDLE 4 TIMES DAILY Active blood-glucose meter,continuous (Dexcom G6 Mini Shifter) [facility] Activ e flash glucose sensor (FreeStyle Sonia [...] 05/28/2024 Assessment & Plan (05/28/2024 12:23 PM FEEDER DRIVER): Leaning towards reflux as the etiology, she was not in diabetic ketoacidosis at last ER visit. Protonix daily Pepcid PRN if breakthrough burning pain Will need to get an EGD set up (through GI) Stay hydrated, continue to monitor blood sugars. Getting records from [facility] for medical examination to establish c are 07/16/2023 Assessment & Plan (07/16/2023 1:39 PM FEEDER DRIVER): A(n) initial visit to establish care has [...] 05/28/2023 Assessment & Plan (05/29/2023 2:50 PM FEEDER DRIVER): SCr 1.39 on admission, no priors for comparison. Suspect VARGAS iso DKA, N/V. S/p 2L IVF and additional fluids with SQUID protocol. Most recent labs available for review are from 2020 at which time Cr was 0.96 - UPC 7515, likely VARGAS on CKD - continue to monitor Nausea and vomiting 05/28/2023 Assessment & Plan (05/30/2023 12:07 PM FEEDER DRIVER): Patient presenting with N/V and a few episodes of loose stools. DDx includes DKA, gastroenteritis - continue to monitor - antiemetics prn - resolved Normocytic anemia 05/28/2023 Assessment & Plan (05/30/2023 12:07 PM FEEDER DRIVER): Hgb 11.2 on admission, no priors for comparison. Iron panel: iron 24, ferritin 110, TIBC 231, Tsat 10. - b12 pending - continue to monitor - dc on iron supplementation Resolved Problems Problem Noted Date Diagnosed Date Resolved Date Diabetic ketoacidosis associ ated with type 2 diabetes mellitus 05/30/2023 03/26/2024 DKA (diabetic ketoacidosis) 05/28/2023 10/14/2023 Assessment & Plan (05/30/2023 12:07 PM FEEDER DRIVER): Patient presenting with abdominal pain, N/V, and [...] 11/26/1997, 3,1992,07/06 Td, adsorbed 05/06/2003 Tdap 12/14/2021 Social History Tobacco Use Types Packs/Day Years [...] on file Legal Sex Female 7:07 PM FEEDER DRIVER Gender Identity Female 03/17/2024 11:38 AM CDT Sexual Orientation Straight 03/17/2024 11 :38 AM CDT Last Filed Vital Signs Vital Sign Reading Time Taken Comments Blood Pressure 120/80 05/27/2024 9:57 AM FEEDER DRIVER Pulse 57 05/27/2024 9:57 AM FEEDER DRIVER Temperature 36 C (96.8 F) 05/27/2024 9:57 AM FEEDER DRIVER Respiratory Rate 16 05/27/2024 9:57 AM FEEDER DRIVER Oxygen Saturation 98% 05/27/2024 9:57 AM FEEDER DRIVER Inhaled Oxygen Concentration - - Weight 58.5 kg (129 lb) 05/27/2024 9:57 AM FEEDER DRIVER Height 167.6 cm (5' 6 ) 05/27/2024 9:57 AM FEEDER DRIVER Body Mass Index 20.82 05/27/2024 9:57 AM FEEDER DRIVER Plan of Treatment Not on file Procedures Procedure Name Priority Date/Time Associated Diagnosis Comments HEMOGLOBIN A1C Routine 05/06/2024 10:00 AM FEEDER DRIVER Hyperlipidemia associated with type 2 diabetes mellitus (HCC) ALBUMIN CREATININE RATIO, URINE Routine 05/06/2024 10:00 AM FEEDER DRIVER Hyperlipidemia associated with type 2 diabetes mellitus (HCC) EGFR Routine 04/21/2024 10:51 AM FEEDER DRIVER Diabetic ketoacidosis without coma associated with type 2 diabetes mellitus (HCC) LIPID PANEL Routine 07/15/2023 11:20 AM FEEDER DRIVER Hypercholesterolemia HM PAP SMEAR WITH HPV Routine 07/10/2023 from Last 3 Months or Most Recently Relevant to Health Maintenance Results * (ABNORMAL) Albumin Creatinine Ratio, Urine (05/06/2024 10:00 AM FEEDER DRIVER) Albumin Ur 1,240.2 mg/L Comment: Interpretive Data No reference range established. Current interpretive data was last revised 2018. Creatinine Ur 132.9 mg/dL [facility] Comment: Interpretive Data No reference range established. Current interpretive data was last revised 2018. Albumin Creatinine Ratio, Ur 933(H) 1 - 29 mg/g ANANTH Urine 05/06/2024 10:0 0 AM FEEDER DRIVER 05/06/2024 4:20 PM FEEDER DRIVER Mahamed Rosenberg MD LAB URINE ORDERABLES Final Result Performing Organization Address [facility] Co de Phone Number ANANTH MOSS [address] [place] [address] * (ABNORMAL) Hemoglobin A1c (05/06/2024 10:00 AM FEEDER DRIVER) Hgb A1C 8.3(H) 4.0 - 5.6 % Estimated Average Glucose 192 mg/dL ANANTH MOSS Comment: The ADA recommends reporting an estimated Average Glucose (eAG) with all Hemoglobin A1c results using the equation derived from a study of 507 normal and diabetic adults. Minority populations were underrepresented and children were not included. (Diabetes Care 31:9606-3269, 2008). The eAG is not equivalent to a fasting glucose. Blood 05/06/2024 10:0 0 AM FEEDER DRIVER 05/06/2024 4:20 PM FEEDER DRIVER Mahamed Rosenberg MD LAB BLOOD ORDERABLES Final Result Performing Organization Address [facility] Co de Phone Number ANANTH MOSS [address] [facility] [place] [address] * (ABNORMAL) eGFR (04/21/2024 10:51 AM FEEDER DRIVER) eGFR 34(L) >=60 mL/min/1. 73 m2 Comment: [...] reviewed 2021. Blood 04/21/2024 10:5 1 AM FEEDER DRIVER 04/21/2024 7:05 PM FEEDER DRIVER us Mahamed Rosenberg MD LAB BLOOD ORDERABLES Final Result ANANTH MOSS [address] [facility] [place] [address] * (ABNORMAL) Lipid panel (07/15/2023 11:20 AM FEEDER DRIVER) Cholesterol 232(H) 30 - 199 mg/dL ANANTH [...] revised on 2018. Chol/HDL ratio 4 ANANTH MOSS Blood 07/15/2023 11:2 0 AM FEEDER DRIVER 07/15/2023 4:13 PM FEEDER DRIVER us Mahamed Rosenberg MD LAB BLOOD ORDERABLES Final Result ANANTH MOSS [address] Department [place] [address] * PAP SMEAR WITH HPV (07/10/2023) us Historical Provider MD HEALTH MAINTENANCE Final Result from Last 3 Months or Most Recently Relevant to Health Maintenance [place] [address] [place] [address] Advance Directives For more information, please contact: [phone] * Full Code (Latest Code Status on File) Date Activated Date Inactivated Comments 05/28/2023 9:01 PM 05/30/2023 3:53 PM Care Teams Pre K Lead Teacher Relationship Specialty Start Date End Date Mahamed Rosenberg MD [address] [place] [address] PCP - General Family Medicine 07/15/23 Anna Gavin MD [address] [place] [address] Internal Medicine 07/15/23 Portia Doss OD [address] [place] [address] Optometry 07/15/23
[2024-11-04 02:18] LABS: BEDSIDEPREGUCG Negative (Negative)
[2024-11-04 02:32] LABS: Alanine Aminotransferase 23 U/L (6-35); Albumin Level 3.8 g/dL (3.5-5.1); Alkaline Phosphatase 112 U/L (38-126); Anion Gap 9 mmol/L (4-12); Aspartate Amino Transferase 30 U/L (14-36); Bilirubin,Total 0.5 mg/dL (0.2-1.3); Blood Urea Nitrogen 37 mg/dL (7-17); Carbon Dioxide 30 mmol/L (22-30); Chloride 98 mmol/L (98-107); Estimated CRCL calculation 36 ml/min; Estimated Glomerular Filt Rate 31; Glucose 520 mg/dL (65-110); Lipase 138 U/L (23-300); Potassium 3.8 mmol/L (3.4-5.0); Sodium 137 mmol/L (137-145)
[2024-11-04 02:36] LABS: Add Urine Microscopic? YES; Appearance Urine Clear (Clear); Bacteria Urine None Seen /hpf; Bilirubin Urine Negative (Negative); Blood Urine 3+ (Negative); Color Urine Yellow (Yellow); Glucose Urine UA 3+ mg/dL (Negative); Ketones Urine 1+ mg/dL (Negative); Leukocyte Esterase Ur Negative LEU/UL (Negative); Need Manual Microscopic Reviewed; Nitrate Urine Negative (Negative); Non Pathogenic Casts 0-2; Protein Urine 4+ mg/dL (Negative); RBC Urine 21-50 /hpf (0-2); Specific Grav Ur 1.025 (1.001-1.035); Squamous Epithelial Cell Urine Occasional /hpf (Few); Urobilinogen Urine 0.2 mg/dL (<2.0); WBC Urine 0-5 /hpf (0-3); pH Urine 7.5 (5.0-9.0)
[2024-11-04] MEDS: INSULIN HUMAN REGULAR (*BKC) 100 UNITS/ML 10 UNITS SUB-Q (02:43)
[2024-11-04 03:15] LABS: Influenza A QL RT-PCR Negative (Negative); Influenza B QL RT-PCR Negative (Negative); RSV RNA, RT-PCR Negative (Negative); SARS-CoV-2 RNA PCR Negative (Negative)
--- NOTE | 2024-11-04 03:33 | PC.NURSE ---
repeat bs is 394
[2024-11-04 03:35] LABS: Glucose Point of Care 394 mg/dl (65-105)
--- NOTE | 2024-11-04 03:35 | PC.NURSE ---
pt reports feeling better and would like to go home. Pt able to keep down a glass of water.
== END 2024-11-04 03:52 | disposition home or self-care (01) ==
PROVIDERS: Physician Assistant; Emergency Provider Emergency Medicine; PCP Internal Medicine
DX: R11.2 Nausea with vomiting, unspecified (principal); R19.7 Diarrhea, unspecified; E11.65 Type 2 diabetes mellitus with hyperglycemia; Z20.822 Contact with and (suspected) exposure to COVID-19; E78.00 Pure hypercholesterolemia, unspecified; Z79.84 Long term (current) use of oral hypoglycemic drugs; Z79.899 Other long term (current) drug therapy; Z79.82 Long term (current) use of aspirin
CPT/HCPCS: 36415; 71045; 80053; 81001; 81025; 82948; 83690; 85025; 87637; 96361; 96374; 96375; 99284; J1815; J2405; J7030